=== PATIENT | male | born 1965 | race Caucasian/White ===

== ENCOUNTER 2025-04-20 19:00 | Inpatient (IN) | payer MEDICARE, MEDICAID, SELFPAY ==
[2025-04-20] VITALS (18 sets, daily range): BP systolic 108–126; BP diastolic 49–92; PULSE 70–88; RESP 12–26; TEMP 36.4–36.8; O2SAT 90–100; BMI 33.3
--- NOTE | ~2025-04-20 | CT_ITS ---
CT HEAD NON-CONTRAST Clinical History: change in status Comparison: CT brain 04/20/2025 MR brain 04/21/2025 Technique: Unenhanced axial images skull base to vertex Coronal, sagittal reformats CT images acquired with automatic exposure control for dose reduction DLP: 681 mGy-cm Findings: Large encephalomalacia right MCA distribution. No intracerebral hemorrhage. Sulci, ventricles: Unremarkable. No evidence acute territorial infarct. No mass effect, midline shift. Bony calvarium intact. Visualized paranasal sinuses: Clear. Mastoid air cells: Clear. IMPRESSION: 1. No change or acute intracranial findings. Reviewed, dictated and finalized at location R. ICE BAR CASHIER
--- NOTE | ~2025-04-20 | XR_ITS ---
EXAMINATION: XR shoulder LT min 2V DATE: 04/21/2025 11:39 INDICATION: Injury TECHNIQUE: Left shoulder x-rays were obtained. COMPARISON: None. FINDINGS: No displaced fracture dislocation or aggressive bone lesion seen. The greater tuberosity is not well profiled on frontal projection. No focal acute soft tissue abnormality seen. IMPRESSION: 1. No displaced fracture lucency. Exam somewhat limited as above. Reviewed, dictated and finalized at location A. ANET DEVELOPER
--- NOTE | ~2025-04-20 | CT_ITS ---
CT brain wo con HISTORY:ams, left facial droop COMPARISON: None. TECHNIQUE: Axial images were obtained of the head without intravenous contrast. FINDINGS: No acute intracranial hemorrhage, mass effect or midline shift. No extra-axial fluid collections. Large subacute infarct involving the right MCA territory.Visualized paranasal sinuses and mastoid air cells are clear. IMPRESSION: Large subacute infarct involving the right MCA territory. All CT scans at this facility are performed using low dose modulation techniques as appropriate to perform exam including the following: automated exposure control; use of iterative reconstruction technique; adjustment of the mA and/or kV according to patient size (this includes techniques or standardized protocols for targeted exams where dose is matched to indication/reason for exam). Reviewed, dictated and finalized at location S. RALIAN RULES FOOTBALLER IMPRESSION: Large subacute infarct involving the right MCA territory. All CT scans at this facility are performed using low dose modulation techniqu es as appropriate to perform exam including the following: automated exposure c ontrol; use of iterative reconstruction technique; adjustment of the mA and/or kV according to patient size (this includes techniques or standardized protocol s for targeted exams where dose is matched to indication/reason for exam).
--- NOTE | ~2025-04-20 | XR_ITS ---
EXAMINATION: XR hip LT 2V w AP pelvis DATE: 04/21/2025 11:39 INDICATION: Fall TECHNIQUE: Left hip and pelvic x-rays were obtained. COMPARISON: None. IMPRESSION: 1. No fracture subluxation or dislocation identified. 2. Pelvic bones are largely obscured by overlying stool, bowel gas and contrast within the urinary bladder. Reviewed, dictated and finalized at location A. ITY ASSURANCE ASSISTANT
--- NOTE | ~2025-04-20 | CT_ITS ---
CTA CHEST CLINICAL HISTORY: chest pain . COMPARISON: None TECHNIQUE: Helical CTA performed from thoracic inlet to upper abdomen 100 mL Omnipaque 350 Coronal, sagittal reformats. Multiplanar MIPS CT images acquired with automatic exposure control for dose reduction DLP: 1046 mGy-cm FINDINGS: Pulmonary arteries: No PE. Thoracic Aorta: No dissection or aneurysm. Heart/pericardium: Unremarkable. RV/LV ratio: Normal. Lungs/Pleura: Emphysema. Dependent left lower lobe airspace disease. Bibasilar dependent atelectasis. Tracheobronchial tree: Patent. Nodes: No enlarged nodes. Bones: No acute bony abnormality. Soft tissues: Unremarkable. Visualized upper abdomen: Unremarkable. IMPRESSION: 1. Left lower lobe aspiration and/or pneumonia. 2. No PE. Reviewed, dictated and finalized at location R. N DESIGNER
--- NOTE | ~2025-04-20 | CT_ITS ---
REFERENCE: [None available.] TECHNIQUE: Axial mm images of the head and neck were obtained without and with infusion of contrast dose of intravenous contrast. Postcontrast 1.25 mm axial images were then obtained. On an independent workstation, 0.625 mm axial images were utilized to render MIP and MPR images of the intracranial circulation. CTA NECK: The aortic arch demonstrates normal caliber and patency. Normal branching pattern is noted of the supraaortic vessels. The origins of the supraaortic vessels are widely patent.. The common carotid and cervical segments of the ICA and ECA demonstrate normal caliber and patency. The vertebral arteries are symmetric in size, demonstrating normal patency. CTA HEAD: The the right M1 is patent. The right M2 and M3 segments a stenotic but patent. Intracranial ICA, OSEAS, and left MCA demonstrate normal caliber and patency. No aneurysm is identified. The distal vertebral, basilar, and bilateral posterior cerebral arteries demonstrate normal caliber and patency. The superior cerebellar arteries are also widely patent. NONVASCULAR FINDINGS: The soft tissue of the neck is unremarkable. No mass or pathologic enhancement is noted. There is no pathologically enlarged lymphadenopathy. The airway is patent. No acute intracranial hemorrhage, mass, or extraaxial fluid collections are noted. Ventricular size is normal. The skull is intact. The visualized mastoid air cells and sinuses are clear. There is no pathologic enhancement. IMPRESSION: Moderate stenosis but patent right M2 and M3 segments as well as the distal branches. Reviewed, dictated and finalized at location S. SCIENCE PROFESSOR IMPRESSION: Moderate stenosis but patent right M2 and M3 segments as well as the distal bra nches.
--- NOTE | ~2025-04-20 | US_ITS ---
BILATERAL LOWER EXTREMITY VENOUS DUPLEX Clinical History: left leg swollen, and fall . Comparison: None. Technique: Grayscale, color, duplex/spectral Doppler sonography bilateral lower extremities. Findings/impression: Left leg: POSITIVE for DVT common femoral vein through calf veins. Right leg: Negative for DVT Reviewed, dictated and finalized at location R. OR ARCHITECT/DESIGN MANAGER
--- NOTE | ~2025-04-20 | MR_ITS ---
EXAM/PROCEDURE: MR brain/brain stem wo/w con HISTORY: possible CVA COMPARISON: CT exam from earlier same date TECHNIQUE: Pre and postcontrast multiplanar MRI of the brain performed FINDINGS: On DWI sequences, no compelling areas of restricted diffusion. Large right MCA distribution infarction is almost entirely hyperintense on ADC and hypointense on DWI images with mild heterogeneity. Small areas of isointense ADC image signal correspond to areas of slightly increased DWI signal suggests on image 22 series 3, the posterior margin of the upper lateral ventricle. No mass effect or hemorrhage. Mild diffuse volume loss and scattered periventricular T2 weighted hyperintense white matter foci are present. On postcontrast series no abnormal enhancing lesions or masses. Prominent vascular channels in the area of infarction likely represent luxury reperfusion. Paranasal periorbital calvarial structures appear within normal limits. IMPRESSION: 1. Large right MCA distribution infarction probably representing early chronic stage. No hemorrhage or acute ischemic event identified. 2. Other chronic findings as above. Reviewed, dictated and finalized at location A. LLED NURSE
[2025-04-20 19:13] LABS: Estimated Glomerular Filt Rate > 60
[2025-04-20 19:16] LABS: Hematocrit 39.8 % (42.0-52.0); Hemoglobin 13.6 g/dL (14.0-18.0); Immature Granulocyte Percent A 0.2 % (0-0.5); Lymphocytes Absolute Auto 0.92 K/mm3 (0.9-3.2); Mean Corpuscular HGB Conc 34.2 g/dl (32-36); Mean Corpuscular Hemoglobin 31.3 pg (26-34); Mean Corpuscular Volume 91.7 fl (80-100); Nucleated Red Blood Cells Absolute Auto 0.000 K/mm3 (0.0-0.012); Nucleated Red Blood Cells Perc 0.0 % (0.0-0.2); Platelet Count Result 150 k/mm3 (150-375); Red Blood Count 4.34 M/mm3 (4.6-6.20); White Blood Count 6.6 K/mm3 (4.5-10.0)
--- NOTE | 2025-04-20 19:24 | ED_ITS ---
HPI - Neuro Symptoms/Deficit General Chief Complaint: Suspected CVA Stated Complaint: POSSIBLE CVA; NEW DROOP AND SLURRED SPEECH. Source: patient and EMS Mode of arrival: EMS Limitations: no limitations History of Present Illness HPI Narrative: this is a 60-year-old male with history of CVAs who presents to the ED for stroke symptoms. Per EMS, patient was experiencing severe weakness when he was released from prison at about 4:00 p.m. and was having stroke-like symptoms so a bystander called EMS. On their arrival, he did have left-sided droop and a glucose of 38. He was given amp of D50 but continued to have the drip. Patient states that he felt mucus since he was released from prison. He states that about 6 months ago he had 5 strokes in a row. He states that he was stopped on his blood thinner previously. Denies fevers, chills, chest pain, shortness of breath Related Data Home Medications ?Medication ?Instructions ?Recorded ?Confirmed ?Last Taken ?Type apixaban 5 mg tablet (Eliquis) mg 04/20/25 Unknown Hi story atorvastatin 40 mg tablet mg 04/20/25 Unknown History baclofen 10 mg tablet mg 04/20/25 Unknown History fluoxetine 20 mg capsule mg 04/20/25 Unknown History gabapentin 300 mg capsule mg 04/20/25 Unknown History ibuprofen 200 mg tablet 400 mg PO Q4H PRN pain 04/2004/20/25 Unknown History sertraline 25 mg tablet mg 04/20/25 Unknown History Allergies Allergy/AdvReac Type Severity Reaction Status Date / Time Penicillins Allergy Mild HIVES Verified 04/20/25 22:45 Review of Systems 2 Review of Systems: Gen.: Denies fevers or chills Eyes: Denies eye pain or visual change ENT: Denies congestion Respiratory: Denies shortness of breath or cough CV: Denies chest pain or palpitations GI: Denies abdominal pain nausea, emesis or diarrhea denies burning, urgency, frequency or hematuria Musculoskeletal: Denies back pain or muscle pain Neuro: As per HPI Skin: Denies rash Except as documented, all other systems reviewed and negative COUNTS INCLUDE 234 BEDS AT THE [facility] Family History Family History (Updated 04/20/25 @ 22:47 by Dotty Ivey RN) Father Bone cancer Social History Social History Smoking status: Current every day smoker Tobacco type: cigarettes and e-cigarettes/vaping Alcohol intake: current Substance use: never Substance use type: does not use Lack of Transportation: YES Lack of Food: Never True Current Housing: I Do Not Have Housing Concerned About Future Housing: YES Difficulty Paying Gas/Electric Bills: No Difficulty Paying for Meds: YES Currently Unemployed: No Education: High School Diploma/GED Difficulty w/ Childcare or Family Care: No Spiritual care concerns: No Exam 2 Narrative: APPEARANCE: No acute distress, nontoxic, resting in bed EYES: EOMI HEENT: Normocephalic, atraumatic, OMM RESPIRATORY: No respiratory distress Clear to auscultation bilaterally with no rhonchi wheezing or rales. CARDIOVASCULAR: Regular rate and rhythm without murmurs rubs or gallops. ABDOMINAL: Soft, nontender, nondistended, no rebound or guarding MUSCULOSKELETAl: Moves all extremities. No clubbing, cyanosis or edema. NEURO: Awake and alert. Following commands, speech normal. NIHSS 5 SKIN:: Warm, dry. No rashes lesions or abrasions PSYCHIATRIC: Normal affect/mood, Course Vital Signs Vital signs: Vital Signs Pulse Rate 88 04/20/25 19:20 Respiratory Rate 22 H 04/20/25 19:20 Pulse Oximetry 95 04/20/25 19:20 Temperature 97.5 F L 04/20/25 22:47 Pulse Rate 83 04/21/25 00:00 Respiratory Rate 20 04/20/25 22:47 Blood Pressure 118/67 04/20/25 22:47 Pulse Oximetry 90 04/20/25 22:47 Oxygen Delivery Room Air 04/20/25 22:50 MDM - Neuro Symptoms/Deficit MDM Narrative Medical decision making narrative: 52-year-old male Presenting for stroke symptoms. Patient seen a stroke., had left facial droop and left upper extremity weakness. Differentials include but are not limited to: CVA, TIA, ICH, meningitis, UTI, cancer, drug intoxication, hypoglycemia, electrolyte abnormality Notable exam findings: NIHSS 5, heart and lungs clear Notable lab findings: CBC without significant abnormalities. CMP without significant abnormalities. TSH slightly elevated at 4.76. UA clear. UDS negative. Notable imaging findings: CT head consistent with a subacute right MCA stroke. CTA head showed moderate stenosis but patent right M2 and M3 segments While patient is in the window of last known well, subacute stroke suggest that this happened several days ago. Suspect that the hypoglycemia is what caused his presentation today. Patient was given aspirin and Brilinta. I discussed case with on-call neurology, Dr. Herrera, will see the patient as consult. Case was discussed with hospitalist, Dr. Santiago will admit the patient. Medical Records Attestation: I reviewed the patient's medical records. Lab Data Attestation: I reviewed the patient's lab results. 04/20/25 19:09 04/20/25 20:10 Labs: Lab Results 04/20/25 04/20/25 04/20/25 Range/Units 19:09 19:50 20:10 WBC 6.6 (4.5-10.0) K/mm3 RBC 4.34 L (4.6-6.20) M/mm3 Hgb 13.6 L (14.0-18.0) g/dL Hct 39.8 L (42.0-52.0) % MCV 91.7 (80-100) fl MCH 31.3 (26-34) pg MCHC 34.2 (32-36) g/dl RDW 12.5 (11.5-14.5) % Plt Count 150 (150-375) k/mm3 MPV 9.6 (7.4-10.4) fl Immature Gran % (Auto) 0.2 (0-0.5) % Neut % (Auto) 76.3 H (45.5-73.1) % Lymph % (Auto) 14.0 L (18.3-44.2) % [place] % (Auto) 7.7 (2.6-8.5) % Eos % (Auto) 1.2 (0-4.4) % Baso % (Auto) 0.6 (0.2-1.2) % Lymph # (Auto) 0.92 (0.9-3.2) K/mm3 [place] # (Auto) 0.5 (0.1-0.6) K/mm3 Eos # (Auto) 0.1 (0-0.3) K/mm3 Baso # (Auto) 0.0 (0.0-0.1) K/mm3 Abs Immat Gran (auto) 0.01 (0.00-0.031) K/mm3 Absolute Neuts (auto) 5.0 (1.3-6.7) K/mm3 Absolute Nucleated RBC 0.000 (0.0-0.012) K/mm3 Nucleated RBC % 0.0 (0.0-0.2) % Sodium 135 L (137-145) mmol/L Potassium 3.7 (3.4-5.0) mmol/L Chloride 103 (98-107) mmol/L Carbon Dioxide 27 (22-30) mmol/L Anion Gap 5 (4-12) mmol/L BUN 10 (9-20) mg/dL Creatinine 0.70 0.80 (0.7-1.3) mg/dL Estim Creat Clear Calc Not Reportable Not Reportable Estimated GFR > 60 > 60 (59 - ) Glucose 131 H (65-110) mg/dL POC Capillary Glucose (65-105) mg/dl Calcium 8.9 (8.4-10.2) mg/dL Total Bilirubin 0.6 (0.2-1.3) mg/dL AST 21 (17-59) U/L ALT 13 (6-50) U/L Alkaline Phosphatase 88 (38-126) U/L Troponin I < 0.012 (0.000-0.034) ng/mL Total Protein 6.8 (6.3-8.2) g/dL Albumin 4.0 (3.5-5.1) g/dL TSH 4.760 H (0.465-4.680) uIU/mL Free T4 1.29 (0.78-2.19) ng/dL Urine Color Yellow (Yellow) Urine Appearance Clear (Clear) Urine pH 5.5 (5.0-9.0) Ur Specific [place] > 1.045 H (1.001-1.035) Urine Protein Negative (Negative) mg/dL Urine Glucose (UA) Negative (Negative) mg/dL Urine Ketones Trace H (Negative) mg/dL Ur Blood (Man) Negative (Negative) Urine Nitrate Negative (Negative) Urine Bilirubin Negative (Negative) Urine Urobilinogen 1.0 (<2.0) mg/dL Leukocyte Esterase Rfl Negative (Negative) DENA/UL Salicylates < 1.0 L (2-20) mg/dL Urine Opiates Screen Negative (Negative) Urine Methadone Screen Negative (Negative) Acetaminophen < 10 L (10-30) ug/mL Ur Barbiturates Screen Negative (Negative) Ur Phencyclidine Scrn Negative (Negative) Ur Amphetamine Screen Negative (Negative) U Benzodiazepines Scrn Negative (Negative) Urine Cocaine Screen Negative (Negative) U Cannabinoids Screen Negative (Negative) Ethyl Alcohol < 10 (<10) mg/dL 04/20/25 Range/Units 21:23 WBC (4.5-10.0) K/mm3 RBC (4.6-6.20) M/mm3 Hgb (14.0-18.0) g/dL Hct (42.0-52.0) % MCV (80-100) fl MCH (26-34) pg MCHC (32-36) g/dl RDW (11.5-14.5) % Plt Count (150-375) k/mm3 MPV (7.4-10.4) fl Immature Gran % (Auto) (0-0.5) % Neut % (Auto) (45.5-73.1) % Lymph % (Auto) (18.3-44.2) % [place] % (Auto) (2.6-8.5) % Eos % (Auto) (0-4.4) % Baso % (Auto) (0.2-1.2) % Lymph # (Auto) (0.9-3.2) K/mm3 [place] # (Auto) (0.1-0.6) K/mm3 Eos # (Auto) (0-0.3) K/mm3 Baso # (Auto) (0.0-0.1) K/mm3 Abs Immat Gran (auto) (0.00-0.031) K/mm3 Absolute Neuts (auto) (1.3-6.7) K/mm3 Absolute Nucleated RBC (0.0-0.012) K/mm3 Nucleated RBC % (0.0-0.2) % Sodium (137-145) mmol/L Potassium (3.4-5.0) mmol/L Chloride (98-107) mmol/L Carbon Dioxide (22-30) mmol/L Anion Gap (4-12) mmol/L BUN (9-20) mg/dL Creatinine (0.7-1.3) mg/dL Estim Creat Clear Calc Estimated GFR (59 - ) Glucose (65-110) mg/dL POC Capillary Glucose 110 H (65-105) mg/dl Calcium (8.4-10.2) mg/dL Total Bilirubin (0.2-1.3) mg/dL AST (17-59) U/L ALT (6-50) U/L Alkaline Phosphatase (38-126) U/L Troponin I (0.000-0.034) ng/mL Total Protein (6.3-8.2) g/dL Albumin (3.5-5.1) g/dL TSH (0.465-4.680) uIU/mL Free T4 (0.78-2.19) ng/dL Urine Color (Yellow) Urine Appearance (Clear) Urine pH (5.0-9.0) Ur Specific [place] (1.001-1.035) Urine Protein (Negative) mg/dL Urine Glucose (UA) (Negative) mg/dL Urine Ketones (Negative) mg/dL Ur Blood (Man) (Negative) Urine Nitrate (Negative) Urine Bilirubin (Negative) Urine Urobilinogen (<2.0) mg/dL Leukocyte Esterase Rfl (Negative) DENA/UL Salicylates (2-20) mg/dL Urine Opiates Screen (Negative) Urine Methadone Screen (Negative) Acetaminophen (10-30) ug/mL Ur Barbiturates Screen (Negative) Ur Phencyclidine Scrn (Negative) Ur Amphetamine Screen (Negative) U Benzodiazepines Scrn (Negative) Urine Cocaine Screen (Negative) U Cannabinoids Screen (Negative) Ethyl Alcohol (<10) mg/dL Imaging Data Attestation: I personally reviewed and interpreted this imaging study as follows: Radiologist's impression: Impressions Head CT 04/20/25 19:09 IMPRESSION: Large subacute infarct involving the right MCA territory. All CT scans at this facility are performed using low dose modulation techniques as appropriate to perform exam including the following: automated exposure control; use of iterative reconstruction technique; adjustment of the mA and/or kV according to patient size (this includes techniques or standardized protocols for targeted exams where dose is matched to indication/reason for exam). Head/Neck CTA 04/20/25 19:22 IMPRESSION: Moderate stenosis but patent right M2 and M3 segments as well as the distal branches. ECG Data EKG #1: Attestation: I personally reviewed and interpreted this ECG as follows: ECG completion date: 04/20/25 ECG completion time: 19:27 Interpretation: Normal sinus rhythm rate 78, normal axis normal intervals, no acute ST or T-wave changes Discharge Plan Discharge Clinical Impression: Ischemic stroke, Hypoglycemia Patient Disposition: Still a Patient Condition: Stable
--- NOTE | 2025-04-20 19:24 | ECG_ITS ---
Test Date: 2025-04-20 19:27:33 Measurements Intervals [place] Rate: 78 P: 36 ND: 144 QRS: 24 QRSD: 92 T: 70 QT: 390 QTc: 446 Interpretive Statements SINUS RHYTHM LOW QRS VOLTAGE IN PRECORDIAL LEADS [QRS DEFLECTION < 1.0 mV IN CHEST LEADS] Electronically Signed On 04-21-2025 17:31:29 SPA MANAGER by Lio Avalos M.D.
[2025-04-20 19:26] LABS: Acetaminophen < 10 ug/mL (10-30); Salicylate < 1.0 mg/dL (2-20)
[2025-04-20 19:27] LABS: Alanine Aminotransferase 13 U/L (6-50); Albumin Level 4.0 g/dL (3.5-5.1); Alkaline Phosphatase 88 U/L (38-126); Anion Gap 5 mmol/L (4-12); Aspartate Amino Transferase 21 U/L (17-59); Bilirubin,Total 0.6 mg/dL (0.2-1.3); Blood Urea Nitrogen 10 mg/dL (9-20); Calcium 8.9 mg/dL (8.4-10.2); Carbon Dioxide 27 mmol/L (22-30); Chloride 103 mmol/L (98-107); Estimated Glomerular Filt Rate > 60; Glucose 131 mg/dL (65-110); Potassium 3.7 mmol/L (3.4-5.0); Sodium 135 mmol/L (137-145); Total Protein 6.8 g/dL (6.3-8.2)
[2025-04-20 19:39] LABS: Troponin I < 0.012 ng/mL (0.000-0.034)
[2025-04-20] MEDS: ASPIRIN 81 MG CHEWABLE TABLET 162 MG PO (19:45)
[2025-04-20] MEDS: CLOPIDOGREL BISULFATE 300 MG TABLET PO (19:46)
[2025-04-20] MEDS: SODIUM CHLORIDE 0.9% IV 1,000 ML 999 ML IV CONT (19:46)
[2025-04-20 19:57] LABS: Thyroid Stimulating Hormone 4.760 uIU/mL (0.465-4.680)
--- OUTSIDE RECORDS SUMMARY | 2025-04-20 20:08 | XMS_ITS | Clinical Summary ---
Author Organization [facility] Address [address] [place] [address] Care Team Providers Care Is Technician Name Role Phone Renee Barbosa MD Primary Care Provider [phone] Allergies Active Allergy Reactions Criticality Noted Date Comments Penicillins Rash,Hives High 05/16/2018 Medications ondansetron (ZOFRAN) 4 mg/2 mL injectionIndica tions:Nausea and Vomiting Infuse 2 mL (4 mg total) IV every 6 (six) hours as needed for nausea or vomiting for 2 minutes 10/21/[address] (PROTONIX) 20 mg EC tabletIndicatio ns:Treatment of Non-Bleeding Gastric Disorder Take 1 tablet (20 mg total) by mouth daily 10/22/2024 10/23/19 26 Active ramelteon (ROZEREM) 8 mg tabletIndicatio ns:Sleep-Onset Insomnia Take 1 tablet (8 mg total) by mouth nightly 10/21/2024 Active ergocalciferol (VITAMIN D) 50,000 unit capsule Take 1 capsule (50,000 Units total) by mouth once a week Active baclofen (LIORESAL) 10 mg tablet Take 0.5 tablets (5 mg total) by mouth 2 (two) times a day 30 tablet 03/20/2025 Active atorvastatin (LIPITOR) 40 mg tablet Take 1 tablet (40 mg total) by mouth daily 30 tablet 03/20/2025 Active Eliquis 5 mg tablet Take 1 tablet (5 mg total) by mouth 2 (two) times a day 60 tablet 03/20/2025 Active furosemide (LASIX) 20 mg tablet Take 2 tablets (40 mg total) by mouth daily 30 tablet 03/20/2025 Active gabapentin (NEURONTIN) 300 mg capsuleIndicati ons:Neuropathic Pain Take 1 capsule (300 mg total) by mouth 3 (three) times a day 90 capsule 03/20/2025 Active sertraline (ZOLOFT) 25 mg tabletIndicatio ns:Anxiety with Depression Take 1 tablet (25 mg total) by mouth daily 30 tablet 03/20/2025 Active Active Problems Problem Noted Date Diagnosed Date History of multiple cerebrovascular accidents (C VAs) 03/09/2025 Assessment & Plan (03/09/2025 7:13 AM CDT): Residual left-sided deficit. CT scan on 01/26/25 shows right cerebral hemisphere and basal ganglia infarction with large area of encephalomalacia. Full records not available. - obtain full records from retirement - patient instructed to bring medications to appointment for full med rec - referral to neurology - referral to PT and OT for previous CVA with residual left sided deficit, braces for leg and hand - new wheelchair - follow-up in 2-4 weeks for further management Palpitations 03/09/2025 Assessment & Plan (03/09/2025 7:10 AM CDT): Differential includes A-Fib, frequent PVCs. No current symptoms or abnormal exam findings. - EKG - 30 day event monitor - referral to cardiology PFO (patent foramen ovale) 03/09/2025 Assessment & Plan (03/09/2025 7:09 AM CDT): WILBERT on 10/15/24 showed early positive bubble study suggestive of PFO. Otherwise WNL with no sign of CHF. 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 [facility] [address] [place] [address] Lainey Naylor 03/20/2025 Telephone [facility] [address] [facility] [address] [place] [address] Jacy Acharya MD 03/03/2025 10:00 AM CDT Office Visit [facility] [place] [address] [facility] [address] [place] [address] Renee Barbosa MD History of multiple cerebrovascular accidents (CVAs) (Primary Dx); Palpitations; PFO (patent foramen ovale) 03/03/2025 Orders Only [facility] at [address] [place] [address] Renee Barbosa MD Cerebrovascular accident (CVA), unspecified mechanism (HCC) (Primary Dx); Paralysis of left lower extremity (HCC); Paralysis of upper extremity (HCC) 03/03/2025 Orders Only [facility] at [address] [place] [address] Renee Barbosa MD Palpitations; Cerebrovascular accident (CVA), unspecified mechanism (HCC) 01/29/2025 [facility] Outreach [facility] Accountable Care Organization [address] [place] [address] Kosta Stewart MA 01/26/2025 9:32 AM CDT - 01/26/2025 12:00 PM CDT Emergency [facility] Emergency Department [address] [place] [address] Jose Luis Ayala MD Minor head injury, initial encounter (Primary Dx); Contusion of left shoulder, initial encounter; Contusion of left hip, initial encounter; Medication refill Discharge Disposition: Discharge to home or self care from Last 3 Months Immunizations Immunization Administration Dates Next Due Influenza, Quadrivalent, Spl it, Intramuscular 04/23/2023,06/13/2018 Pneumococcal Conjugate Pcv20 09/23/2024 Tdap 10/06/2024(Deferred: Contraindic ation) Surgical History Surgery Date Site/Laterality Comments BRONCHOSCOPY SPINAL FIXATION SURGERY Medical History Medical History Date Comments PFO (patent foramen ovale) CVA (cerebral vascular accident) (HCC) Vitamin D deficiency HLD (hyperlipidemia) HTN (hypertension) Lung cancer (HCC) Social History Tobacco Use Types Packs/Day Years Used Date Smoking Tobacco: Former Cigarettes Smokeless Tobacco: Never Tobacco Cessation:Counseling Given: Not Answered Alcohol Use Standard Drinks/Week Comments Never 0 (1 standard drink = 0.6 oz pur e alcohol) PHQ-2 Answer Date Recorded PHQ-2 Total Score (If total score is 3 or more points, staff should administer the PHQ-9) 0 03/03/2025 AUDIT-C Answer Date Recorded Q1: How often do you have a drink containing alcohol? Never 03/03/2025 Q2: How many drinks containi ng alcohol do you have on a typical day when you are drinking? Patient does not drink Q3: How often do you have si x or more drinks on one occasion? Never 03/03/2025 Personal Safety Answer Date Recorded Have you ever been in or are you currently in a harmful physical or emotional relationship or is someone making you feel afraid or unsafe? 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[employer] Gender Identity Not on file Sexual Orientation Not on file Last Filed Vital Signs Vital Sign Reading Time Taken Comments Blood Pressure 124/70 03/03/2025 10:15 AM CDT Pulse 64 03/03/2025 10:15 AM CDT Temperature 36.7 C (98.1 F) 01/26/2025 8:42 AM CDT Respiratory Rate 20 03/03/2025 10:15 AM CDT Oxygen Saturation 97% 03/03/2025 10:15 AM CDT Inhaled Oxygen Concentration - - Weight 105.7 kg (233 lb) 01/26/2025 8:42 AM CDT Height 177.8 cm (5' 10) 03/03/2025 10:15 AM CDT Body Mass Index 33.43 01/26/2025 8:42 AM CDT Plan of Treatment Upcoming Encounters Date Type Department Care Team (Late st Contact Info) Description 12/22/2025 9:30 AM CDT Hospital Encounter [facility] 1 [place] [address] Francisco Javier Owusu, [address] [place] [address] 12/22/2025 9:30 AM CDT - 12/22/2025 10:00 AM CDT Surgery [facility] 1 [place] [address] Francisco Javier Owusu, [address] [place] [address] COLONOSCOPY Scheduled Procedures Name Priority Associated Diagnoses Date/Ti me COLONOSCOPY Encounter for screening colonoscopy 12/22/2025 9:30 AM CDT Health Maintenance Due Date Last Done Comments Colon Cancer Screening-Colonoscopy 1967 Prostate Cancer Screening-PSA 1967 DTaP/Tdap/Td Vaccine (1 - Tdap) 1978 Hepatitis B Screening 1985 Regular Well Visit/Exam 18-64 1985 Zoster Vaccine (1 of 2) 2017 Covid-19 Vaccine ( season) 2025 06/01/2022, 10/10/2021, 12/07/2020, Additional history exists Influenza Vaccine (#1) 2025 04/23/2023, 2018 Depression Screening 03/03/2026 03/03/2025, 10/07/19 25 Pneumococcal vaccine <65 Aged Out 09/23/2024 No longer eligible based on patient's age to complete this topic Hepatitis C Screening Completed 10/08/2024 Procedures Procedure Name Priority Date/Time Associated Diagnosis Comments XR HIP LEFT W PELVIS 2 OR 3 VIEWS ED 01/26/2025 10:49 AM CDT XR SHOULDER LEFT 2 OR MORE VIEWS ED 01/26/2025 10:[address] HEAD WO CONTRAST ED 01/26/2025 1 0:31 AM CDT EGFR STAT 01/26/2025 10:13 AM CDT DIFFERENTIAL AUTO STAT 01/26/2025 10: 13 AM CDT PROTIME-INR STAT 01/26/2025 10:13 AM CDT COMPREHENSIVE METABOLIC PANEL STAT 01/26/2025 10:13 AM CDT CBC WITH AUTO DIFFERENTIAL STAT 01/26/2025 10:13 AM CDT HEPATITIS PANEL, ACUTE STAT 10:20 AM CDT from Last 3 Months or Most Recently Relevant to Health Maintenance Results * XR Hip Left 2 or 3 Views W Pelvis (01/26/2025 10:49 AM CDT) Anatomical Region Laterality Modality Lower Extremities, Hip, Pelvis Left C omputed Radiography 01/26/2025 10:5 7 AM CDT Narrative 01/26/2025 10:58 AM CDT EXAM DESCRIPTION: XR HIP LEFT 2 OR 3 VIEWS W PELVIS REASON FOR STUDY: fall Pt in w/c to ED with cc of L neck/L shoulder and L hip pain. Per pt he fell approx 3 months ago and dislocated his shoulder. TECHNIQUE: Frontal pelvis and AP and frog-leg view left hip. COMPARISON: CT abdomen and pelvis 10/06/2024. FINDINGS: Both femoral heads project normally over the acetabula. No acute fracture. The obturator rings are intact. Mild arthritic change right hip with the femoral head neck contour unchanged. Sacroiliac joints intact. No erosion or aggressive osseous lesion. IMPRESSION: No acute osseous abnormality of the pelvis or left hip. THIS IS AN ELECTRONICALLY VERIFIED FINAL REPORT 01/26/2025 10:58 AM - Electronically signed by Gustavo Gallagher M.D. CH: LOVELY Report ID: [id number] Reading Location: [id number] Procedure Note Gustavo Gallagher MD - 01/26/2025 EXAM DESCRIPTION: XR HIP LEFT 2 OR 3 VIEWS W PELVIS REASON FOR STUDY: fall Pt in w/c to ED with cc of L neck/L shoulder and L hip pain. Per pt hefell approx 3 months ago and dislocated his shoulder. TECHNIQUE: Frontal pelvis and AP and frog-leg view left hip. COMPARISON: CT abdomen and pelvis 10/06/2024. FINDINGS: Both femoral heads project normally over the acetabula. No acutefracture. The obturator rings are intact. Mild arthritic change right hip with the femoral head neck contour unchanged. Sacroiliac joints intact. Noerosion or aggressive osseous lesion. IMPRESSION: No acute osseous abnormality of the pelvis or left hip. THIS IS AN ELECTRONICALLY VERIFIED FINAL REPORT 01/26/2025 10:58 AM - Electronically signed by Gustavo Gallagher M.D. CH: Report ID: [id number] Reading Location: [id number] Jose Luis Ayala MD IMG XR PROCEDURES Final Result * XR Shoulder Left 2 or More Views (01/26/2025 10:49 AM CDT) Anatomical Region Laterality Modality Upper Extremities, Shoulder Left Comp uted Radiography 01/26/2025 10:5 8 AM CDT Narrative 01/26/2025 10:59 AM CDT EXAM DESCRIPTION: XR SHOULDER LEFT 2 OR MORE VIEWS REASON FOR STUDY: fall Best obtainable images done in wheelchair. Pt unable to stand Pt in w/c to ED with cc of L neck/L shoulder and L hip pain. Per pt he fell approx 3 months ago and dislocated his shoulder. TECHNIQUE: Three views left shoulder. COMPARISON: None. FINDINGS: Mild arthritic change left acromioclavicular joint. The humeral head projects normally over the glenoid. Included left upper ribs intact. No erosion or aggressive osseous lesion. IMPRESSION: 1. No acute osseous abnormality of the left shoulder. 2. Mild arthritic change. THIS IS AN ELECTRONICALLY VERIFIED FINAL REPORT 01/26/2025 10:59 AM - Electronically signed by Gustavo Gallagher M.D. CH: LOVELY Report ID: [id number] Reading Location: [id number] Procedure Note Gustavo Gallagher MD - 01/26/2025 EXAM DESCRIPTION: XR SHOULDER LEFT 2 OR MORE VIEWS REASON FOR STUDY: fall Best obtainable images done in wheelchair. Pt unable to stand Pt in w/residence hall director ED with cc of L neck/L shoulder and L hip pain. Per pt he fell approx 3months ago and dislocated his shoulder. TECHNIQUE: Three views left shoulder. COMPARISON: None. FINDINGS: Mild arthritic change left acromioclavicular joint. The humeral headprojects normally over the glenoid. Included left upper ribs intact. No erosionor aggressive osseous lesion. IMPRESSION: 1. No acute osseous abnormality of the left shoulder. 2. Mild arthritic change. THIS IS AN ELECTRONICALLY VERIFIED FINAL REPORT 01/26/2025 10:59 AM - Electronically signed by Gustavo Gallagher M.D. CH: LOVELY Report ID: [id number] Reading Location: [id number] Jose Luis Ayala MD IMG XR PROCEDURES Final Result * CT Head WO Contrast (01/26/2025 10:31 AM CDT) Anatomical Region Laterality Modality Head and Neck N/A Computed Tomogra phy 01/26/2025 10:5 3 AM CDT Narrative 01/26/2025 10:57 AM CDT EXAM DESCRIPTION: CT HEAD WO CONTRAST REASON FOR STUDY: head trauma Fall yesterday. Hx of stroke 2-3 months ago. TECHNIQUE: Axial images acquired through the brain without intravenous contrast. Images stored on PACS. Automated exposure control was used as a dose optimization technique for this examination. COMPARISON: 10/09/2024. FINDINGS: BRAIN: There has been interval evolution of the right cerebral hemisphere and basal ganglia infarction, now with large area of encephalomalacia. The previous cerebral edema and mass effect have resolved. There is no acute intraparenchymal hemorrhage. No new cerebral edema, mass, or mass effect. No evidence of hydrocephalus. EXTRA-AXIAL SPACES: No extra-axial fluid collection, extra-mass or mass effect. CALVARIUM: Bone windows demonstrate no acute skull base or calvarial abnormality. SINUSES/MASTOIDS: Predominantly clear. Old healed right maxillary sinus fracture. ORBITS: Orbits are unremarkable. OTHER: No other significant abnormality. IMPRESSION: 1. No evidence of an acute intracranial abnormality. 2. Interval evolution of the right cerebral hemisphere and basal ganglia infarction, now with large area of encephalomalacia. THIS IS AN ELECTRONICALLY VERIFIED FINAL REPORT 01/26/2025 10:57 AM - Electronically signed by Gustavo Gallagher M.D. CH: LOVELY Report ID: [id number] Reading Location: [id number] Procedure Note Gustavo Gallagher MD - 01/26/2025 EXAM DESCRIPTION: CT HEAD WO CONTRAST REASON FOR STUDY: head trauma Fall yesterday. Hx of stroke 2-3 months ago. TECHNIQUE: Axial images acquired through the brain without intravenous contrast. Images stored on PACS. Automated exposure control was used asa dose optimization technique for this examination. COMPARISON: 10/09/2024. FINDINGS: BRAIN: There has been interval evolution of the right cerebralhemisphere and basal ganglia infarction, now with large area of encephalomalacia.The previous cerebral edema and mass effect have resolved. There is no acute intraparenchymal hemorrhage. No new cerebral edema, mass, or mass effect.No evidence of hydrocephalus. EXTRA-AXIAL SPACES: No extra-axial fluid collection, extra-mass or mass effect. CALVARIUM: Bone windows demonstrate no acute skull base or calvarial abnormality. SINUSES/MASTOIDS: Predominantly clear. Old healed right maxillary sinus fracture. ORBITS: Orbits are unremarkable. OTHER: No other significant abnormality. IMPRESSION: 1. No evidence of an acute intracranial abnormality. 2. Interval evolution of the right cerebral hemisphere and basal ganglia infarction, now with large area of encephalomalacia. THIS IS AN ELECTRONICALLY VERIFIED FINAL REPORT 01/26/2025 10:57 AM - Electronically signed by Gustavo Gallagher M.D. CH: LOVELY Report ID: [id number] Reading Location: [place] [address] Jose Luis Ayala MD IMG CT PROCEDURES Final Result * eGFR (01/26/2025 10:13 AM CDT) eGFR >90 >=60 mL/min/1. 73 m2 Comment: Interpretive Data Reference Interval Normal >/= 90 mL/min/1.73m2 Mildly decreased* 60 - 89 mL/min/1.73m2 Mildly to moderately decreased 45 - 59 mL/min/1.73m2 Moderately to severely decreased 30 - 44 mL/min/1.73m2 Severely decreased 15 - 29 mL/min/1.73m2 Kidney Failure < 15 mL/min/1.73m2 *Relative to young adult level Estimated glomerular filtration rate is determined by the 2020 CKD-EPI equation recommended by the National Kidney Foundation (A Unifying Approach to GFR Estimation: Recommendations of the NKF-ASK Task Force on Reassessing the Inclusion of Race in Diagnosing Kidney Disease, JASN 202). The CKD-EPI equation should not be used for patients with unstable renal function and has not been validated in children and those over 70. Current interpretive data was last reviewed 2021. Blood 01/26/2025 10:1 3 AM CDT 01/26/2025 10:16 AM CDT Jose Luis Ayala MD LAB BLOOD ORDERABLES Final Res ult [facility] [place]) [address] [facility] Department [place] [address] * Differential, auto (01/26/2025 10:13 AM CDT) Neutrophil abs 5.54 1.50 - 6.50 K/cumm Imm gran abs 0.01 0.00 - 0.10 K/cumm [facility] ([place] Lymphocyte abs 0.94 0.80 - 3.30 K/cumm [facility] ([place] Monocyte abs 0.67 0.20 - 0.80 K/cumm [facility] ([place]) Eosinophil abs 0.11 0.00 - 0.50 K/cumm [facility] ([place]) Basophil abs 0.06 0.00 - 0.10 K/cumm [facility] ([place]) Neutrophil pct 75.7 % [facility] Comment: Interpretive Data Percent cell count reference ranges are not reported, since discordance with absolute values may lead to misinterpretation of CBC data. Current Interpretive Data was last revised on 2017. Imm gran pct 0.1 % [facility] ([place] Comment: Interpretive Data Percent cell count reference ranges are not reported, since discordance with absolute values may lead to misinterpretation of CBC data. Current Interpretive Data was last revised on 2017. Lymphocyte pct 12.8 % [facility] Comment: Interpretive Data Percent cell count reference ranges are not reported, since discordance with absolute values may lead to misinterpretation of CBC data. Current Interpretive Data was last revised on 2017. Monocyte pct 9.1 % [facility] ([place]) Comment: Interpretive Data Percent cell count reference ranges are not reported, since discordance with absolute values may lead to misinterpretation of CBC data. Current Interpretive Data was last revised on 2017. Eosinophil pct 1.5 % [facility] Comment: Interpretive Data Percent cell count reference ranges are not reported, since discordance with absolute values may lead to misinterpretation of CBC data. Current Interpretive Data was last revised on 2017. Basophil pct 0.8 % [facility] ([place] Comment: Interpretive Data Percent cell count reference ranges are not reported, since discordance with absolute values may lead to misinterpretation of CBC data. Current Interpretive Data was last revised on 2017. Blood 01/26/2025 10:1 3 AM CDT 01/26/2025 10:16 AM CDT us Jose Luis Kanumuri MD LAB BLOOD ORDERABLES Final Res ult [facility] ([place] [address] [facility] [employer] [place] [address] * (ABNORMAL) CBC with auto differential (01/26/2025 10:13 AM CDT) WBC 7.33 3.80 - 9.90 K/cumm Hgb 13.3 13.0 - 17.5 g/dL [facility] Hct 39.2 38.9 - 50.3 % [facility] Plt 157 150 - 400 K/cumm [facility] MPV 9.4 9.1 - 12.3 fL [facility] RBC 4.22(L) 4.30 - 5.80 M/cumm [facility] ([place]) MCV 92.9 81.3 - 96.4 fL [facility] MCH 31.5 27.1 - 33.3 pg [facility] MCHC 33.9 32.3 - 35.7 g/dL [facility] RDW CV 12.0 11.1 - 14.9 % [facility] RDW SD 41.1 35.7 - 48.1 fL [facility] NRBC abs 0.00 0.00 - 0.01 K/cumm [facility]) Blood 01/26/2025 10:1 3 AM CDT 01/26/2025 10:16 AM CDT us Jose Luis Ayala MD LAB BLOOD ORDERABLES Final Res ult [facility] ([place]) [address] [facility] [employer] [place] [address] * (ABNORMAL) Protime-INR (01/26/2025 10:13 AM CDT) PT 15.8(H) 10.2 - 13.5 sec [facility] INR 1.41(H) 0.90 - 1.20 [facility] Comment: Interpretive data Oral anticoagulant therapeutic ranges: Venous thromboembolism prophylaxis or treatment: 2.0-3.0 CARDIOLOGY Standard range: 2.0-3.0 High-intensity range: 2.5-3.5 Refer to indication-specific guidelines for appropriate target ranges for prosthetic heart valve replacement. Current interpretive data was last revised on 2019. Blood 01/26/2025 10:1 3 AM CDT 01/26/2025 10:16 AM CDT us Jose Luis Ayala MD LAB BLOOD ORDERABLES Final Res ult [facility] ([place] [address] [facility] Department [place] [address] * (ABNORMAL) Comprehensive metabolic panel (01/26/2025 10:13 AM CDT) Sodium 144 135 - 145 mmol/L [facility] Potassium, pl 4.1 3.3 - 4.9 mmol/L [facility] Chloride 104 97 - 110 mmol/L [facility] CO2 28 22 - 32 mmol/L [facility]) Anion gap 12 2 - 15 mmol/L [facility] BUN 9 6 - 25 mg/dL [facility] Creatinine 0.76(L) 0.80 - 1.30 mg/dL [facility] Glucose 108 70 - 199 mg/dL [facility] Comment: Interpretive Data Fasting glucose >/= 126 mg/dl is diagnostic for diabetes. Fasting is defined as no caloric intake for at least 8 hours. Fasting glucose between 100 mg/dl to 125 mg/dl is diagnostic of prediabetes. In a patient with classic symptoms of hyperglycemia or hyperglycemic crisis, a random glucose >/= 200 mg/dl is diagnostic for diabetes. In the absence of unequivocal hyperglycemia, results should be confirmed by repeat testing. The classification and Diagnosis of Diabetes Diabetes Care 2021; 46: S19-S40. Current interpretive data was last revised 2022. Calcium 9.5 8.5 - 10.3 mg/dL [facility] Bilirubin, total 0.5 0.1 - 1.2 mg/dL [facility] ([place]) Protein, pl 6.4(L) 6.5 - 8.5 g/dL [facility]) Albumin 3.8 3.5 - 5.0 g/dL [facility] Alk phos 105 40 - 130 Units/L [facility] ALT 14 7 - 55 Units/L [facility] AST 16 10 - 50 Units/L [facility]) Blood 01/26/2025 10:1 3 AM CDT 01/26/2025 10:16 AM CDT us Jose Luis Ayala MD LAB BLOOD ORDERABLES Final Res ult [facility] ([place] [address] [facility] Department [place] [address] * Hepatitis panel, acute Blood (10/08/2024 10:20 AM CDT) Hep A IgM Nonreactive Nonreactive Hep B core IgM Nonreactive Nonreactive [facility] Hep C Ab Nonreactive Nonreactive [facility] Comment:Antibodies to HCV no t detected. Does NOT exclude the possibility of recent exposure to HCV. Current interpretive data was last revised on 22 HepBsAg Nonreactive Nonreactive [facility] Blood 10/08/2024 10:2 0 AM CDT 10/08/2024 10:31 AM CDT us Reba Biswas NP LAB MICROBIOLOGY - GENERAL O RDERABLES Final Result [facility] Department [place] [address] from Last 3 Months or Most Recently Relevant to Health Maintenance Insurance [facility] MEDICARE ADVANTAGE [facility] MEDICARE Address: [address] [place], [place] [id number] [facility] Address: [address] [address] [facility] MED[facility] Address: [place] [phone] [employer] Advance Directives For more information, please contact: [phone] * Full Code (Latest Code Status on File) Date Activated Date Inactivated Comments 10/06/2024 10:58 PM 10/21/2024 8:34 PM Care Teams Is Technician Relationship Specialty Start Date End Date Renee Barbosa MD [address] [place] [address] PCP - General Family Medicine 03/03/25
--- OUTSIDE RECORDS SUMMARY | 2025-04-20 20:08 | XMS_ITS | Clinical Summary ---
Author Organization [facility] Address [address], [address] [address] Phone Care Team Providers Care Cookie Mixer Helper Name Role Phone Jana Nino APRN, OBSTETRICS SCRUB NURSE Primary Care Provider Rodney Cruz MD Unavailable Allergies Active Allergy Reactions Criticality Noted Date Comments Penicillins Hives 07/31/2018 Medications ibuprofen (MOTRIN) 600 MG Tablet Take 1 Tab by mouth every 8 hours. 60 Tab 07/31/2018 Active famotidine (PEPCID) 20 MG Tablet Take 20 mg by mouth 2 times daily. 12/20/2022 Active Active Problems Problem Noted Date Diagnosed Date Nodule of apex of right lung 02/08/2023 Hemoptysis 02/08/2023 History of lung cancer 02/08/2023 Tobacco use disorder 02/08/2023 Myocardial infarct, old 02/07/2023 Family History Medical History Relation Name Comments Cancer Father lungs, brain, g eneralized Hypertension Father Relation Name Status Comments Father Mother Other Social History Tobacco Use Types Packs/Day Years Used Date Smoking Tobacco: Every Day Cigarettes 0.5 50 Tobacco Cessation:Ready to Q uit: Not Asked; Counseling Given: Not Answered Alcohol Use Standard Drinks/Week Comments No 0 (1 standard drink = 0.6 oz pur e alcohol) Sex and Gender Information Value Date Recorded Sex Assigned at Not on file Legal Sex Male 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 Gender Identity Not on file Sexual Orientation Not on file Last Filed Vital Signs Vital Sign Reading Time Taken Comments Blood Pressure 110/60 05/10/2023 2:53 PM COMPUTER SCIENCE TEACHER Pulse 71 05/10/2023 2:53 PM COMPUTER SCIENCE TEACHER Temperature 36.6 C (97.9 F) 05/10/2023 2:53 PM COMPUTER SCIENCE TEACHER Respiratory Rate 16 05/10/2023 2:53 PM COMPUTER SCIENCE TEACHER Oxygen Saturation 100% 05/10/2023 2:53 PM COMPUTER SCIENCE TEACHER Inhaled Oxygen Concentration - - Weight 94.1 kg (207 lb 6.4 oz) 05/10/2023 2:53 P M COMPUTER SCIENCE TEACHER Height 177.8 cm (5' 10) 05/10/2023 2:53 PM COMPUTER SCIENCE TEACHER Body Mass Index 29.76 05/10/2023 2:53 PM COMPUTER SCIENCE TEACHER Plan of Treatment Health Maintenance Due Date Last Done Comments Hepatitis C Virus (HCV) Screening 1967 TdaP Immunization 1967 Hepatitis B Immunization (1 of 3 - 19+ 3-dose series) 1986 Pneumococcal Immunization (50+ years) (1 of 2 - PCV) 1986 Medicare Initial AWV [id number] 04/11/2004 Cologuard 2012 Colonoscopy 2012 Colorectal Cancer Screening 2012 Immunochemical Fecal Occult Blood 2012 Zoster Immunization (1 of 2) 2017 PSA Discussion 2022 Influenza Immunization (#1) 2025 04/23/2023, 0 06/13/2018 SARS-COV-2 Immunization ( season) 2025 06/01/2022, 10/10/2021, 12/07/2020, Additional history exists Respiratory Syncytial Virus (RSV) Immunization (Adult) (1 - 1-dose 75+ series) 2042 Lung Cancer Screening Discontinued 01/18/2023 Human Papillomavirus (HPV) Immunization Aged Out No longer eligible based on patient's age to complete this topic Meningococcal Immunization (ACWY) Aged Out No longer eligible based on patient's age to complete this topic Rotavirus Immunization Aged Out No lo nger eligible based on patient's age to complete this topic Insurance MEDICARE C [facility] MEDICAID [place] Care Teams Cookie Mixer Helper Relationship Specialty Start Date End Date Jana Nino APRN, OBSTETRICS SCRUB NURSE [address] [place] [address] PCP - General Advanced Practice Nurse 01/03/23 Rodney Cruz MD [address] [place] [address] Consulting Physician Pulmonary Disease 02/08/23
--- OUTSIDE RECORDS SUMMARY | 2025-04-20 20:08 | XMS_ITS | Data Portability ---
Author Organization [facility] Address [address] [place] [address] Care Team Providers Care Hand Coremaker Name Role Phone JOYCE, JANA Primary Care Provider Assessment Encounter Date Assessment Date Assessment LastModified by Organization Details LastModified Time 04/23/2023 04/23/2023 Mr. Ott presented in office today for f/u appointment. Not available 04/23/2023 14:41:31 10/23/2023 10/23/2023 Mr. Murphy presented in office today for follow up appointment. The patient complained of bilateral anterior elbow and bilateral knee pain. Not available 10/23/2023 14:55:44 04/17/2024 04/17/2024 Mr. Plaza presents in office today for follow up appointment. Not available 04/21/2024 08:31:31 08/25/2024 08/25/2024 Mr. Ott presents for follow up appointment. Not available 08/26/2024 10:02:01 09/23/2024 09/23/2024 Mr. Ott is here for a follow-up, reporting no new symptoms or concerns. No changes in health since the last visit. Not available 09/29/2024 13:49:52 Plan of Treatment Reminders Order Date Submit Date Provider Last Modified By Organization Details Last Modified Time Details Appointments None recorde d. Lab None recorde d. Referral gastroe nterolo gist referra l - colonos copy 2024 025 KRISTAN [facility], [address] [place] [address] Madhav Choib, [place], [address], 5 04:23:22 Procedures None recorde d. Surgeries None recorde d. Imaging None recorde d. Medication Orders omepraz ole 20 mg capsule ,delaye d release 2024 025 [facility]15140, [address], [place], [id number], 5 17:22:18 meloxic am 15 mg tablet 2024 025 [facility] #31119, [address], [place], [id number], 5 17:23:32 montelu kast 10 mg tablet 2024 025 [facility] #03222, [address], [place], [id number], 5 17:22:17 omepraz ole 20 mg capsule ,delaye d release 2023 024 [facility] #62310, [address], [place], [id number], 4 15:38:51 meloxic am 15 mg tablet 2023 024 [facility] #20249, [address], [place], [id number], 4 15:41:21 famotid ine 20 mg tablet 2023 024 [facility] #81251, [address], [place], [id number], 4 15:38:37 meloxic am 7.5 mg tablet 2023 024 [facility] #37890, [address], [place], [id number], 08:33:15 famotid ine 20 mg tablet 2022 023 [email or web address]27671, [address], [place], [id number], 15:38:28 Patient TargetsNo targets recorded. Patient Instructions Encounter Date Encounter Id Patient Instructions Last Modified By Organization Details Last Modified Time 04/23/2023 [id number] A healthy lifest yle: care instructions Not available 04/23/2023 14:53:55 gastroesophageal reflux disease (GERD): care instructions Not available 04/23/2023 14:54:05 - Always present to ER or Urgent Care with any progression of/alarming symptoms, significant changes in symptoms or any concerning or urgent matters Not available 04/23/2023 14:45:48 10/23/2023 [id number] knee pain or inj ury: care instructions Not available 10/23/2023 14:24:26 golfer's elbow: exercises Not available 10/23/2023 14:35:33 - Always present to ER or Urgent Care with any progression of/alarming symptoms, significant changes in symptoms or any concerning or urgent matters Not available 10/23/2023 14:17:01 04/17/2024 [id number] Quitting Tobacco : Care Instructions Not available 04/21/2024 08:35:02 A healthy lifest yle: care instructions Not available 04/21/2024 08:34:22 gastroesophageal reflux disease (GERD): care instructions Not available 04/17/2024 15:39:36 - Always present to ER or Urgent Care with any progression of/alarming symptoms, significant changes in symptoms or any concerning or urgent matters Not available 04/21/2024 08:34:22 08/25/2024 [id number] Quitting Tobacco : Care Instructions Not available 08/26/2024 10:03:23 - Always present to ER or Urgent Care with any progression of/alarming symptoms, significant changes in symptoms or any concerning or urgent matters Not available 08/25/2024 17:22:20 09/23/2024 [id number] Quitting Tobacco : Care Instructions Not available 09/29/2024 13:49:07 A healthy lifest yle: care instructions Not available 09/29/2024 13:48:44 - Always present to ER or Urgent Care with any progression of/alarming symptoms, significant changes in symptoms or any concerning or urgent matters Not available 09/29/2024 13:49:32 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[employer] Referral for Screening for malignant neoplasm of colon colonoscopy Referring Physician: Jana Cook, Family Medicine, Encounter Date: 08/25/2024 Problems Name Problem SNOMED Code Status Onset Date Resolution Date Notes Provider Name and Address Organization Details Recorded Time Gastroesoph ageal reflux disease 870119428 Active 2022 JANA COOK NP Attn: Kevin marrero,[address] [place], [address], [place] [facility] 3 14:39:08 Obesity 312812363 Active 2022 JANA COOK NP Attn: Kevin marrero,[address] [place], [address], [place] 4 14:14:57 Pain of bilateral knee regions 4923001749507 02 Active 2023 JANA COOK NP Attn: Kevin marrero,[address] [place], [address], [place] [facility] 4 14:26:11 Tobacco dependence syndrome 85897056 Active 2023 JANA COOK NP Attn: Kevin marrero,[address] [place], [address], [place] [facility] 4 15:36:09 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 Medical Equipment None Reported. Allergies Allergen ID Allergen Name Allergen Category Reaction Reaction Severity Criticality Documentation Date Start Date Code Code System Note Provider Name and Address Organization Details Recorded Time 468756 Product containin g penicilli n (product) medicatio n hives severe Not available 06/13/2018 30043 8001 SNOMED Theodora Carrillo MA [facility], [facility] 9 12:00:06 Medications Name Sig Start Date Stop Date Status Note LastModified by Organization Details LastModified Time meloxicam 15 mg tablet TAKE 1 TABLET BY MOUTH EVERY DAY FOR 30 DAYS active Not Available Not Available No t Available meclizine 12.5 mg tablet Take 1 tablet 3 times a day by oral route for 30 days. 12/20 completed Not Available Not Available Not Available meloxicam 7.5 mg tablet TAKE 1 TABLET BY MOUTH EVERY DAY 05/29 completed Not Available Not Available Not Available famotidine 20 mg tablet TAKE 1 TABLET BY MOUTH TWICE DAILY 04/17 completed Not Available Not Available Not Available omeprazole 20 mg capsule,saroj yed release TAKE 1 CAPSULE BY MOUTH EVERY DAY active Not Available Not Available No t Available montelukast 10 mg tablet TAKE 1 TABLET BY MOUTH EVERY DAY IN THE EVENING active Not Available Not Available No t Available ibuprofen 600 mg tablet 12/20 completed Not Available Not Available Not Available Vitals Date Recorded Body height Body mass index (BMI) Body weight Body temperature Respiratory rate Heart rate Oxygen saturation Oxygen saturation in Arterial blood by Pulse oximetry Systolic And Diastolic Provider Name and Address Organization Details Last Updated DateTime 5 177.8 cm 35 kg/m2 725020. 9 g 97.3 [degF] 16 /min 72 /min 95 % 95 % 135/81 mm[Hg] Cindy Mcgee MA [facility] 5 17:11:45 Date Recorded Body height Respiratory rate Body mass index (BMI) Body weight Body temperature Heart rate Oxygen saturation Oxygen saturation in Arterial blood by Pulse oximetry Systolic And Diastolic Provider Name and Address Organization Details Last Updated DateTime 5 177.8 cm 16 /min 35.3 kg/m2 274955. 77 g 97.1 [degF] 75 /min 97 % 97 % 130/86 mm[Hg] Cierra Freeman MA [facility] 5 16:00:52 Date Recorded Body height Respiratory rate Body mass index (BMI) Body weight Body temperature Heart rate Oxygen saturation Oxygen saturation in Arterial blood by Pulse oximetry Systolic And Diastolic Provider Name and Address Organization Details Last Updated DateTime 4 177.8 cm 16 /min 30.1 kg/m2 02550.2 6 g 96.9 [degF] 70 /min 94 % 94 % 106/71 mm[Hg] Cierra Freeman MA [facility] 4 14:12:51 Date Recorded Body height Body mass index (BMI) Body weight Oxygen saturation Oxygen saturation in Arterial blood by Pulse oximetry Heart rate Respiratory rate Body temperature Systolic And Diastolic Provider Name and Address Organization Details Last Updated DateTime 4 177.8 cm 32.2 kg/m2 673284. 84 g 97 % 97 % 73 /min 16 /min 97 [degF] 106/67 mm[Hg] Sabi Michaels LPN [facility] 4 15:12:07 Date Recorded Body height Respiratory rate Body mass index (BMI) Body weight Body temperature Heart rate Oxygen saturation Oxygen saturation in Arterial blood by Pulse oximetry Systolic And Diastolic Provider Name and Address Organization Details Last Updated DateTime 3 177.8 cm 16 /min 29.6 kg/m2 17732.0 3 g 97.1 [degF] 61 /min 97 % 97 % 116/71 mm[Hg] Cierra Freeman MA [facility] 3 14:37:56 Social History Question Answer Notes LastModified by Organizat ion Details LastModified Time Tobacco Smoking Status Current Every Day Smoker Theodora Carrillo MA [facility], [facility] 06/13/2018 12:03:57 Do You Have An Advance Directive? Yes Information not available 06/13/2018 Are You Blind Or Do You Have Difficulty Seeing? Yes Glasses Information not available 08/25/2024 What Is Your Level Of Caffeine Consumption? Heavy 3 To 4 Pots Of Coffee A Day Information not available 06/13/2018 How Much Tobacco Do You Chew? None Information not available 06/13/2018 In The 14 Days Before Symptom Onset, Have You Had Close Contact With A Laboratory-confir med COVID-19 While That Case Was Ill? No Information not available 12/20/2022 In The 14 Days Before Symptom Onset, Have You Had Close Contact With A Person Who Is Under Investigation For COVID-19 While That Person Was Ill? No Information not available 12/20/2022 Have You Been To An Area Known To Be High Risk For COVID-19? No Information not available 12/20/2022 Are You Deaf Or Do You Have Serious Difficulty Hearing? No Information not available 08/25/2024 What Type Of Diet Are You Following? REGULAR Information not available 06/13/2018 Which Illicit Or Recreational Drugs Have You Used? NO Information not available 06/13/2018 Education 12 Information no t available 06/13/2018 Are There Any Guns Present In Your Home? No Information not available 06/13/2018 Hard Of Hearing Or Deaf In One Or Both Ears? No Information not available 06/13/2018 Legally Blind In One Or Both Eyes? No Information no t available 06/13/2018 Marital Status Informatio n not available 06/13/2018 What Was The Date Of Your Most Recent Tobacco Screening? 09/23/2024 Information not available 09/23/2024 How Many Children Do You Have? 2 Information not available 08/25/2024 What Is Your Current Pack Years? 30ormorepatoni dunne Information not available 04/17/2024 Performs Monthly Self-breast Exam? No Information no t available 06/13/2018 What Is Your Relationship Status? Single Information not available 12/20/2022 Do You Use Your Seat Belt Or Car Seat Routinely? Yes Information not available 12/20/2022 Smoke Alarm In Home Yes Information not available 06/13/2018 Do You Have Smoke And Carbon Monoxide Detectors In Your Home? Yes Information not available 12/20/2022 At What Age Did You Start Smoking Tobacco? 10 Information not available 06/13/2018 Are You Passively Exposed To Smoke? Yes Information no t available 12/20/2022 How Much Tobacco Do You Smoke? 1 PPD Information not available 04/17/2024 General Stress Level Medium Information not available 06/13/2018 Do You Use Sunscreen Routinely? No Sometimes Information not available 12/20/2022 Has Tobacco Cessation Counseling Been Provided? Yes Information not available 12/20/2022 On What Date Was Tobacco Cessation Counseling Provided? 09/23/2024 Information not available 09/23/2024 How Many Years Have You Smoked Tobacco? 49 Information not available 04/17/2024 Sex: Male Functional Status Question Answer Note LastModified by Organizat ion Details LastModified Time Do you use any illicit or recreational drugs? No Information not available 08/25/2024 What is your level of alcohol consumption? Occasional Information not available 08/25/2024 Are you currently employed? No Information not available 12/20/2022 Are you able to care for yourself independently? Yes Information not available 08/25/2024 What is your occupation? retired/ disability Information not available 06/13/2018 What is your exercise level? Occasional Information not available 06/13/2018 Mental Status Question Answer Note LastModified by Organization D etails LastModified Time Do you feel stressed (tense, restless, nervous, or anxious, or unable to sleep at night)? [id number] Information not available 08/25/2024 Family History Relationship Description Onset Age of this Age Resolved Age Notes LastModified by Organization Details LastModified Time Maternal Grandfather Myocardial infarction erobbinsma Not available 08/2018 12:02:45 Father Family history of malignant neoplasm erobbinsma Not available 06/13 12:03:26 Mother Family history of malignant neoplasm erobbinsma Not available 06/13 12:03:26 Medical History Condition Response Coronary Artery Disease N Other N High Blood Pressure N Atrial Fibrillation N Thyroid Problems N Kidney or Bladder Problems N Blood Clots N COPD N Depression N GI Problems N Skin Problems N Anemia N Heart Attack ([place]) N Anxiety Disorder N Diabetes N Muscle, Joint, or Bone Problems N Seizures/Epilepsy N Acid Reflux (GERD) Y Cancer Y Stroke N Asthma N Allergies Y High Cholesterol N Hepatitis N Liver Disease N Headaches N Heart Failure N Osteoporosis N Immunizations Vaccine Type Date Status Note Provider Nam e and Address Organization Details Recorded Time COVID-19, mRNA, LNP-S, PF, 30 mcg/0.3 mL dose 1 completed JANA COOK NP Attn: [address] [place], [place], [address] [place] [address], [place] [facility] 12/20/2022 14:46:48 COVID-19, mRNA, LNP-S, PF, 30 mcg/0.3 mL dose 1 completed JANA COOK NP Attn: [address] [place], [place], [address] [place] [address], [place] [facility] 12/20/2022 14:46:48 COVID-19, mRNA, LNP-S, PF, 30 mcg/0.3 mL dose, arleen-sucrose 2 completed JANA COOK NP Attn: [address] [place], [place], [address] [place] [address], [place] [facility] 12/20/2022 14:46:48 COVID-19, mRNA, LNP-S, bivalent, PF, 30 mcg/0.3 mL dose 2 completed JANA COOK NP Attn: [address] [place], [place], [address] [place] [address], [place] [facility] 12/20/2022 14:46:48 Influenza, split virus, quadrivalent, preservative 9 completed Not Available [facility] 06/28/2019 02:37:00 Influenza, split virus, quadrivalent, preservative 3 completed Sabi Michaels LPN null, [place] - [facility] 04/23/2023 14:58:30 Pneumococcal conjugate PCV20, polysaccharide ZAH370 conjugate, adjuvant, PF 5 completed JANA COOK NP Attn: [address] [facility], [place], [address], [facility] [place] 09/29/2024 13:47:28 Past Encounters Encounter ID Performer Location Encounter Start Date Encounter Closed Date Diagnosis/Indication Diagnosis SNOMED-CT Code Diagnosis ICD10 Code Diagnosis IMO Codes Diagnosis Note [id number] MD Sonam Cloudn [address] [facility] [place] [address] 06/13/2018 11:50:36 06/17/2018 09:10:11 Vertigo 177753591 R42 Needs infl uenza immunization 633204525 Z23 [id number] MD Luisana Cloud [address] [facility] [place] [address] 06/28/2018 15:27:14 07/02/2018 12:34:10 Fracture of multiple bones of face 906463125 S02.92XD [id number] MD Sonam Cloudn [address] [facility] [place] [address] 07/26/2018 15:04:34 07/29/2018 10:43:37 Smoker 44509587 F17.200 Fracture o f multiple bones of face 317653824 S02.92XD Pt was referred to Dr. Ryan saavedra, but he has not yet seen this specialist . [id number] Reno Bajwa MD [facility] [address] [place] [address] 12/20/2022 14:03:11 12/21/2022 10:35:20 Adult health examination 592740154 Z00.00 - Discussed with patient findings, diagnoses, and prognosis. - Discussed plan of care including treatment options, risks, and benefits with patients. Patient expressed understand ing.- The following interventi ons were recommende d: heart healthy low-fat, low-sodium diet, ideal body weight, regular exercise, medication s compliance , and medical follow-up as noted. Obesity 169672428 E66.9 advised low fat, low cholestero l, low carb diet, regular exercise and weight reduction. Hyperlipid emia screening 666933605 Z13.220 Patient ne w to provider [id number] 20933 Z76.89 - Patient here to establish care Diabetes rick man screening 786206624 Z13.1 Gastroesop hageal reflux disease 574691653 K21.9 - discussed the follow non pharmacolo gical ways the patient can help manage her reflux: -Avoid lying flat 3 to 4 hours after eating or drinking. - Avoid tight clothing around the waist. - Decrease dietary fat intake. - Avoid acidic foods (citrus and tomato-bas ed products), alcohol, caffeinate d beverages, chocolate, onions, garlic, salt, and peppermint oil. - Avoid large meals. - Avoid drinking coffee, or carbonated beverages. - Weight loss can help with symptoms, try to diet and exercise.- Stop smoking. History of primary malignant neoplasm of lung 473955019 Z85.118 Screening for malignant neoplasm of prostate 942175512 Z12.5 Screening for malignant neoplasm of colon 456738077 Z12.11 [id number] Reno Bajwa MD [facility] [address] [place] [address] 04/23/2023 14:30:44 04/24/2023 12:44:46 Obesity 572535619 E66.9 advised low fat, low cholestero l, low carb diet, regular exercise and weight reduction. Gastroesop hageal reflux disease 423489824 K21.9 - discussed the follow non pharmacolo gical ways the patient can help manage her reflux: -Avoid lying flat 3 to 4 hours after eating or drinking. - Avoid tight clothing around the waist. - Decrease dietary fat intake. - Avoid acidic foods (citrus and tomato-bas ed products), alcohol, caffeinate d beverages, chocolate, onions, garlic, salt, and peppermint oil. - Avoid large meals. - Avoid drinking coffee, or carbonated beverages. - Weight loss can help with symptoms, try to diet and exercise.- Stop smoking. Administra tion of influenza vaccine 06354211 Z23 - recommende d annual influenza vaccinatio n [id number] JANA COKO NP [facility] [address] [place] [address] 10/23/2023 14:00:50 10/24/2023 15:19:58 Gastroesophageal reflux disease 249038176 K21.9 - discussed the follow non pharmacolo gical ways the patient can help manage her reflux: -Avoid lying flat 3 to 4 hours after eating or drinking. - Avoid tight clothing around the waist. - Decrease dietary fat intake. - Avoid acidic foods (citrus and tomato-bas ed products), alcohol, caffeinate d beverages, chocolate, onions, garlic, salt, and peppermint oil. - Avoid large meals. - Avoid drinking coffee, or carbonated beverages. - Weight loss can help with symptoms, try to diet and exercise.- Stop smoking. Obesity 303730420 E66.9 advised low fat, low cholestero l, low carb diet, regular exercise and weight reduction. Pain of bi lateral knee regions 6699730607 95186 M25.561 M25.562 - Educated on RICE method and OTC treatments . - Patient to RTC if condition worsens or does not improve. Tobacco de pendence syndrome 67677195 F17.200 - Patient is a current cigarette smoker, states he smokes 1/2pk per day and currently has no desire to quit.- Patient advised in the derogatory effects of smoking- Counseling for smoking cessation completed Bilateral medial epicondylitis of elbows 6460335266 0840863 M77.01 M77.02 - Dwp elbow pain likely due to playing video games all day. Patient advised rest and put video games on hold until the pain subsides. Ice the affected area for 15 to 20 minutes at a time, three times per day during the next few days. [id number] Reno Bajwa MD [facility] [address] [place] [address] 04/17/2024 14:48:53 04/24/2024 10:15:08 Gastroesophageal reflux disease 458937848 K21.9 - discussed the follow non pharmacolo gical ways the patient can help manage her reflux: -Avoid lying flat 3 to 4 hours after eating or drinking. - Avoid tight clothing around the waist. - Decrease dietary fat intake. - Avoid acidic foods (citrus and tomato-bas ed products), alcohol, caffeinate d beverages, chocolate, onions, garlic, salt, and peppermint oil. - Avoid large meals. - Avoid drinking coffee, or carbonated beverages. - Weight loss can help with symptoms, try to diet and exercise.- Stop smoking. Tobacco de pendence syndrome 79925823 F17.200 - Patient is a current cigarette smoker, states he smokes 3/4 pk per day and currently has no desire to quit.- Patient advised in the derogatory effects of smoking- Counseling for smoking cessation completed Bilateral medial epicondylitis of elbows 1065985019 7698059 M77.01 M77.02 - Dwp elbow pain likely due to playing video games all day. Patient advised rest and put video games on hold until the pain subsides. Ice the affected area for 15 to 20 minutes at a time, three times per day during the next few days. Obesity 659277995 E66.9 advised low fat, low cholestero l, low carb diet, regular exercise and weight reduction. [id number] Reno Bajwa MD [facility] [address] [place] [address] 08/25/2024 16:22:14 08/27/2024 16:59:48 Gastroesophageal reflux disease 361673724 K21.9 - discussed the follow non pharmacolo gical ways the patient can help manage her reflux: -Avoid lying flat 3 to 4 hours after eating or drinking. - Avoid tight clothing around the waist. - Decrease dietary fat intake. - Avoid acidic foods (citrus and tomato-bas ed products), alcohol, caffeinate d beverages, chocolate, onions, garlic, salt, and peppermint oil. - Avoid large meals. - Avoid drinking coffee, or carbonated beverages. - Weight loss can help with symptoms, try to diet and exercise.- Stop smoking. Tobacco de pendence syndrome 04661623 F17.200 - Patient is a current cigarette smoker, states he smokes 3/4 pk per day and currently has no desire to quit.- Patient advised in the derogatory effects of smoking- Counseling for smoking cessation completed Seasonal a llergic rhinitis 193049562 J30.2 Avoidance/ eliminatio n of offending allergens (e.g., frequent vacuuming, dusting, remove feather pillows from bedroom, change air conditione r filter frequently , removal of house plants, pet control, remove carpet, stuffed animals) Antihistam chacorta as needed (e.g., Claritain, Zyrtec, Mireille and Benadryl) Screening for malignant neoplasm of colon 291227675 Z12.11 Renewal of prescription 846081597 Z76.0 [id number] Reno Bajwa MD [facility] [address] [place] [address] 09/23/2024 15:46:42 10/02/2024 15:20:33 Administration of pneumococcal vaccine 99682966 Z23 - recommende d annual pneumococc al vaccinatio n Obesity 491615933 E66.9 advised low fat, low cholestero l, low carb diet, regular exercise and weight reduction. Tobacco de pendence syndrome 41843212 F17.200 - Patient is a current cigarette smoker, states he smokes 3/4 pk per day and currently has no desire to quit.- Patient advised in the derogatory effects of smoking- Counseling for smoking cessation completed Seasonal a llergic rhinitis 506661207 J30.2 Avoidance/ eliminatio n of offending allergens (e.g., frequent vacuuming, dusting, remove feather pillows from bedroom, change air conditione r filter frequently , removal of house plants, pet control, remove carpet, stuffed animals) Antihistam chacorta as needed (e.g., Claritain, Zyrtec, Mireille and Benadryl) Health Concerns Section Related Observation LastModified by Organization Detai ls LastModified Time None Recorded Concern Status LastModified by Organization Details LastModified Time None Recorded Advance Directives Directive Y: Payers Insurance Date Sequence Insurance Name Policy Number Policy Bell Covered Member ID Bell Member ID Guarantor Name 08/20/2024 2 [facility] (MEDICARE REPLACEMENT/A DVANTAGE - PPO) [id number] Alfredo Ott [id number] Alfredo Ott 08/20/2024 2 [place] Alfredo Ott [id number] Alfredo Ott 11/14/2024 2 [place] Alfredo Ott [id number] Alfredo Ott 08/25/2024 [place] - [facility] - [facility]HC Alfredo Ott [id number] Alfredo Ott 08/20/2024 [place] [facility] Alfreod Ott [id number] Alfredo Ott 11/14/2024 1 [facility] (MEDICARE REPLACEMENT/A DVANTAGE - HMO) [id number] Alfredo Ott [id number] Alfredo Ott Notes Date Note Type Note Provider Name and Address Organization Details Recorded Time 04/23/2023 text/html Reflux/GERDRepor chantale by PatientHPIFor symptoms, patient reportsasymptomatic. For alleviating factors, patient reportsotc medication.ROS as noted in the HPI Mr. Ott presented in office today for f/u appointment. JANA COOK NP Attn: Accounting,[address] [place], [address], [facility] [place] 04/23/2023 14:54:41 10/23/2023 text/html KneeReported by PatientHPIFor location, patient reportsbilateral. For quality, patient reportsaching. For severity, patient reportsmild. For duration, patient reports3-4 months. For associated symptoms, patient reportsno weakness,no numbness,no tingling,no swelling,no redness, andno warmth. Elbow/ForearmReported by PatientHPIFor location, patient reportsbilateralandante rior. For quality, patient reportsstabbingandsharp . For severity, patient reportsmoderate. For duration, patient reports3-4 months. For context, patient reportsoveruse (playing video games all day). For aggravating factors, patient reportsrom. For associated symptoms, patient reportsno weakness,no numbness,no tingling,no swelling, andno redness.ROS as noted in the HPI Mr. Wick presented in office today for follow up appointment. The patient complained of bilateral anterior elbow and bilateral knee pain. JANA COOK NP Attn: Accounting,[address] [place], [address], [facility] [place] 10/23/2023 14:56:21 04/17/2024 text/html Reflux/GERDRepor chantale by PatientHPIFor quality, patient reportsburning. For severity, patient reportsmoderatebut reportswaking up at night. For context, patient reportsrelated to any mealandrelated to spicy foods. For aggravating factors, patient reportslying down,worsened by food, andcaffeine intake. For associated symptoms, patient reportsheartburn. For symptoms, patient reportsheartburn. For duration, patient reportspresent 1-4 years. For onset/timing, patient reportsstill present.ROS as noted in the HPI Mr. Plaza presents in office today for follow up appointment. JANA COOK NP Attn: Accounting,[address] [facility], [place], [address], [facility] 04/21/2024 08:35:19 08/25/2024 text/html Reflux/GERDRepor chantale by PatientHPIFor quality, patient reportsburning. For severity, patient reportsmoderatebut reportswaking up at night. For context, patient reportsrelated to any meal. For symptoms, patient reportsheartburn. For alleviating factors, patient reportsprotein pump inhibitors.ROS as noted in the HPI Mr. Ott presents for follow up appointment. JANA COOK NP Attn: Accounting,[address] [facility], [place], [address], [place] 08/26/2024 10:05:18 09/23/2024 text/html ROS as noted in the HPI Mr. Ott is here for a follow-up, reporting no new symptoms or concerns. No changes in health since the last visit. JANA COOK NP Attn: Accounting,[address] [facility], [place], [address], [place] [facility] 09/29/2024 13:50:55
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
[2025-04-20 20:25] LABS: Add Urine Microscopic? NO; Appearance Urine Clear (Clear); Glucose Urine UA Negative (Negative); Leukocyte Esterase Ur Negative LEU/UL (Negative); Nitrate Urine Negative (Negative); Specific Grav Ur > 1.045 (1.001-1.035)
[2025-04-20 20:57] LABS: Cannabinoid Screen Urine Negative (Negative)
--- NOTE | 2025-04-20 21:54 | WPCEDHO ---
ED Hand Off Checklist All vitals saved:YES IV Site documented:YES All med administrations documented:YES Triage Note Triage Note Patient coming from bus station. 04/20/25 19:00 Patient was released from [facility] around 16:00 and left at bus station bench. Patient unable to ambulate or get onto bus. EMS was called by a bystander. Patient was found laying on the bench, blood sugar 38. EMS gave oral glucagon, BG 95. EMS placed a 20 R AC. Patient has previous stroke 6 months ago with previous left sided deficit, flaccid left arm and leg. Allergies Penicillins Allergy (Mild, Verified 05/24/18 17:10) HIVES Administered/Completed Medications Discontinued Medications Aspirin (Aspirin 81 Mg Chewable Tablet) 162 mg PO ONCE STA Stop: 04/20/25 19:20 Last Admin: 04/20/25 19:45 Dose: 162 mg Documented By: AMANDA Clopidogrel Bisulfate (Clopidogrel Bisulfate 300 Mg Tablet) 300 mg PO ONCE ONE Stop: 04/20/25 19:20 Last Admin: 04/20/25 19:46 Dose: 300 mg Documented By: AMANDA Sodium Chloride (Normal Saline Iv) 1,000 mls @ 999 mls/hr IV CONT .Q1H1M STA Stop: 04/20/25 20:02 Last Infusion: 04/20/25 20:48 Dose: Infused Documented By: Admin: 04/20/25 19:46 Dose: 999 mls/hr Documented By: AMANDA Interventions/Assessments IV / Saline Lock, Insert Start: 04/20/25 18:58 Freq: Status: Active Protocol: Document 04/20/25 19:46 AMANDA (Rec: 04/20/25 19:46 [facility] [id number]) IV Assessment Peripheral Access Right Antecubital IV Catheter Access Initiated Before Arrival Catheter Gauge 20 IV Site Assessment WNL IV Care and WNL Maintenance Last Vital Signs Temperature 98.2 F 04/20/25 21:21 Pulse Rate 74 04/20/25 21:47 Respiratory Rate 24 H 04/20/25 21:47 Pulse Oximetry 100 04/20/25 20:51 Blood Pressure 122/66 04/20/25 21:47 Blood Pressure Mean 83 04/20/25 21:47 Last Result - Abnormals Only RBC 4.34 M/mm3 (4.6-6.20) L 04/20/25 19:09 Hgb 13.6 g/dL (14.0-18.0) L 04/20/25 19:09 Hct 39.8 % (42.0-52.0) L 04/20/25 19:09 Neut % (Auto) 76.3 % (45.5-73.1) H 04/20/25 19:09 Lymph % (Auto) 14.0 % (18.3-44.2) L 04/20/25 19:09 Sodium 135 mmol/L (137-145) L 04/20/25 19:09 Glucose 131 mg/dL (65-110) H 04/20/25 19:09 POC Capillary Glucose 110 mg/dl (65-105) H 04/20/25 21:23 TSH 4.760 uIU/mL (0.465-4.680) H 04/20/25 19:09 Ur Specific [place] > 1.045 (1.001-1.035) H 04/20/25 19:50 Urine Ketones Trace mg/dL (Negative) H 04/20/25 19:50 Salicylates < 1.0 mg/dL (2-20) L 04/20/25 19:09 Acetaminophen < 10 ug/mL (10-30) L 04/20/25 19:09 Most Recent Suicide Severity Rating Suicide Severity Rating NO RISK INDICATED 04/20/25 19:00
--- NOTE | 2025-04-20 22:32 | ADMGEN ---
This patient, Alfredo Ott, was admitted to Medical Room 243-. Patient/family oriented to hospital policies and general routines including ID bracelet, bed and alarms, visiting hours, pain management, procedures, bathroom and other care routines, personal items, smoking policy, room service/diet, and visiting hours. Information on how to activate the Rapid Response Team has been discussed. Patient/Family are encouraged to report perceived risks to care and to ask questions if they do not understand what they are told or what they should do.
--- NOTE | 2025-04-20 23:06 | PC.NURSE ---
Patient states he is able to stand/pivot to a wheelchair, but does not currently have a wheelchair available to him and does not have the financial resources available to acquire one. Patient states he can walk with help, but his left leg drags. Patient states that he has two loose teeth. Patient states that he would like to see a heart doctor to see if there are any holes in his heart as identified at [facility]. Patient states that he takes Advil for pain normally, but states his pain in his left leg/foot is currently at 10/10. Provider notified.
[2025-04-20] MEDS: KETOROLAC 15 MG/ML VIAL (*BKC) IV PUSH (23:41)
[2025-04-20 23:53] LABS: Free T4 Free Thyroxine 1.29 ng/dL (0.78-2.19)
[2025-04-21] VITALS (8 sets, daily range): BP systolic 96–106; BP diastolic 48–52; PULSE 63–87; RESP 19–20; TEMP 36.2–36.6; O2SAT 96–99
[2025-04-21 05:28] LABS: Cholesterol 129 mg/dL (0-200); HDL Direct 34 mg/dL; Triglycerides 81 mg/dL (<150)
[2025-04-21 08:23] LABS: Hemoglobin A1C 5.1 % (<5.7)
[2025-04-21] MEDS: KETOROLAC 15 MG/ML VIAL (*BKC) IV PUSH (08:54)
[2025-04-21] MEDS: CLOPIDOGREL BISULFATE 75 MG TABLET PO (08:55)
--- NOTE | 2025-04-21 12:21 | PC.NURSE ---
RN received phone call from ultrasound that stated patient made very inappropriate remarks and gestures to women staff while he was downstairs getting tests done. RN witnessed inappropriate behavior when patient returned to floor. Patient asked two of the trasnporters to bend over for him. Primary RN will make lithopone charger aware of situation.
--- NOTE | 2025-04-21 14:14 | P.HP_ITS ---
H&P: HPI History of Present Illness Date/Time: 04/21/25 14:14 Chief Complaint: POSSIBLE CVA; NEW DROOP AND SLURRED SPEECH. Narrative: ER-HPI Narrative: this is a 60-year-old male with history of CVAs who presents to the ED for stroke symptoms. Per EMS, patient was experiencing severe weakness when he was released from long term at about 4:00 p.m. and was having stroke-like symptoms so a bystander called EMS. On their arrival, he did have left-sided droop and a glucose of 38. He was given amp of D50 but continued to have the drip. Patient states that he felt mucus since he was released from long term. He states that about 6 months ago he had 5 strokes in a row. He states that he was stopped on his blood thinner previously. Denies fevers, chills, chest pain, shortness of breath. patient with c/o hypoglycemia, left sided facial droops, patient blood sugars were corrected in the ER, most likely due to poor PO intake, as patient is not taking any antidiabetes medications, patient does complaints of swelling left lower extremity, left hip and shoulder, patient had fall prior to coming to the ER. patient recently had 5 strokes to further evaluate, CT large right MCA distribution infarction probably representing early chronic stage. No hemorrhage or acute ischemic event identified. will do MRI of brain, will consult neurologist for further recommendation, patient is homeless and has not been taking his home medication including Eliquis. patient left lower extremity is quite swollen will do Venous Doppler, will do x-ray of the left hip, pelvics and shoulder. [facility] Family History Family History Father Bone cancer Social History Social History Smoking status: Current every day smoker Tobacco type: cigarettes and e-cigarettes/vaping Alcohol intake: current Substance use: never Substance use type: does not use Lack of Transportation: YES Lack of Food: Never True Current Housing: I Do Not Have Housing Concerned About Future Housing: YES Difficulty Paying Gas/Electric Bills: No Difficulty Paying for Meds: YES Currently Unemployed: No Education: High School Diploma/GED Difficulty w/ Childcare or Family Care: No Spiritual care concerns: No Meds Home Medications and Allergies Home Medications ?Medication ?Instructions ?Recorded ?Confirmed ?Type apixaban 5 mg tablet (Eliquis) mg 04/20/25 History atorvastatin 40 mg tablet mg 04/20/25 History baclofen 10 mg tablet mg 04/20/25 History fluoxetine 20 mg capsule mg 04/20/25 History gabapentin 300 mg capsule mg 04/20/25 History ibuprofen 200 mg tablet 400 mg PO Q4H PRN pain 04/2004/20/25 History sertraline 25 mg tablet mg 04/20/25 History Allergies Allergy/AdvReac Type Severity Reaction Status Date / Time Penicillins Allergy Mild HIVES Verified 04/20/25 22:45 Vital Signs Vital Signs - 24 hr 04/20/25 19:20 04/20/25 19:24 04/20/25 19:30 Temperature Pulse Rate 88 82 81 Respiratory Rate 22 H 20 19 Blood Pressure 126/83 Pulse Oximetry 95 100 Oxygen Delivery 04/20/25 19:45 04/20/25 19:56 04/20/25 20:02 Temperature Pulse Rate 78 75 Respiratory Rate 19 22 H Blood Pressure Pulse Oximetry 100 99 99 Oxygen Delivery 04/20/25 20:03 04/20/25 20:30 04/20/25 20:51 Temperature Pulse Rate 75 71 82 Respiratory Rate 20 26 H 22 H Blood Pressure 122/59 L 108/49 L Pulse Oximetry 100 100 Oxygen Delivery 04/20/25 21:00 04/20/25 21:02 04/20/25 21:15 Temperature Pulse Rate 73 70 70 Respiratory Rate 19 12 16 Blood Pressure 124/77 Pulse Oximetry Oxygen Delivery 04/20/25 21:18 04/20/25 21:21 04/20/25 21:30 Temperature 36.8 C Pulse Rate 77 73 Respiratory Rate 24 H 22 H Blood Pressure 122/92 H Pulse Oximetry Oxygen Delivery 04/20/25 21:45 04/20/25 21:47 04/20/25 22:47 Temperature 36.4 C L Pulse Rate 73 74 85 Respiratory Rate 23 H 24 H 20 Blood Pressure 122/66 118/67 Pulse Oximetry 90 Oxygen Delivery 04/20/25 22:50 04/21/25 00:00 04/21/25 04:00 Temperature Pulse Rate 83 87 Respiratory Rate Blood Pressure Pulse Oximetry Oxygen Delivery Room Air 04/21/25 05:35 04/21/25 08:00 04/21/25 08:16 Temperature 36.2 C L Pulse Rate 65 73 Respiratory Rate 20 Blood Pressure 96/48 L Pulse Oximetry 97 Oxygen Delivery Room Air Exam Narrative: Patient is comfortable, NAD HEENT: eyes are clear and none icteric LUNGS:CTA HEART: RR S1S2 ABD: BS+, Soft and nontender Lower extremities: left lower extremity edema. good skin color, and warm. tender. SKIN: nonjaundiced Neuro: grossly intact. H&P: Results Labs Labs: Short CBC 04/20/25 Range/Units 19:09 WBC 6.6 (4.5-10.0) K/mm3 Hgb 13.6 L (14.0-18.0) g/dL Hct 39.8 L (42.0-52.0) % Plt Count 150 (150-375) k/mm3 BMP 04/20/25 04/20/25 19:09 20:10 Sodium 135 L Potassium 3.7 Chloride 103 Carbon Dioxide 27 BUN 10 Creatinine 0.70 0.80 Glucose 131 H Calcium 8.9 Cardiac Enzymes 04/20/25 Range/Units 19:09 Troponin I < 0.012 (0.000-0.034) ng/mL Liver Function 04/20/25 Range/Units 19:09 Total Bilirubin 0.6 (0.2-1.3) mg/dL AST 21 (17-59) U/L ALT 13 (6-50) U/L Alkaline Phosphatase 88 (38-126) U/L Albumin 4.0 (3.5-5.1) g/dL Urine 04/20/25 Range/Units 19:50 Urine Color Yellow (Yellow) Urine Appearance Clear (Clear) Urine pH 5.5 (5.0-9.0) Ur Specific [place] > 1.045 H (1.001-1.035) Urine Protein Negative (Negative) mg/dL Urine Glucose (UA) Negative (Negative) mg/dL Assessment and Plan Assessment and plan (1) Ischemic stroke: Code(s): I63.9 - Cerebral infarction, unspecified Status: Acute (2) Hypoglycemia: Code(s): E16.2 - Hypoglycemia, unspecified Status: Acute (3) Left leg pain: Code(s): M79.605 - Pain in left leg Status: Acute (4) Left shoulder pain: Code(s): M25.512 - Pain in left shoulder Status: Acute Plan patient with c/o hypoglycemia, left sided facial droops, patient blood sugars were corrected in the ER, most likely due to poor PO intake, as patient is not taking any antidiabetes medications, patient does complaints of swelling left lower extremity, left hip and shoulder, patient had fall prior to coming to the ER. patient recently had 5 strokes to further evaluate, CT large right MCA distribution infarction probably representing early chronic stage. No hemorrhage or acute ischemic event identified. will do MRI of brain, will consult neurologist for further recommendation, patient is homeless and has not been taking his home medication including Eliquis. patient left lower extremity is quite swollen will do Venous Doppler, will do x-ray of the left hip, pelvics and shoulder. Patient is seen by Dr. Perez and agrees with plan.
[2025-04-21 14:23] LABS: Hematocrit 36.7 % (42.0-52.0); Hemoglobin 12.3 g/dL (14.0-18.0); Mean Corpuscular HGB Conc 33.5 g/dl (32-36); Mean Corpuscular Hemoglobin 31.0 pg (26-34); Mean Corpuscular Volume 92.4 fl (80-100); Platelet Count Result 156 k/mm3 (150-375); Red Blood Count 3.97 M/mm3 (4.6-6.20); White Blood Count 4.9 K/mm3 (4.5-10.0)
[2025-04-21 14:25] LABS: Alanine Aminotransferase 14 U/L (6-50); Albumin Level 3.5 g/dL (3.5-5.1); Alkaline Phosphatase 76 U/L (38-126); Anion Gap 6 mmol/L (4-12); Aspartate Amino Transferase 26 U/L (17-59); Bilirubin,Total 0.5 mg/dL (0.2-1.3); Blood Urea Nitrogen 10 mg/dL (9-20); Calcium 8.7 mg/dL (8.4-10.2); Carbon Dioxide 29 mmol/L (22-30); Chloride 103 mmol/L (98-107); Estimated CRCL calculation 80 ml/min; Estimated Glomerular Filt Rate > 60; Glucose 113 mg/dL (65-110); Magnesium 1.9 mg/dL (1.6-2.3); Potassium 3.7 mmol/L (3.4-5.0); Sodium 138 mmol/L (137-145); Total Protein 6.2 g/dL (6.3-8.2)
[2025-04-21] MEDS: ASPIRIN 81 MG ENTERIC TABLET PO (14:43)
[2025-04-21] MEDS: ACETAMINOPHEN 325 MG TABLET 650 MG PO ×2 (14:43→19:44)
[2025-04-21] MEDS: BACLOFEN 10 MG TABLET PO ×2 (14:44→21:03)
[2025-04-21] MEDS: ENOXAPARIN 120 MG/0.8 ML SYRINGE 105 MG SUB-Q (14:44)
[2025-04-21] MEDS: GABAPENTIN 300 MG CAPSULE PO ×4 (14:45→21:03)
--- NOTE | 2025-04-21 14:58 | PC.NURSE ---
Patient refusing medications to help with large amount of stool.
--- NOTE | 2025-04-21 14:58 | PCOTNOTE ---
Attempted to see for OT eval. Patient getting cleaned up and then getting an echo. Will continue to attempt.
--- NOTE | 2025-04-21 15:01 | WPDNEURCNPN ---
Consult date: 04/21/25 HPI: Alfredo Ott is a 60 year old male Admitted to the hospital through the emergency room with history of cerebrovascular accident in the past and with the information that he was experiencing severe weakness when he was released from [facility] about 4:00 p.m.. A bystander called the EMS who when arrived found him having left-sided droop and a blood glucose of only 38. He was given 1 amp of D50 and continue to have the drip as well. Patient reported that he has had his stroke x5 about 6 months ago and he was taken off the blood thinning medications. His medications included 1. apixaban 5mg daily, 2. Atorvastatin 40mg daily 3. Baclofen 10mg daily 4. Fluoxetine 20mg daily 5. Gabapentin 300mg daily 6. Sertraline 25mg daily and 7. Ibuprofen on p.r.n. basis. Patient has ongoing history of currently everyday smoking, currently alcohol consumption, and on initial exam in the emergency room he was noted to have neurological deficit though he was able to follow the verbal commands appropriately. His vital signs were abnormal with respiratory rate of 22, CBC was normal, and mast scan was normal as well his urine specific gravity was more than 1.045 with trace ketones and the drug screen was negative. The CT scan of the head documented large subacute infarct involving the right middle cerebral artery. Head and neck CTA documented moderate stenosis of M2 and M3 segment without aneurysm and patent intracranial internal carotid artery anterior cerebral artery and left middle cerebral artery. Brain MRI documented large right middle cerebral artery distribution infarction with early chronic stage without any hemorrhage or without any new acute infarct. Incidental hip pelvic x-rays were ordered but there was no fracture or subluxation or dislocation. Shoulder x-rays were also negative though the study was limited. Bilateral lower extremity venous duplex study obtained which documented positive for DVT common femoral vein through all calf veins. Patient's home medication as mentioned before included apixaban, atorvastatin, baclofen, duloxetine, gabapentin, sertraline, patient did complain of swelling on the left lower extremity in the emergency room and mentioned that he was not taking any medications. And as mentioned before the CT scan was negative for the intracranial bleed and has not been taking his home medications particularly Eliquis, most likely will be started on the anticoagulation therapy. Review of Systems Review of Systems: All systems reviewed & are unremarkable except as noted in HPI and below PMFSH Family History Family History Father Bone cancer Social History Social History Smoking status: Current every day smoker Tobacco type: cigarettes and e-cigarettes/vaping Alcohol intake: current Substance use: never Substance use type: does not use Lack of Transportation: YES Lack of Food: Never True Current Housing: I Do Not Have Housing Concerned About Future Housing: YES Difficulty Paying Gas/Electric Bills: No Difficulty Paying for Meds: YES Currently Unemployed: No Education: High School Diploma/GED Difficulty w/ Childcare or Family Care: No Spiritual care concerns: No Meds Home Medications and Allergies Home Medications ?Medication ?Instructions ?Recorded ?Confirmed ?Type apixaban 5 mg tablet (Eliquis) mg 04/20/25 History atorvastatin 40 mg tablet mg 04/20/25 History baclofen 10 mg tablet mg 04/20/25 History fluoxetine 20 mg capsule mg 04/20/25 History gabapentin 300 mg capsule mg 04/20/25 History ibuprofen 200 mg tablet 400 mg PO Q4H PRN pain 04/20/25 04/20/25 History sertraline 25 mg tablet mg 04/20/25 History Allergies Allergy/AdvReac Type Severity Reaction Status Date / Time Penicillins Allergy Mild HIVES Verified 04/20/25 22:45 Vital Signs Vital Signs - 24 hr 04/20/25 19:20 04/20/25 19:24 04/20/25 19:30 Temperature Pulse Rate 88 82 81 Respiratory Rate 22 H 20 19 Blood Pressure 126/83 Pulse Oximetry 95 100 Oxygen Delivery 04/20/25 19:45 04/20/25 19:56 04/20/25 20:02 Temperature Pulse Rate 78 75 Respiratory Rate 19 22 H Blood Pressure Pulse Oximetry 100 99 99 Oxygen Delivery 04/20/25 20:03 04/20/25 20:30 04/20/25 20:51 Temperature Pulse Rate 75 71 82 Respiratory Rate 20 26 H 22 H Blood Pressure 122/59 L 108/49 L Pulse Oximetry 100 100 Oxygen Delivery 04/20/25 21:00 04/20/25 21:02 04/20/25 21:15 Temperature Pulse Rate 73 70 70 Respiratory Rate 19 12 16 Blood Pressure 124/77 Pulse Oximetry Oxygen Delivery 04/20/25 21:18 04/20/25 21:21 04/20/25 21:30 Temperature 36.8 C Pulse Rate 77 73 Respiratory Rate 24 H 22 H Blood Pressure 122/92 H Pulse Oximetry Oxygen Delivery 04/20/25 21:45 04/20/25 21:47 04/20/25 22:47 Temperature 36.4 C L Pulse Rate 73 74 85 Respiratory Rate 23 H 24 H 20 Blood Pressure 122/66 118/67 Pulse Oximetry 90 Oxygen Delivery 04/20/25 22:50 04/21/25 00:00 04/21/25 04:00 Temperature Pulse Rate 83 87 Respiratory Rate Blood Pressure Pulse Oximetry Oxygen Delivery Room Air 04/21/25 05:35 04/21/25 08:00 04/21/25 08:16 Temperature 36.2 C L Pulse Rate 65 73 Respiratory Rate 20 Blood Pressure 96/48 L Pulse Oximetry 97 Oxygen Delivery Room Air Results Labs 04/21/25 14:04 04/21/25 14:04 Labs: Short CBC 04/20/25 04/21/25 Range/Units 19:09 14:04 WBC 6.6 4.9 (4.5-10.0) K/mm3 Hgb 13.6 L 12.3 L (14.0-18.0) g/dL Hct 39.8 L 36.7 L (42.0-52.0) % Plt Count 150 156 (150-375) k/mm3 BMP 04/20/25 04/20/25 04/21/25 19:09 20:10 14:04 Sodium 135 L 138 Potassium 3.7 3.7 Chloride 103 103 Carbon Dioxide 27 29 BUN 10 10 Creatinine 0.70 0.80 1.09 Glucose 131 H 113 H Calcium 8.9 8.7 Cardiac Enzymes 04/20/25 Range/Units 19:09 Troponin I < 0.012 (0.000-0.034) ng/mL Liver Function 04/20/25 04/21/25 Range/Units 19:09 14:04 Total Bilirubin 0.6 0.5 (0.2-1.3) mg/dL AST 21 26 (17-59) U/L ALT 13 14 (6-50) U/L Alkaline Phosphatase 88 76 (38-126) U/L Albumin 4.0 3.5 (3.5-5.1) g/dL Urine 04/20/25 Range/Units 19:50 Urine Color Yellow (Yellow) Urine Appearance Clear (Clear) Urine pH 5.5 (5.0-9.0) Ur Specific Binger > 1.045 H (1.001-1.035) Urine Protein Negative (Negative) mg/dL Urine Glucose (UA) Negative (Negative) mg/dL
--- NOTE | 2025-04-21 15:35 | PCCARD ---
Patient IV access not available for Bubbles study and contrast. Verbal permission given to charge nurse , Per: , to do echocardiogram 04/22/25 once new IV has been placed.
[2025-04-22] VITALS (12 sets, daily range): BP systolic 102–127; BP diastolic 56–71; PULSE 58–106; RESP 17–20; TEMP 36.2–36.7; O2SAT 95–99
--- NOTE | 2025-04-22 | ECHO_ITS ---
Patient Info Name: Alfredo Ott Age: 60 years : 1965 Gender: Male Ht: 70 in Wt: 232 lbs BSA: 2.31 m2 HR: 66 bpm BP: 103 / 56 mmHg Technical Quality: Fair Exam Date: 04/22/2025 9:20 AM Patient Status: I Admit Date: 04/20/2025 Exam Type: CA echo dop bubble study w con Complete two-dimentional, color flow and Doppler transthoracic echocardiogram is performed with agitated saline and with contrast to opacify the left ventricle and to improve the delineation of the left ventricle endocardial borders. Staff Referring Physician: Josselyn Santiago DO Dive Superintendent: Skip Easton III Attending Provider: Josselyn Santiago DO Contrast/Agitated Saline Contrast/Ag. Saline: Definity Amount: 2.00 ml Administered By: Skip Easton III Existing IV Access: Yes IV Access Condition: patent with no signs of infiltration Contrast/Ag. Saline: Agitated Saline Amount: 16.00 ml Existing IV Access: Yes IV Access Condition: patent with no signs of infiltration Summary 1. Poor Definity images. 2. Suboptimal study for accurate valve assessment. 3. There is normal biventricular size and systolic function. 4. No significant valve abnormalities in the available images. 5. Agitated saline study did not reveal any definitive right to left shunts. Left Ventricle The left ventricle is normal in size and systolic function. There is left ventricular concentric remodeling. The left ventricular ejection fraction is visually estimated to be 60-65%. Right Ventricle The right ventricle is normal in size and systolic function. Left Atria The left atrium is normal size. Right Atria The right atrium is normal size. Atrial Septum Agitated saline study did not reveal any definitive right to left shunts. Aortic Valve The aortic valve is not well visualized. There is no aortic stenosis. There is no aortic regurgitation. Pulmonic Valve The pulmonic valve is not well visualized. Mitral Valve The mitral valve is normal. There is trace mitral regurgitation. Tricuspid Valve The tricuspid valve is not well visualized. Pericardium/Pleural Pericardium is normal in appearance with no evidence for significant pericardial effusion. Inferior Vena Cava Inferior vena cava is not well visualized. Aorta The aortic root at the level of the sinus of Valsalva measures 3.2 cm in diameter. Left Ventricular Outflow Tract Name Value Normal LVOT 2D LVOT Diameter 2.3 cm LVOT Doppler LVOT Peak Velocity 105 cm/s LVOT Peak Gradient 4 mmHg LVOT Mean Gradient 2 mmHg LVOT VTI 22 cm LVOT VTI/AV VTI Ratio 0.9 LVOT Stroke Volume 95 ml LVOT CO 5.6 l/min LVOT CI 2.4 l/min/m2 Pulmonic Valve Name Value Normal PV Doppler PV Peak Velocity 91 cm/s PV Peak Gradient 3 mmHg PV Mean Gradient 2 mmHg Mitral Valve Name Value Normal MV Doppler MV Peak Gradient 3 mmHg MV Mean Gradient 1 mmHg MV Area (Cont Eq VTI) 3.9 cm2 MV Diastolic Function MV E Peak Velocity 68 cm/s MV A Peak Velocity 58 cm/s MV E/A 1.2 MV Decel Time (PW) 236 ms MV Annular TDI MV E/e' (Septal) 11.4 MV E/e' (Lateral) 7.7 MV E/e' (Average) 9.5 Tricuspid Valve Name Value Normal TV Annular TDI TV Lateral Amanda s' Velocity 14.0 cm/s >=9.5 Aortic Valve Name Value Normal AV Doppler AV Peak Velocity 109 cm/s AV Peak Gradient 5 mmHg AV Mean Gradient 3 mmHg AV VTI 26 cm AV Area (Cont Eq VTI) 3.7 cm2 >=3.0 AV Area (Cont Eq Efe) 4.2 cm2 AV DI (Efe) 0.97 AV Regurgitation 2D LVOT Area 4.3 cm2 Ventricles Name Value Normal LV Dimensions 2D/MM IVS Diastolic Thickness (2D) 1.2 cm 0.6-1.0 LVID Diastole (2D) 5.1 cm 4.2-5.8 LVIW Diastolic Thickness (2D) 1.2 cm 0.6-1.0 LVID Systole (2D) 3.6 cm 2.5-4.0 LVOT Diameter 2.3 cm LV Mass (2D Cubed) 229.93 g 88.00-224.00 LV Mass Index (2D Cubed) 99 g/m2 49-115 Relative Wall Thickness (2D) 0.45 <=0.42 LV Fractional Shortening/Ejection Fraction 2D/MM LV Fractional Shortening (2D) 29 % 25-43 LV EF (2D Teichholz) 56 % LV Diastolic Volume (4C MOD) 74 ml LV EF (4C MOD) 56 % LV Diastolic Volume (2C MOD) 115 ml LV EF (2C MOD) 78 % LV Diastolic Volume (BP MOD) 93 ml 62-150 LV Diastolic Volume Index (BP MOD) 40 ml/m2 34-74 LV Systolic Volume (BP MOD) 31 ml 21-61 LV Systolic Volume Index (BP MOD) 13 ml/m2 11-31 LV EF (BP MOD) 67 % 52-72 LV Diastolic Length (4C) 7.9 cm LV Systolic Length (4C) 5.9 cm LV Stroke Volume (4C MOD) 42 ml Atria Name Value Normal LA Dimensions LA Volume (4C A-L) 48 ml LA Volume (BP A-L) 52 ml RA Dimensions RA Systolic Major [place] Length (4C) 5.4 cm 2.1-2.7 RA Area (4C) 18.1 cm2 <=18.0 Report Signatures
[2025-04-22] MEDS: ENOXAPARIN 120 MG/0.8 ML SYRINGE 105 MG SUB-Q ×2 (01:00→13:41)
--- NOTE | 2025-04-22 04:19 | ECG_ITS ---
Test Date: 2025-04-22 04:31:51 Measurements Intervals [place] Rate: 62 P: 31 IN: 131 QRS: 31 QRSD: 98 T: 114 QT: 356 QTc: 363 Interpretive Statements SINUS RHYTHM NONSPECIFIC ST-T CHANGES Compared to ECG 04/20/2025 19:27:33 T-wave abnormality now present Possible ischemia now present Electronically Signed On 04-22-2025 13:16:43 [employer] by Acosta Pfeiffer M.D.
[2025-04-22 04:27] LABS: Hematocrit 36.1 % (42.0-52.0); Hemoglobin 12.1 g/dL (14.0-18.0); Mean Corpuscular HGB Conc 33.5 g/dl (32-36); Mean Corpuscular Hemoglobin 31.1 pg (26-34); Mean Corpuscular Volume 92.8 fl (80-100); Platelet Count Result 145 k/mm3 (150-375); Red Blood Count 3.89 M/mm3 (4.6-6.20); White Blood Count 4.5 K/mm3 (4.5-10.0)
[2025-04-22 04:38] LABS: Magnesium 2.1 mg/dL (1.6-2.3)
[2025-04-22] MEDS: NITROGLYCERIN SL 0.4 MG TABLET SUBLINGUAL ×3 (04:41→05:06)
--- NOTE | 2025-04-22 05:05 | PC.NURSE ---
Pt continues to have chest pain after receiving 3 doses of nitro. Rates pain 11 out of 1-10 Pt alert and oriented. and describes the pain in mid chest and stabbing. Rapid Response called
[2025-04-22 05:09] LABS: Troponin I < 0.012 ng/mL (0.000-0.034)
[2025-04-22] MEDS: BELLADONNA ALK/PHENOB ELIX 10 ML, MAG HYDROX/ALUMINUM HYD/SIMETH 30 ML, LIDOCAINE 2% VI... PO (05:58)
[2025-04-22] MEDS: BACLOFEN 10 MG TABLET PO ×3 (06:01→21:57)
[2025-04-22] MEDS: GABAPENTIN 300 MG CAPSULE PO ×4 (06:01→21:57)
[2025-04-22] MEDS: AZITHROMYCIN IV 500 MG in SODIUM CHLORIDE 0.9% IV 250 ML IVPB (06:51)
[2025-04-22 07:44] LABS: Troponin I < 0.012 ng/mL (0.000-0.034)
[2025-04-22] MEDS: cefTRIAXone 1 GM in SODIUM CHLORIDE 0.9% IV 50 ML 100 ML IVPB (08:18)
--- NOTE | 2025-04-22 08:38 | P.RRN_ITS ---
Critical Care Event Note Summary Code activated: No Narrative: Nursing staff were called into the room by the patient. He stated that he was having severe chest pain across his left chest and up into his neck and described it as burning and squeezing. He also reported is clear headache. Nursing staff felt that the patient's speech was more slurred than it had been earlier in the evening. Patient has had a recent CVA and is on therapeutic Lovenox for a lower extremity DVT. Is differential for patient's symptoms included cardiac ischemia, pulmonary embolism, or evaluation of ischemic CVA or intercranial bleed. The patient had a stat EKG performed which was reviewed head demonstrated nonspecific findings. Patient received 3 doses of sublingual nitroglycerin without change in his symptoms. Went down to evaluate patient but he had already left for CT of brain and CTA of the chest. Shortly after returning to the for the patient was still complaining of 11/10 chest and neck pain. However patient was sitting up in bed and in no apparent distress. He was not diaphoretic in was not short of breath. His vital signs were stable. The patient stated that he just knows that if we would give him a couple coffee his chest pain would go away. The patient stated that it did not really matter if he . But at the same time he would want everything done to keep living. He denies any suicidal ideation. He has not been having any cough or congestion. It was suspected the patient may be having some dyspepsia or GERD. GI cocktail was ordered. Stat labs including troponin, CBC and electrolyte panel were obtained. Troponin was negative. Will complete a set of 3 tr oponins. Will continue to monitor on telemetry. CT was personally reviewed interpreted with radiology interpretation pending demonstrated a left lower lobe pneumonia. No obvious large PE. The patient is already on therapeutic anticoagulation with Lovenox q.12 hours. Will start the patient on Rocephin and azithromycin for pneumonia and obtain blood cultures. Will check urine Legionella and pneumococcal antigen. Will order incentive spirometry. 30 minute spent in critical care activities. This case had a high probability of a clinically significant, sudden, or life threatening deterioration of this patient's condition which required my full and direct attention, intervention and personal management. Critical care time: 30 - 74 mins
[2025-04-22 08:52] LABS: Alanine Aminotransferase 13 U/L (6-50); Albumin Level 3.5 g/dL (3.5-5.1); Alkaline Phosphatase 86 U/L (38-126); Anion Gap 8 mmol/L (4-12); Aspartate Amino Transferase 26 U/L (17-59); Bilirubin,Total 0.4 mg/dL (0.2-1.3); Blood Urea Nitrogen 9 mg/dL (9-20); Calcium 9.0 mg/dL (8.4-10.2); Carbon Dioxide 24 mmol/L (22-30); Chloride 107 mmol/L (98-107); Estimated CRCL calculation 88 ml/min; Estimated Glomerular Filt Rate > 60; Glucose 103 mg/dL (65-110); Potassium 3.6 mmol/L (3.4-5.0); Sodium 139 mmol/L (137-145); Total Protein 6.1 g/dL (6.3-8.2)
--- NOTE | 2025-04-22 09:00 | PCPTNOTE ---
Attempted PT evaluation, pt can't stay awake to answer PLOF questions. Will follow.
[2025-04-22] MEDS: SERTRALINE HCL 25 MG TABLET PO (10:16)
[2025-04-22] MEDS: ATORVASTATIN 40 MG TABLET PO (10:17)
[2025-04-22] MEDS: metroNIDAZOLE 500 MG/ISO 100ML 500 MG/100 ML BAG 100 MG IVPB ×3 (10:17→21:57)
[2025-04-22] MEDS: ASPIRIN 81 MG ENTERIC TABLET PO (10:17)
[2025-04-22 10:19] LABS: Troponin I < 0.012 ng/mL (0.000-0.034)
[2025-04-22] MEDS: PERFLUTREN LIPID MICROSPHERES 1.5 ML VIAL DILUTED TO 10 ML TOTAL VOLUME IV PUSH (10:42)
--- NOTE | 2025-04-22 10:42 | IVDEFINITY ---
Prior to administration of IV Definity the patient was educated on the risks and benefits of the imaging enhancing agent including potential adverse side effects. The patient verbalized understanding. Allergies were verified. No exclusion criteria were identified and at least one of the following inclusion criteria were met: 1) physician request, 2) patient technically difficult to image (per the [place] [employer]ocardi[employer] guidelines of two or more segments not discernable within the apical view), or 3) questionable left ventricular function. ?
--- NOTE | 2025-04-22 12:41 | P.PNIM_ITS ---
Progress Note: A&P Assessment and Plan (1) Ischemic stroke: Code(s): I63.9 - Cerebral infarction, unspecified Status: Acute (2) Hypoglycemia: Code(s): E16.2 - Hypoglycemia, unspecified Status: Acute (3) Left leg pain: Code(s): M79.605 - Pain in left leg Status: Acute (4) Left shoulder pain: Code(s): M25.512 - Pain in left shoulder Status: Acute Plan patient with c/o hypoglycemia, left sided facial droops, patient blood sugars were corrected in the ER, most likely due to poor PO intake, as patient is not taking any antidiabetes medications, patient does complaints of swelling left lower extremity, left hip and shoulder, patient had fall prior to coming to the ER. patient recently had 5 strokes to further evaluate, CT large right MCA distribution infarction probably representing early chronic stage. No hemorrhage or acute ischemic event identified. will do MRI of brain, patient was seen by the neurologist, patient is homeless and has not been taking his home medication including Eliquis. 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 will have PT/OT work with the patient. Subjective Date/time seen: 04/22/25 12:41 Interval history: patient with c/o hypoglycemia, left sided facial droops, patient blood sugars were corrected in the ER, most likely due to poor PO intake, as patient is not taking any antidiabetes medications, patient does complaints of swelling left lower extremity, left hip and shoulder, patient had fall prior to coming to the ER. patient recently had 5 strokes to further evaluate, CT large right MCA distribution infarction probably representing early chronic stage. No hemorrhage or acute ischemic event identified. will do MRI of brain, patient was seen by the neurologist, patient is homeless and has not been taking his home medication including Eliquis. 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 will have PT/OT work with the patient. Exam Narrative: Patient is comfortable, NAD HEENT: eyes are clear and none icteric LUNGS:CTA HEART: RR S1S2 ABD: BS+, Soft and nontender Lower extremities: left lower extremity edema. good skin color, and warm. tender. SKIN: nonjaundiced Neuro: grossly intact. Objective Data Vital Signs Vital Signs: Vital Signs - 24 hr 04/21/25 14:00 04/21/25 16:00 04/21/25 19:54 Temperature 36.6 C 36.6 C Pulse Rate 72 65 63 Respiratory Rate 19 20 Blood Pressure 104/52 L 106/52 L Pulse Oximetry 96 99 Oxygen Delivery 04/21/25 20:00 04/21/25 20:00 04/22/25 00:00 Temperature Pulse Rate 66 58 L Respiratory Rate Blood Pressure Pulse Oximetry Oxygen Delivery Room Air 04/22/25 04:00 04/22/25 04:03 04/22/25 05:08 Temperature 36.7 C Pulse Rate 63 78 71 Respiratory Rate 20 17 Blood Pressure 102/57 L 103/56 L Pulse Oximetry 95 95 Oxygen Delivery Room Air 04/22/25 05:09 04/22/25 07:58 04/22/25 08:00 Temperature Pulse Rate 66 65 Respiratory Rate 17 Blood Pressure 103/56 L Pulse Oximetry 96 96 Oxygen Delivery Room Air 04/22/25 10:15 Temperature Pulse Rate Respiratory Rate Blood Pressure Pulse Oximetry Oxygen Delivery Room Air Intake/Output Intake/Output: Intake & Output 04/19/25 04/20/25 04/21/25 04/22/25 23:59 23:59 23:59 23:59 Intake Total 1000 1630 480 Output Total 350 1265 200 Balance 650 365 280 Meds/Results Medications: Active Medications Generic Name Dose Route Start Last Admin Trade Name Freq PRN Reason Stop Dose Admin Acetaminophen 650 mg 04/20/25 23:22 04/21/25 19:44 Acetaminophen 325 Mg Tablet PO 650 mg Q4H PRN Administration Mild Pain (1-3) or Fever Aspirin 81 mg 04/21/25 13:45 04/22/25 10:17 Aspirin 81 Mg Enteric Tablet PO 81 mg QAM VALENCIA Administration Atorvastatin Calcium 40 mg 04/22/25 09:00 04/22/25 10:17 Atorvastatin 40 Mg Tablet PO 40 mg DAILY VALENCIA Administration Baclofen 10 mg 04/21/25 14:00 04/22/25 06:01 Baclofen 10 Mg Tablet PO 10 mg Q8HR VALENCIA Administration Clopidogrel Bisulfate 75 mg 04/21/25 09:00 04/21/25 08:55 Clopidogrel Bisulfate 75 Mg Tablet PO 75 mg On Hold: 04/21/25 13:39 QAM VALENCIA Administration Dextrose 12.5 gm 04/20/25 23:27 Dextrose 50% 25 Gm/50 Ml Syringe IV PUSH PRN PRN Hypoglycemia Protocol Docusate Sodium 100 mg 04/21/25 13:50 Docusate Sodium 100 Mg Capsule PO Q12H PRN Constipation Enoxaparin Sodium 105 mg 04/21/25 14:00 04/22/25 01:00 Enoxaparin 120 Mg/0.8 Ml Syringe SUB-Q 105 mg Q12H VALENCIA Administration Fluoxetine HCl 20 mg 04/22/25 09:00 04/22/25 10:16 Fluoxetine Hcl 20 Mg Capsule PO 20 mg DAILY VALENCIA Administration Gabapentin 300 mg 04/20/25 23:45 04/21/25 20:43 Gabapentin 300 Mg Capsule PO 300 mg HS VALENCIA Administration Gabapentin 300 mg 04/21/25 14:00 04/22/25 06:01 Gabapentin 300 Mg Capsule PO 300 mg Q8HR VALENCIA Administration Glucagon 1 mg 04/20/25 23:27 Glucagon For Inj 1 Mg Vial IM PRN PRN Hypoglycemia Protocol Glucose 15 gm 04/20/25 23:27 Glucose Oral Gel 15 Gm Of Glucse In 37.5 Gm Tube PO PRN PRN Hypoglycemia Protocol Dextrose 1,000 mls @ 100 mls/hr 04/20/25 23:27 Dextrose 5% 1,000 Ml IVPB PRN PRN Hypoglycemia Protocol Ceftriaxone Sodium 1 gm/ 50 mls @ 100 mls/hr 04/22/25 06:00 04/22/25 08:18 Sodium Chloride IVPB 100 mls/hr Q24H VALENCIA Administration Azithromycin 500 mg/ Sodium 250 mls @ 250 mls/hr 04/22/25 06:00 04/22/25 06:51 Chloride IVPB 04/26/25 06:59 250 mls/hr Q24H VALENCIA Administration Metronidazole 500 mg in 100 mls @ 100 mls/hr 04/22/25 08:00 04/22/25 10:17 Flagyl 500 Mg/Iso Soln 100 Ml IVPB 100 mls/hr Q8HR VALENCIA Administration Nitroglycerin 0.4 mg 04/22/25 04:35 04/22/25 05:06 Nitroglycerin Sl 0.4 Mg Tablet SUBLINGUAL 0.4 mg Q5MIN PRN Administration Chest Pain Polyethylene Glycol 17 gm 04/22/25 09:00 04/22/25 10:16 Polyethylene Glycol 3350 17 Gm Powd.Pack PO 17 gm QAM VALENCIA Administration Polyethylene Glycol 17 gm 04/21/25 13:49 Polyethylene Glycol 3350 17 Gm Powd.Pack PO QAM PRN Constipation Sertraline HCl 25 mg 04/22/25 09:00 04/22/25 10:16 Sertraline Hcl 25 Mg Tablet PO 25 mg QAM VALENCIA Administration Radiology Results: ITS Impressions Head/Neck CTA 04/20/25 19:22 IMPRESSION: Moderate stenosis but patent right M2 and M3 segments as well as the distal branches. Brain MRI 04/21/25 11:29 IMPRESSION: 1. Large right MCA distribution infarction probably representing early chronic stage. No hemorrhage or acute ischemic event identified. 2. Other chronic findings as above. Hip/Pelvis X-Ray 04/21/25 11:57 IMPRESSION: 1. No fracture subluxation or dislocation identified. 2. Pelvic bones are largely obscured by overlying stool, bowel gas and contrast within the urinary bladder. Shoulder X-Ray 04/21/25 11:59 IMPRESSION: 1. No displaced fracture lucency. Exam somewhat limited as above. Head CT 04/22/25 06:16 IMPRESSION: 1. No change or acute intracranial findings. Chest CTA 04/22/25 06:53 IMPRESSION: 1. Left lower lobe aspiration and/or pneumonia. 2. No PE. Labs Labs: Laboratory Results - last 24 hr 04/21/25 04/21/25 04/21/25 14:04 16:41 19:57 WBC 4.9 RBC 3.97 L Hgb 12.3 L Hct 36.7 L MCV 92.4 MCH 31.0 MCHC 33.5 RDW 12.8 Plt Count 156 MPV 9.7 Sodium 138 Potassium 3.7 Chloride 103 Carbon Dioxide 29 Anion Gap 6 BUN 10 Creatinine 1.09 Estim Creat Clear Calc 80 Estimated GFR > 60 Glucose 113 H POC Capillary Glucose 111 H 115 H Calcium 8.7 Magnesium 1.9 Total Bilirubin 0.5 AST 26 ALT 14 Alkaline Phosphatase 76 Troponin I Total Protein 6.2 L Albumin 3.5 04/22/25 04/22/25 04/22/25 03:51 04:17 06:30 WBC 4.5 RBC 3.89 L Hgb 12.1 L Hct 36.1 L MCV 92.8 MCH 31.1 MCHC 33.5 RDW 12.8 Plt Count 145 L MPV 9.8 Sodium 139 Potassium 3.6 Chloride 107 Carbon Dioxide 24 Anion Gap 8 BUN 9 Creatinine 0.98 Estim Creat Clear Calc 88 Estimated GFR > 60 Glucose 103 POC Capillary Glucose 102 Calcium 9.0 Magnesium 2.1 Total Bilirubin 0.4 AST 26 ALT 13 Alkaline Phosphatase 86 Troponin I < 0.012 Total Protein 6.1 L Albumin 3.5 04/22/25 04/22/25 04/22/25 06:38 08:05 09:49 WBC RBC Hgb Hct MCV MCH MCHC RDW Plt Count MPV Sodium Potassium Chloride Carbon Dioxide Anion Gap BUN Creatinine Estim Creat Clear Calc Estimated GFR Glucose POC Capillary Glucose 112 H Calcium Magnesium Total Bilirubin AST ALT Alkaline Phosphatase Troponin I < 0.012 < 0.012 Total Protein Albumin
[2025-04-22] MEDS: ACETAMINOPHEN 325 MG TABLET 650 MG PO (16:48)
[2025-04-23] VITALS (9 sets, daily range): BP systolic 103–129; BP diastolic 57–62; PULSE 47–79; RESP 14–18; TEMP 36.1–36.4; O2SAT 98–99
--- NOTE | 2025-04-23 00:48 | PC.NURSE ---
Addendum entered by Kristian Arteaga RN 04/23/25 01:13: Behavior addressed again and reinforced willfully inappropriate behaviors will not be tolerated. Pt verbalized understanding and states ok I will be appropriate Original Note: Pt exhibits frequent impulsive sexual tendencies, pt observed multiple times this evening masturbating in clear view of hallway and anyone attempting to enter room. Pt fully comprehends this is not acceptable behavior, however it is persistent.
[2025-04-23] MEDS: ENOXAPARIN 120 MG/0.8 ML SYRINGE 105 MG SUB-Q ×2 (01:03→13:04)
[2025-04-23 04:23] LABS: Hematocrit 37.8 % (42.0-52.0); Hemoglobin 12.6 g/dL (14.0-18.0); Mean Corpuscular HGB Conc 33.3 g/dl (32-36); Mean Corpuscular Hemoglobin 31.0 pg (26-34); Mean Corpuscular Volume 93.1 fl (80-100); Platelet Count Result 146 k/mm3 (150-375); Red Blood Count 4.06 M/mm3 (4.6-6.20); White Blood Count 5.2 K/mm3 (4.5-10.0)
[2025-04-23 04:34] LABS: Alanine Aminotransferase 11 U/L (6-50); Albumin Level 3.7 g/dL (3.5-5.1); Alkaline Phosphatase 82 U/L (38-126); Anion Gap 4 mmol/L (4-12); Aspartate Amino Transferase 24 U/L (17-59); Bilirubin,Total 0.5 mg/dL (0.2-1.3); Blood Urea Nitrogen 7 mg/dL (9-20); Calcium 9.0 mg/dL (8.4-10.2); Carbon Dioxide 31 mmol/L (22-30); Chloride 104 mmol/L (98-107); Estimated CRCL calculation 95 ml/min; Estimated Glomerular Filt Rate > 60; Glucose 96 mg/dL (65-110); Magnesium 2.2 mg/dL (1.6-2.3); Potassium 3.7 mmol/L (3.4-5.0); Sodium 139 mmol/L (137-145); Total Protein 6.4 g/dL (6.3-8.2)
[2025-04-23] MEDS: AZITHROMYCIN IV 500 MG in SODIUM CHLORIDE 0.9% IV 250 ML IVPB (05:02)
[2025-04-23] MEDS: GABAPENTIN 300 MG CAPSULE PO ×3 (05:06→21:20)
[2025-04-23] MEDS: BACLOFEN 10 MG TABLET PO ×3 (05:06→21:20)
[2025-04-23] MEDS: metroNIDAZOLE 500 MG/ISO 100ML 500 MG/100 ML BAG 100 MG IVPB ×3 (05:06→21:20)
[2025-04-23] MEDS: cefTRIAXone 1 GM in SODIUM CHLORIDE 0.9% IV 50 ML 100 ML IVPB (05:12)
[2025-04-23] MEDS: ASPIRIN 81 MG ENTERIC TABLET PO (08:49)
[2025-04-23] MEDS: SERTRALINE HCL 25 MG TABLET PO (08:49)
[2025-04-23] MEDS: ATORVASTATIN 40 MG TABLET PO (08:49)
[2025-04-23] MEDS: ACETAMINOPHEN 325 MG TABLET 650 MG PO (08:53)
--- NOTE | 2025-04-23 12:09 | PM.IMPN ---
Progress Note: A&P Assessment and Plan (1) Ischemic stroke: Code(s): I63.9 - Cerebral infarction, unspecified Status: Acute (2) Hypoglycemia: Code(s): E16.2 - Hypoglycemia, unspecified Status: Acute (3) Left leg pain: Code(s): M79.605 - Pain in left leg Status: Acute (4) Left shoulder pain: Code(s): M25.512 - Pain in left shoulder Status: Acute Plan patient with c/o hypoglycemia, left sided facial droops, patient blood sugars were corrected in the ER, most likely due to poor PO intake, as patient is not taking any antidiabetes medications, patient does complaints of swelling left lower extremity, left hip and shoulder, patient had fall prior to coming to the ER. patient recently had 5 strokes to further evaluate, CT large right MCA distribution infarction probably representing early chronic stage. No hemorrhage or acute ischemic event identified. will do MRI of brain, patient was seen by the neurologist, patient is homeless and has not been taking his home medication including Eliquis. 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 Patient will be seen neurologist and further recommendation to follow. will have PT/OT work with the patient. Subjective Date/time seen: 04/23/25 12:09 Interval history: patient with c/o hypoglycemia, left sided facial droops, patient blood sugars were corrected in the ER, most likely due to poor PO intake, as patient is not taking any antidiabetes medications, patient does complaints of swelling left lower extremity, left hip and shoulder, patient had fall prior to coming to the ER. patient recently had 5 strokes to further evaluate, CT large right MCA distribution infarction probably representing early chronic stage. No hemorrhage or acute ischemic event identified. will do MRI of brain, patient was seen by the neurologist, patient is homeless and has not been taking his home medication including Eliquis. 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 Patient will be seen neurologist and further recommendation to follow. will have PT/OT work with the patient. Exam Narrative: Patient is comfortable, NAD HEENT: eyes are clear and none icteric LUNGS:CTA HEART: RR S1S2 ABD: BS+, Soft and nontender Lower extremities: left lower extremity edema. good skin color, and warm. tender. SKIN: nonjaundiced Neuro: grossly intact. Objective Data Vital Signs Vital Signs: Vital Signs - 24 hr 04/22/25 13:18 04/22/25 14:00 04/22/25 16:00 Temperature 36.6 C Pulse Rate 106 H 64 Respiratory Rate 18 Blood Pressure 112/67 Pulse Oximetry 99 Oxygen Delivery Room Air 04/22/25 16:19 04/22/25 20:00 04/22/25 20:00 Temperature Pulse Rate 65 Respiratory Rate Blood Pressure Pulse Oximetry Oxygen Delivery Room Air Room Air 04/22/25 21:31 04/23/25 00:00 04/23/25 04:00 Temperature 36.2 C L Pulse Rate 60 79 47 L Respiratory Rate 20 Blood Pressure 127/71 Pulse Oximetry 98 Oxygen Delivery 04/23/25 05:52 04/23/25 08:00 04/23/25 08:00 Temperature 36.1 C L Pulse Rate 57 L 54 L Respiratory Rate 18 18 Blood Pressure 129/60 Pulse Oximetry 99 99 Oxygen Delivery Room Air Intake/Output Intake/Output: Intake & Output 04/20/25 04/21/25 04/22/25 04/23/25 23:59 23:59 23:59 23:59 Intake Total 1000 1630 1800 1280 Output Total 350 1265 1550 700 Balance 650 365 250 580 Meds/Results Medications: Active Medications Generic Name Dose Route Start Last Admin Trade Name Freq PRN Reason Stop Dose Admin Acetaminophen 650 mg 04/20/25 23:22 04/23/25 08:53 Acetaminophen 325 Mg Tablet PO 650 mg Q4H PRN Administration Mild Pain (1-3) or Fever Aspirin 81 mg 04/21/25 13:45 04/23/25 08:49 Aspirin 81 Mg Enteric Tablet PO 81 mg QAM VALENCIA Administration Atorvastatin Calcium 40 mg 04/22/25 09:00 04/23/25 08:49 Atorvastatin 40 Mg Tablet PO 40 mg DAILY VALENCIA Administration Baclofen 10 mg 04/21/25 14:00 04/23/25 05:06 Baclofen 10 Mg Tablet PO 10 mg Q8HR VALENCIA Administration Clopidogrel Bisulfate 75 mg 04/21/25 09:00 04/21/25 08:55 Clopidogrel Bisulfate 75 Mg Tablet PO 75 mg On Hold: 04/21/25 13:39 QAM VALENCIA Administration Dextrose 12.5 gm 04/20/25 23:27 Dextrose 50% 25 Gm/50 Ml Syringe IV PUSH PRN PRN Hypoglycemia Protocol Docusate Sodium 100 mg 04/21/25 13:50 Docusate Sodium 100 Mg Capsule PO Q12H PRN Constipation Enoxaparin Sodium 105 mg 04/21/25 14:00 04/23/25 01:03 Enoxaparin 120 Mg/0.8 Ml Syringe SUB-Q 105 mg Q12H VALENCIA Administration Fluoxetine HCl 20 mg 04/22/25 09:00 04/23/25 08:49 Fluoxetine Hcl 20 Mg Capsule PO 20 mg DAILY VALENCIA Administration Gabapentin 300 mg 04/20/25 23:45 04/22/25 21:57 Gabapentin 300 Mg Capsule PO 300 mg HS VALENCIA Administration Gabapentin 300 mg 04/21/25 14:00 04/23/25 05:06 Gabapentin 300 Mg Capsule PO 300 mg Q8HR VALENCIA Administration Glucagon 1 mg 04/20/25 23:27 Glucagon For Inj 1 Mg Vial IM PRN PRN Hypoglycemia Protocol Glucose 15 gm 04/20/25 23:27 Glucose Oral Gel 15 Gm Of Glucse In 37.5 Gm Tube PO PRN PRN Hypoglycemia Protocol Dextrose 1,000 mls @ 100 mls/hr 04/20/25 23:27 Dextrose 5% 1,000 Ml IVPB PRN PRN Hypoglycemia Protocol Ceftriaxone Sodium 1 gm/ 50 mls @ 100 mls/hr 04/22/25 06:00 04/23/25 06:37 Sodium Chloride IVPB Infused Q24H VALENCIA Infusion Azithromycin 500 mg/ Sodium 250 mls @ 250 mls/hr 04/22/25 06:00 04/23/25 06:05 Chloride IVPB 04/26/25 06:59 Infused Q24H VALENCIA Infusion Metronidazole 500 mg in 100 mls @ 100 mls/hr 04/22/25 08:00 04/23/25 07:37 Flagyl 500 Mg/Iso Soln 100 Ml IVPB Infused Q8HR VALENCIA Infusion Nitroglycerin 0.4 mg 04/22/25 04:35 04/22/25 05:06 Nitroglycerin Sl 0.4 Mg Tablet SUBLINGUAL 0.4 mg Q5MIN PRN Administration Chest Pain Polyethylene Glycol 17 gm 04/22/25 09:00 04/23/25 08:49 Polyethylene Glycol 3350 17 Gm Powd.Pack PO Not Given QAM VALENCIA Polyethylene Glycol 17 gm 04/21/25 13:49 Polyethylene Glycol 3350 17 Gm Powd.Pack PO QAM PRN Constipation Sertraline HCl 25 mg 04/22/25 09:00 04/23/25 08:49 Sertraline Hcl 25 Mg Tablet PO 25 mg QAM VALENCIA Administration Radiology Results: ITS Impressions Head/Neck CTA 04/20/25 19:22 IMPRESSION: Moderate stenosis but patent right M2 and M3 segments as well as the distal branches. Brain MRI 04/21/25 11:29 IMPRESSION: 1. Large right MCA distribution infarction probably representing early chronic stage. No hemorrhage or acute ischemic event identified. 2. Other chronic findings as above. Hip/Pelvis X-Ray 04/21/25 11:57 IMPRESSION: 1. No fracture subluxation or dislocation identified. 2. Pelvic bones are largely obscured by overlying stool, bowel gas and contrast within the urinary bladder. Shoulder X-Ray 04/21/25 11:59 IMPRESSION: 1. No displaced fracture lucency. Exam somewhat limited as above. Head CT 04/22/25 06:16 IMPRESSION: 1. No change or acute intracranial findings. Chest CTA 04/22/25 06:53 IMPRESSION: 1. Left lower lobe aspiration and/or pneumonia. 2. No PE. Labs Labs: Laboratory Results - last 24 hr 04/22/25 04/22/25 04/22/25 13:06 16:56 20:54 WBC RBC Hgb Hct MCV MCH MCHC RDW Plt Count MPV Sodium Potassium Chloride Carbon Dioxide Anion Gap BUN Creatinine Estim Creat Clear Calc Estimated GFR Glucose POC Capillary Glucose 165 H 110 H 97 Calcium Magnesium Total Bilirubin AST ALT Alkaline Phosphatase Total Protein Albumin 04/23/25 04/23/25 04/23/25 04:13 07:42 11:24 WBC 5.2 RBC 4.06 L Hgb 12.6 L Hct 37.8 L MCV 93.1 MCH 31.0 MCHC 33.3 RDW 12.5 Plt Count 146 L MPV 9.4 Sodium 139 Potassium 3.7 Chloride 104 Carbon Dioxide 31 H Anion Gap 4 BUN 7 L Creatinine 0.91 Estim Creat Clear Calc 95 Estimated GFR > 60 Glucose 96 POC Capillary Glucose 91 87 Calcium 9.0 Magnesium 2.2 Total Bilirubin 0.5 AST 24 ALT 11 Alkaline Phosphatase 82 Total Protein 6.4 Albumin 3.7
[2025-04-24] VITALS (9 sets, daily range): BP systolic 100–127; BP diastolic 56–67; PULSE 57–75; RESP 16–20; TEMP 36.5–36.8; O2SAT 97–100
[2025-04-24] MEDS: ENOXAPARIN 120 MG/0.8 ML SYRINGE 105 MG SUB-Q ×2 (02:14→13:23)
[2025-04-24] MEDS: cefTRIAXone 1 GM in SODIUM CHLORIDE 0.9% IV 50 ML 100 ML IVPB (04:53)
[2025-04-24 05:00] LABS: Hematocrit 37.4 % (42.0-52.0); Hemoglobin 12.3 g/dL (14.0-18.0); Mean Corpuscular HGB Conc 32.9 g/dl (32-36); Mean Corpuscular Hemoglobin 30.9 pg (26-34); Mean Corpuscular Volume 94.0 fl (80-100); Platelet Count Result 163 k/mm3 (150-375); Red Blood Count 3.98 M/mm3 (4.6-6.20); White Blood Count 4.5 K/mm3 (4.5-10.0)
[2025-04-24 05:16] LABS: Alanine Aminotransferase 10 U/L (6-50); Albumin Level 3.6 g/dL (3.5-5.1); Alkaline Phosphatase 82 U/L (38-126); Anion Gap 3 mmol/L (4-12); Aspartate Amino Transferase 22 U/L (17-59); Bilirubin,Total 0.5 mg/dL (0.2-1.3); Blood Urea Nitrogen 8 mg/dL (9-20); Calcium 8.7 mg/dL (8.4-10.2); Carbon Dioxide 28 mmol/L (22-30); Chloride 105 mmol/L (98-107); Estimated CRCL calculation 91 ml/min; Estimated Glomerular Filt Rate > 60; Glucose 95 mg/dL (65-110); Magnesium 2.2 mg/dL (1.6-2.3); Potassium 3.9 mmol/L (3.4-5.0); Sodium 136 mmol/L (137-145); Total Protein 6.0 g/dL (6.3-8.2)
[2025-04-24] MEDS: metroNIDAZOLE 500 MG/ISO 100ML 500 MG/100 ML BAG 100 MG IVPB ×3 (05:22→21:48)
[2025-04-24] MEDS: AZITHROMYCIN IV 500 MG in SODIUM CHLORIDE 0.9% IV 250 ML IVPB (06:28)
[2025-04-24] MEDS: BACLOFEN 10 MG TABLET PO ×3 (06:29→21:48)
[2025-04-24] MEDS: GABAPENTIN 300 MG CAPSULE PO ×3 (06:29→21:48)
[2025-04-24] MEDS: ASPIRIN 81 MG ENTERIC TABLET PO (09:15)
[2025-04-24] MEDS: ACETAMINOPHEN 325 MG TABLET 650 MG PO ×2 (09:15→17:47)
[2025-04-24] MEDS: ATORVASTATIN 40 MG TABLET PO (09:16)
[2025-04-24] MEDS: SERTRALINE HCL 25 MG TABLET PO (09:16)
--- NOTE | 2025-04-24 13:29 | PM.IMPN ---
Progress Note: A&P Assessment and Plan (1) Ischemic stroke: Code(s): I63.9 - Cerebral infarction, unspecified Status: Acute (2) Hypoglycemia: Code(s): E16.2 - Hypoglycemia, unspecified Status: Acute (3) Left leg pain: Code(s): M79.605 - Pain in left leg Status: Acute (4) Left shoulder pain: Code(s): M25.512 - Pain in left shoulder Status: Acute Plan This is a 60-year-old male with history of CVA presented to the ED for stroke-like symptoms. He was experiencing severe weakness on the left side with left facial droop. He stated [facility] about 4:00 p.m. and was left [place] bus stop. He was having stroke-like symptoms so a bystander called EMS. On their arrival he was noted to have left-sided droop and a glucose of 38. Was given an amp of D50 but continued to have the droop. He was then brought to the ER for evaluation. Patient's blood sugar were corrected in the ER. Patient has not been taking any antidiabetic medications. He also complained of swelling of left lower extremity left hip and shoulder and reported patient had a fall prior to coming to the ER. History of stroke [address] head showed large right MCA distribution infarction representing early chronic stays with no acute ischemic changes or hemorrhage. Neurology has been consulted. Patient is homeless and has not been taking his home medication which includes Eliquis. Stroke-like symptoms CT head ruled out acute stroke. Could be related to hypoglycemia which was positive on presentation. MRI brain was negative for acute stroke. Large right MCA distribution infarction was noted. Head CTA showed a moderate stenosis of M2 and M3 segment without aneurysm. Patient currently remains on aspirin and therapeutic anticoagulation. Lower extremity edema left side venous duplex was performed which showed DVT and was patient was started on Lovenox and will be switched to Eliquis at discharge. X-ray was negative for any bony injury. Chest pain on 04/22/2025 during hospital stay CTA PE protocol was performed which did not show PE however was concern for aspiration pneumonia. Patient was started on IV antibiotics which will be continued. Echo with EF 60-65% with no significant valvular abnormalities. No evidence of shunt left leg dvt POSITIVE for DVT common femoral vein through calf veins. on lovenox Hypoglycemia PT OT to see DVT prophylaxis currently on anticoagulation Code status full code Subjective Date/time seen: 04/24/25 13:29 Interval history: No new complaints. States awaiting placement. Has left-sided weakness from stroke 6 months ago. Review of Systems Review of Systems: All systems reviewed & are unremarkable except as noted in HPI and below Exam Narrative: Patient is comfortable, NAD HEENT: eyes are clear and none icteric LUNGS:CTA HEART: RR S1S2 ABD: BS+, Soft and nontender Lower extremities: left lower extremity edema. good skin color, and warm. tender. SKIN: nonjaundiced Neuro: grossly intact. Left-sided weakness Objective Data Vital Signs Vital Signs: Vital Signs - 24 hr 04/23/25 14:00 04/23/25 16:03 04/23/25 20:00 Temperature 97.6 F Pulse Rate 68 60 60 Respiratory Rate 14 Blood Pressure 117/62 Pulse Oximetry 98 Oxygen Delivery 04/23/25 20:44 04/24/25 00:00 04/24/25 04:00 Temperature 97.4 F L Pulse Rate 54 L 63 63 Respiratory Rate 16 Blood Pressure 103/57 L Pulse Oximetry 98 Oxygen Delivery 04/24/25 05:09 04/24/25 08:00 04/24/25 09:25 Temperature 98.2 F Pulse Rate 61 66 Respiratory Rate 16 Blood Pressure 103/56 L Pulse Oximetry 97 Oxygen Delivery Room Air Intake/Output Intake/Output: Intake & Output 04/21/25 04/22/25 04/23/25 04/24/25 23:59 23:59 23:59 23:59 Intake Total 1630 1800 2660 930 Output Total 1265 1550 3250 900 Balance 365 250 -590 30 Meds/Results Medications: Active Medications Generic Name Dose Route Start Last Admin Trade Name Freq PRN Reason Stop Dose Admin Acetaminophen 650 mg 04/20/25 23:22 04/24/25 09:15 Acetaminophen 325 Mg Tablet PO 650 mg Q4H PRN Administration Mild Pain (1-3) or Fever Aspirin 81 mg 04/21/25 13:45 04/24/25 09:15 Aspirin 81 Mg Enteric Tablet PO 81 mg QAM VALENCIA Administration Atorvastatin Calcium 40 mg 04/22/25 09:00 04/24/25 09:16 Atorvastatin 40 Mg Tablet PO 40 mg DAILY VALENCIA Administration Baclofen 10 mg 04/21/25 14:00 04/24/25 13:21 Baclofen 10 Mg Tablet PO 10 mg Q8HR VALENCIA Administration Clopidogrel Bisulfate 75 mg 04/21/25 09:00 04/21/25 08:55 Clopidogrel Bisulfate 75 Mg Tablet PO 75 mg On Hold: 04/21/25 13:39 QAM VALENCIA Administration Dextrose 12.5 gm 04/20/25 23:27 Dextrose 50% 25 Gm/50 Ml Syringe IV PUSH PRN PRN Hypoglycemia Protocol Docusate Sodium 100 mg 04/21/25 13:50 Docusate Sodium 100 Mg Capsule PO Q12H PRN Constipation Enoxaparin Sodium 105 mg 04/21/25 14:00 04/24/25 13:23 Enoxaparin 120 Mg/0.8 Ml Syringe SUB-Q 105 mg Q12H VALENCIA Administration Fluoxetine HCl 20 mg 04/22/25 09:00 04/24/25 09:16 Fluoxetine Hcl 20 Mg Capsule PO 20 mg DAILY VALENCIA Administration Gabapentin 300 mg 04/21/25 14:00 04/24/25 13:21 Gabapentin 300 Mg Capsule PO 300 mg Q8HR VALENCIA Administration Glucagon 1 mg 04/20/25 23:27 Glucagon For Inj 1 Mg Vial IM PRN PRN Hypoglycemia Protocol Glucose 15 gm 04/20/25 23:27 Glucose Oral Gel 15 Gm Of Glucse In 37.5 Gm Tube PO PRN PRN Hypoglycemia Protocol Dextrose 1,000 mls @ 100 mls/hr 04/20/25 23:27 Dextrose 5% 1,000 Ml IVPB PRN PRN Hypoglycemia Protocol Ceftriaxone Sodium 1 gm/ 50 mls @ 100 mls/hr 04/22/25 06:00 04/24/25 05:24 Sodium Chloride IVPB Infused Q24H VALENCIA Infusion Azithromycin 500 mg/ Sodium 250 mls @ 250 mls/hr 04/22/25 06:00 04/24/25 06:28 Chloride IVPB 04/26/25 06:59 250 mls/hr Q24H VALENCIA Administration Metronidazole 500 mg in 100 mls @ 100 mls/hr 04/22/25 08:00 04/24/25 13:22 Flagyl 500 Mg/Iso Soln 100 Ml IVPB 100 mls/hr Q8HR VALENCIA Administration Nitroglycerin 0.4 mg 04/22/25 04:35 04/22/25 05:06 Nitroglycerin Sl 0.4 Mg Tablet SUBLINGUAL 0.4 mg Q5MIN PRN Administration Chest Pain Polyethylene Glycol 17 gm 04/22/25 09:00 04/24/25 09:16 Polyethylene Glycol 3350 17 Gm Powd.Pack PO Not Given QAM VALENCIA Polyethylene Glycol 17 gm 04/21/25 13:49 Polyethylene Glycol 3350 17 Gm Powd.Pack PO QAM PRN Constipation Sertraline HCl 25 mg 04/22/25 09:00 04/24/25 09:16 Sertraline Hcl 25 Mg Tablet PO 25 mg QAM VALENCIA Administration Radiology Results: ITS Impressions Head/Neck CTA 04/20/25 19:22 IMPRESSION: Moderate stenosis but patent right M2 and M3 segments as well as the distal branches. Brain MRI 04/21/25 11:29 IMPRESSION: 1. Large right MCA distribution infarction probably representing early chronic stage. No hemorrhage or acute ischemic event identified. 2. Other chronic findings as above. Hip/Pelvis X-Ray 04/21/25 11:57 IMPRESSION: 1. No fracture subluxation or dislocation identified. 2. Pelvic bones are largely obscured by overlying stool, bowel gas and contrast within the urinary bladder. Shoulder X-Ray 04/21/25 11:59 IMPRESSION: 1. No displaced fracture lucency. Exam somewhat limited as above. Head CT 04/22/25 06:16 IMPRESSION: 1. No change or acute intracranial findings. Chest CTA 04/22/25 06:53 IMPRESSION: 1. Left lower lobe aspiration and/or pneumonia. 2. No PE. Labs Labs: Laboratory Results - last 24 hr 04/23/25 04/23/25 04/24/25 17:09 20:38 04:15 WBC 4.5 RBC 3.98 L Hgb 12.3 L Hct 37.4 L MCV 94.0 MCH 30.9 MCHC 32.9 RDW 12.7 Plt Count 163 MPV 10.0 Sodium 136 L Potassium 3.9 Chloride 105 Carbon Dioxide 28 Anion Gap 3 L BUN 8 L Creatinine 0.95 Estim Creat Clear Calc 91 Estimated GFR > 60 Glucose 95 POC Capillary Glucose 125 H 98 Calcium 8.7 Magnesium 2.2 Total Bilirubin 0.5 AST 22 ALT 10 Alkaline Phosphatase 82 Total Protein 6.0 L Albumin 3.6 04/24/25 11:43 WBC RBC Hgb Hct MCV MCH MCHC RDW Plt Count MPV Sodium Potassium Chloride Carbon Dioxide Anion Gap BUN Creatinine Estim Creat Clear Calc Estimated GFR Glucose POC Capillary Glucose 97 Calcium Magnesium Total Bilirubin AST ALT Alkaline Phosphatase Total Protein Albumin
[2025-04-25] VITALS: PULSE 51
[2025-04-25] MEDS: ENOXAPARIN 120 MG/0.8 ML SYRINGE 105 MG SUB-Q (03:21)
[2025-04-25 04:00] VITALS: PULSE 52
[2025-04-25 04:06] VITALS: BP 108/65; PULSE 54; RESP 20; TEMP 36.4; O2SAT 96
[2025-04-25] MEDS: cefTRIAXone 1 GM in SODIUM CHLORIDE 0.9% IV 50 ML 100 ML IVPB (04:55)
[2025-04-25 05:09] LABS: Hematocrit 37.3 % (42.0-52.0); Hemoglobin 12.2 g/dL (14.0-18.0); Mean Corpuscular HGB Conc 32.7 g/dl (32-36); Mean Corpuscular Hemoglobin 30.8 pg (26-34); Mean Corpuscular Volume 94.2 fl (80-100); Platelet Count Result 164 k/mm3 (150-375); Red Blood Count 3.96 M/mm3 (4.6-6.20); White Blood Count 4.4 K/mm3 (4.5-10.0)
[2025-04-25] MEDS: metroNIDAZOLE 500 MG/ISO 100ML 500 MG/100 ML BAG 100 MG IVPB (05:25)
[2025-04-25 05:37] LABS: Alanine Aminotransferase 13 U/L (6-50); Albumin Level 3.5 g/dL (3.5-5.1); Alkaline Phosphatase 82 U/L (38-126); Anion Gap 4 mmol/L (4-12); Aspartate Amino Transferase 23 U/L (17-59); Bilirubin,Total 0.4 mg/dL (0.2-1.3); Blood Urea Nitrogen 7 mg/dL (9-20); Calcium 8.7 mg/dL (8.4-10.2); Carbon Dioxide 27 mmol/L (22-30); Chloride 106 mmol/L (98-107); Estimated CRCL calculation 100 ml/min; Estimated Glomerular Filt Rate > 60; Glucose 100 mg/dL (65-110); Magnesium 2.3 mg/dL (1.6-2.3); Potassium 3.8 mmol/L (3.4-5.0); Sodium 137 mmol/L (137-145); Total Protein 6.0 g/dL (6.3-8.2)
[2025-04-25] MEDS: AZITHROMYCIN IV 500 MG in SODIUM CHLORIDE 0.9% IV 250 ML IVPB (06:58)
[2025-04-25] MEDS: GABAPENTIN 300 MG CAPSULE PO (06:59)
[2025-04-25] MEDS: BACLOFEN 10 MG TABLET PO (06:59)
[2025-04-25] MEDS: ATORVASTATIN 40 MG TABLET PO (09:12)
[2025-04-25] MEDS: ASPIRIN 81 MG ENTERIC TABLET PO (09:12)
[2025-04-25] MEDS: ACETAMINOPHEN 325 MG TABLET 650 MG PO (09:12)
[2025-04-25] MEDS: SERTRALINE HCL 25 MG TABLET PO (09:13)
[2025-04-25 09:30] VITALS: PULSE 55
--- NOTE | 2025-04-25 10:55 | P.DS_ITS ---
DS: Admitting Diagnosis Discharge Date 04/25/2025 Admitting Diagnosis stroke-like symptoms DS: Discharge Diagnosis Discharge Diagnosis (1) Ischemic stroke: Code(s): I63.9 - Cerebral infarction, unspecified Status: Acute (2) Hypoglycemia: Code(s): E16.2 - Hypoglycemia, unspecified Status: Acute (3) Left leg pain: Code(s): M79.605 - Pain in left leg Status: Acute (4) Left shoulder pain: Code(s): M25.512 - Pain in left shoulder Status: Acute DS: Summary Hospital Course Hospital Course: This is a 60-year-old male with history of CVA presented to the ED for stroke- like symptoms. He was experiencing severe weakness on the left side with left facial droop. He stated he [facility] from [facility] at about 4:00 p.m. and was left in bus stop. He was having stroke-like symptoms so a bystander called EMS. On their arrival he was noted to have left-sided droop and a glucose of 38. Was given an amp of D50 but continued to have the droop. He was then brought to the ER for evaluation. Patient's blood sugar were corrected in the ER. Patient has not been taking any antidiabetic medications. He also complained of swelling of left lower extremity left hip and shoulder and reported patient had a fall prior to coming to the ER. History of stroke [address] head showed large right MCA distribution infarction representing early chronic stays with no acute ischemic changes or hemorrhage. Neurology has been consulted. Patient is homeless and has not been taking his home medication which includes Eliquis. Stroke-like symptoms CT head ruled out acute stroke. Could be related to hypog lycemia which was positive on presentation. MRI brain was negative for acute stroke. Large right MCA distribution infarction was noted. Head CTA showed a moderate stenosis of M2 and M3 segment without aneurysm. Patient currently remains on aspirin and therapeutic anticoagulation. Lower extremity edema left side venous duplex was performed which showed DVT and was patient was started on Lovenox and will be switched to Eliquis at discharge. X-ray was negative for any bony injury. Chest pain on 04/22/2025 during hospital stay CTA PE protocol was performed which did not show PE however was concern for aspiration pneumonia. Patient was started on IV antibiotics which will be continued. Echo with EF 60-65% with no significant valvular abnormalities. No evidence of shunt left leg dvt POSITIVE for DVT common femoral vein through calf veins. on lovenox Hypoglycemia PT OT to see DVT prophylaxis currently on anticoagulation Code status full code Disposition: he is homeless. and arrangements for discharge to swing bed at [facility] Time Spent with Patient Time attestation: Total time spent providing and/or coordinating discharge services: 35 Exam Narrative: Patient is comfortable, NAD HEENT: eyes are clear and none icteric LUNGS:CTA HEART: RR S1S2 ABD: BS+, Soft and nontender Lower extremities: left lower extremity edema. good skin color, and warm. tender. SKIN: nonjaundiced Neuro: grossly intact. Left-sided weakness DS: Data Data Completed and Pending Completed studies during hospitalization: Exam Type: CA echo dop bubble study w con Complete two-dimentional, color flow and Doppler transthoracic echocardiogram is performed with agitated saline and with contrast to opacify the left ventricle and to improve the delineation of the left ventricle endocardial borders. Staff Referring Physician: Josselyn Santiago DO Barbering Instructor: Skip Easton III Attending Provider: Josselyn Santiago DO Contrast/Agitated Saline Contrast/Ag. Saline: Definity Amount: 2.00 ml Administered By: Skip Easton III Existing IV Access: Yes IV Access Condition: patent with no signs of infiltration Contrast/Ag. Saline: Agitated Saline Amount: 16.00 ml Existing IV Access: Yes IV Access Condition: patent with no signs of infiltration Summary 1. Poor Definity images. 2. Suboptimal study for accurate valve assessment. 3. There is normal biventricular size and systolic function. 4. No significant valve abnormalities in the available images. 5. Agitated saline study did not reveal any definitive right to left shunts. Left Ventricle The left ventricle is normal in size and systolic function. There is left ventricular concentric remodeling. The left ventricular ejection fraction is visually estimated to be 60-65%. Right Ventricle The right ventricle is normal in size and systolic function. Left Atria The left atrium is normal size. Right Atria The right atrium is normal size. Atrial Septum Agitated saline study did not reveal any definitive right to left shunts. Aortic Valve The aortic valve is not well visualized. There is no aortic stenosis. There is no aortic regurgitation. Pulmonic Valve The pulmonic valve is not well visualized. Mitral Valve The mitral valve is normal. There is trace mitral regurgitation. Tricuspid Valve The tricuspid valve is not well visualized. Pericardium/Pleural Pericardium is normal in appearance with no evidence for significant pericardial effusion. Inferior Vena Cava Inferior vena cava is not well visualized. Aorta The aortic root at the level of the sinus of Valsalva measures 3.2 cm in diameter. Labs on day of discharge: Labs from last 24 hours 04/25/25 04/25/25 04/24/25 07:46 04:03 20:10 WBC 4.4 L RBC 3.96 L Hgb 12.2 L Hct 37.3 L MCV 94.2 MCH 30.8 MCHC 32.7 RDW 12.7 Plt Count 164 MPV 9.9 Sodium 137 Potassium 3.8 Chloride 106 Carbon Dioxide 27 Anion Gap 4 BUN 7 L Creatinine 0.86 Estim Creat Clear Calc 100 Estimated GFR > 60 Glucose 100 POC Capillary Glucose 104 139 H Calcium 8.7 Magnesium 2.3 Total Bilirubin 0.4 AST 23 ALT 13 Alkaline Phosphatase 82 Total Protein 6.0 L Albumin 3.5 04/24/25 04/24/25 04/24/25 16:58 11:43 07:43 WBC RBC Hgb Hct MCV MCH MCHC RDW Plt Count MPV Sodium Potassium Chloride Carbon Dioxide Anion Gap BUN Creatinine Estim Creat Clear Calc Estimated GFR Glucose POC Capillary Glucose 112 H 97 107 H Calcium Magnesium Total Bilirubin AST ALT Alkaline Phosphatase Total Protein Albumin Preliminary micro results at discharge 04/22/25 06:38 Blood Culture - Preliminary Blood 04/22/25 06:42 Blood Culture - Preliminary Blood Imaging Radiologist's impression: ITS Impressions Head CT 04/20/25 19:09 IMPRESSION: Large subacute infarct involving the right MCA territory. All CT scans at this facility are performed using low dose modulation techniques as appropriate to perform exam including the following: automated exposure control; use of iterative reconstruction technique; adjustment of the mA and/or kV according to patient size (this includes techniques or standardized protocols for targeted exams where dose is matched to indication/reason for exam). Head/Neck CTA 04/20/25 19:22 IMPRESSION: Moderate stenosis but patent right M2 and M3 segments as well as the distal branches. Brain MRI 04/21/25 11:29 IMPRESSION: 1. Large right MCA distribution infarction probably representing early chronic stage. No hemorrhage or acute ischemic event identified. 2. Other chronic findings as above. Hip/Pelvis X-Ray 04/21/25 11:57 IMPRESSION: 1. No fracture subluxation or dislocation identified. 2. Pelvic bones are largely obscured by overlying stool, bowel gas and contrast within the urinary bladder. Shoulder X-Ray 04/21/25 11:59 IMPRESSION: 1. No displaced fracture lucency. Exam somewhat limited as above. Head CT 04/22/25 06:16 IMPRESSION: 1. No change or acute intracranial findings. Chest CTA 04/22/25 06:53 IMPRESSION: 1. Left lower lobe aspiration and/or pneumonia. 2. No PE. Discharge Plan Discharge Attending physician on discharge: Jung Willis Consulting providers: Alin Perez Discharging Clinician: Jung Willis Anticipated Discharge Date/Time: 04/25/25 10:58 Patient Disposition: Hospital Swing Bed Activity: as tolerated Diet: heart healthy Patient Instructions: Antibiotic Form, How to Stop Smoking (GEN) Patient Language: Korean Stand Alone Forms: General Discharge Information Follow-up/Referrals: Alin Perez MD [Physician, Neurology] - 4 Weeks UNKNOWN,DOCTOR [Primary Care Provider] - 1 Week Discharge Medications: New acetaminophen 325 mg Tablet 650 mg PO Q4H PRN (Reason: Mild Pain (1-3) Or Fever) Qty: 30 0RF aspirin 81 mg Tablet,Delayed Release (Dr/Ec) 81 mg PO QAM Qty: 30 0RF polyethylene glycol 3350 [Miralax] 17 gram Powder In Packet 17 g PO QAM PRN (Reason: Constipation) Qty: 30 0RF Eliquis 5 mg tablet See Rx Instructions .ROUTE .COMPLEX Qty: 60 0RF Rx Instructions: take 10 mg twice daily x 7 days then 5 mg twice daily Continued atorvastatin 40 mg tablet 40 mg PO DAILY baclofen 10 mg tablet 10 mg PO Q6H PRN (Reason: muscle spasm) fluoxetine 20 mg capsule 20 mg PO DAILY gabapentin 300 mg capsule 300 mg PO .TID sertraline 25 mg tablet 25 mg PO DAILY pantoprazole 20 mg tablet,delayed release (DR/EC) 20 mg PO DAILY montelukast 10 mg tablet 10 mg PO QPM Changed ramelteon 8 mg tablet 8 mg PO DAILY PRN (Reason: insomnia) Qty: 30 0RF Discontinued ibuprofen 200 mg tablet 400 mg PO Q4H PRN (Reason: pain) Eliquis 5 mg tablet 5 mg PO DAILY furosemide 20 mg tablet 20 mg PO DAILY Date of admission: 04/20/25 21:24 Primary Care Provider: UNKNOWN,DOCTOR Admitting Provider: Josselyn Santiago Attending physician on admission: Josselyn Santiago Condition: Stable
== END 2025-04-25 13:40 | disposition swing bed (61) | DRG 64 ==
LOC: ANHED 20:16 → ANH2MED 21:44
PROVIDERS: Family Medicine; Admitting Provider Internal Medicine; Emergency Provider Student in an Organized Health Care Education/Training Program; Visit Provider Internal Medicine
DX: I63.511 Cerebral infarction due to unspecified occlusion or stenosis of right middle cerebral artery (principal); J18.9 Pneumonia, unspecified organism; I82.412 Acute embolism and thrombosis of left femoral vein; Z59.00 Homelessness unspecified; E16.2 Hypoglycemia, unspecified; R29.810 Facial weakness; M25.512 Pain in left shoulder; F17.290 Nicotine dependence, other tobacco product, uncomplicated; W19.XXXA Unspecified fall, initial encounter
CPT/HCPCS: 36415; 70450; 70496; 70498; 70553; 71275; 73030; 73502; 80053; 80061; 80143; 80179; 80307; 81003; 82077; 82948; 83036; 83735; 84439; 84443; 84484; 85025; 85027; 87040; 87449; 87899; 93005; 93970; 96360; 96375; 97162; 97166; 97530; 97535; 97542; 99285; A9270; A9577; C8929; J0456; J0696; J1650; J1836; J1885; J7030; J7050; Q9957; Q9967

== ENCOUNTER 2025-04-25 14:37 | Inpatient (IN) | payer MEDICARE, MEDICAID, SELFPAY ==
[2025-04-25 14:43] VITALS: BMI 32.8
--- OUTSIDE RECORDS SUMMARY | 2025-04-25 14:45 | XMS_ITS | Clinical Summary ---
Author Organization [facility] Address [address] [place] [address] Phone Care Team Providers Care Pediatric Audiologist Name Role Phone Unavailable Primary Care Provider Unavailabl e Allergies Active Allergy Reactions Criticality Noted Date Comments Penicillins Hives High 05/30/2018 Medications No known medications Active Problems Patient Care Coordination No te Formatting of this note migh t be different from the original. PCP Name: Nighat Willingham - Phone #: [phone] Problem Noted Date Diagnosed Date Burn of [...] on file Legal Sex Male 10:07 AM [employer]QU[employer] STEWARD[employer] Gender Identity Not on file Sexual Orientation Not on file Last Filed Vital Signs Vital Sign Reading Time Taken Comments Blood Pressure 92/48 05/30/2018 2:13 PM BANQUET STEWARDESS Pulse - - Temperature - - Respiratory Rate - - Oxygen Saturation - - Inhaled Oxygen Concentration - - Weight 68 kg (150 lb) 05/30/2018 2:13 PM BANQUET STEWARDESS Height 177.8 cm (5' 10) 05/30/2018 2:13 PM BANQUET STEWARDESS Body Mass Index 21.52 05/30/2018 2:13 PM BANQUET STEWARDESS Plan of Treatment Health Maintenance Due Date Last Done Comments DTAP/TDAP/TD VACCINES (1 - Tdap) 1986 HEPATITIS B VACCINES (1 of 3 - 19+ 3-dose series) 03/11 COLORECTAL SCREENING 2012 Colorectal Cancer Screening 2012 FIT-DNA Q 3 years 2012 FIT/FOBT Q 1 year 2012 Flex Sig/CT Colonography Q 5 years 2012 ZOSTER VACCINE (1 of 2) 2017 INFLUENZA VACCINE (#1) 2025 Insurance [id number] DUAL COMPLETE O [facility] [id number]
--- OUTSIDE RECORDS SUMMARY | 2025-04-25 14:45 | XMS_ITS | Clinical Summary ---
Author Organization [facility] Address [address], [address] [address] Phone Care Team Providers Care Release Of Information Clerk Name Role Phone Trung Jana Buckner APRN, STUDY LEAD Primary Care Provider Rodney Cruz MD Unavailable [...] on file Legal Sex Male 8:[address] Gender Identity Not on file Sexual Orientation Not on file Last Filed Vital Signs Vital Sign Reading Time Taken Comments Blood Pressure 110/60 05/10/2023 2:[address] [employer] Pulse 71 05/10/2023 2:[address] [employer] Temperature 36.6 C (97.9 F) 05/10/2023 2:[address] [employer] Respiratory Rate 16 05/10/2023 2:[address] [employer] Oxygen Saturation 100% 05/10/2023 2:[address] [employer] Inhaled Oxygen Concentration - - Weight 94.1 kg (207 lb 6.4 oz) 05/10/2023 2:[address] [employer] Height 177.8 cm (5' 10) 05/10/2023 2:[address] [employer]ICE Body Mass Index 29.76 05/10/2023 2:[address] [employer] Plan of Treatment Health Maintenance Due Date [...] to complete this topic Insurance MEDICARE [facility] MEDICAID [place] Care Teams Release Of Information Clerk Relationship Specialty Start Date End Date Jana Nino APRN, STUDY LEAD [address] [place] [address] PCP - General Advanced Practice Nurse 01/03/23 Rodney Cruz MD [address] [place] [address] Consulting Physician Pulmonary Disease 02/08/23
--- OUTSIDE RECORDS SUMMARY | 2025-04-25 14:45 | XMS_ITS | Clinical Summary ---
Author Organization [facility] Address [address] [place] [address] Care Team Providers Care Pantograph Machine Operator Name Role Phone Renee Barbosa MD Primary Care Provider [phone] Allergies Active Allergy Reactions Criticality Noted Date [...] not available. - obtain full records from residential - patient instructed to bring medications to [...] Type Department Care Team Description 04/14/2025 Telephone [facility] Medical [facility] G[facility]ology at [place] [address] [facility] [address] [place] [address] Lainey Naylor 03/20/2025 Telephone [facility] [address] [facility] [address] [place] [address] Jacy Acharya MD 03/03/2025 10:00 AM CDT Office Visit [facility] Medical [facility] at [place] [address] [facility] [address] [place] [address] Renee Barbosa MD History of multiple cerebrovascular accidents (CVAs) (Primary Dx); Palpitations; PFO (patent foramen ovale) 03/03/2025 Orders Only [facility] Res[facility] at [address] [place] [address] Renee Barbosa MD Cerebrovascular accident (CVA), unspecified mechanism (HCC) (Primary Dx); Paralysis of left lower extremity (HCC); Paralysis of upper extremity (HCC) 03/03/2025 Orders Only [facility] Res[facility] at [address] [place] [address] Renee Barbosa MD Palpitations; Cerebrovascular accident (CVA), unspecified mechanism (HCC) 01/29/2025 [facility] Out[facility] Accountable Care Organization [address] [place] [address] Kosta Stewart MA 01/26/2025 9:32 AM CDT - 01/26/2025 12:00 PM CDT Emergency [facility] Emergency Department [address] [place] [address] Jose Luis Ayala MD Minor head injury, [...] on file 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 Gender Identity Not on file Sexual Orientation [...] Description 12/22/2025 9:30 AM CDT Hospital Encounter [facility] [address] [place] [address] Francisco Javier Owusu, [address] [facility] [address] [place] [address] 12/22/2025 9:30 AM CDT - 12/22/2025 10:00 AM CDT Surgery [facility] [address] [place] [address] Francisco Javier Owusu, [address] [facility] [address] [place] [address] COLONOSCOPY Scheduled Procedures Name Priority Associated Diagnoses Date/Ti me COLONOSCOPY Encounter for screening colonoscopy 12/22/2025 9:30 AM CDT Health Maintenance Due Date Last Done Comments Colon Cancer Screening-DNA Stool 1965 Prostate Cancer Screening-PSA 1965 DTaP/Tdap/Td Vaccine [...] Gustavo Gallagher M.D. CH: LOVELY Report ID: [id number] Reading Location: [id number] Procedure Note Gustavo Gallagher MD - 01/26/2025 [...] by Gustavo Gallagher M.D. CH: Report ID: [id number] Reading Location: [id number] Jose Luis Ayala MD IMG XR PROCEDURES [...] Gustavo Gallagher M.D. CH: LOVELY Report ID: [id number] Reading Location: [id number] Procedure Note Gustavo Gallagher MD - 01/26/2025 EXAM DESCRIPTION: XR SHOULDER LEFT 2 OR MORE VIEWS REASON FOR STUDY: fall Best obtainable images done in wheelchair. Pt unable to stand Pt in w/security director ED with cc of L neck/L [...] Gustavo Gallagher M.D. CH: LOVELY Report ID: [id number] Reading Location: [id number] Jose Luis Ayala MD IMG XR PROCEDURES [...] Gustavo Gallagher M.D. CH: LOVELY Report ID: [id number] Reading Location: [id number] Procedure Note Gustavo Gallagher MD - 01/26/2025 [...] Gustavo Gallagher M.D. CH: LOVELY Report ID: [id number] Reading Location: [place] [address] Jose Luis Ayala MD IMG CT PROCEDURES [...] BLOOD ORDERABLES Final Res ult [facility] [place]) [address] [facility] Department [place] [address] * Differential, auto (01/26/2025 10:13 [...] Final Res ult [facility] ([place]) [address] [facility] [employer] [place] [address] * (ABNORMAL) CBC with auto differential (01/26/2025 [...] 0.00 0.00 - 0.01 K/cumm [facility] ([place]) Blood 01/26/2025 10:1 3 AM CDT 01/26/2025 10:16 AM CDT Jose Luis Ayala MD LAB BLOOD ORDERABLES Final Res ult [facility] ([place]) [address] [facility] [place] [place] [address] * (ABNORMAL) Protime-INR (01/26/2025 10:13 AM CDT) PT 15.8(H) 10.2 - 13.5 sec [facility] ([place]) INR 1.41(H) 0.90 - 1.20 [facility] ([place]) Comment: Interpretive data Oral anticoagulant [...] LAB BLOOD ORDERABLES Final Res ult [facility] ([place]) [address] [facility] Department [place] [address] * (ABNORMAL) Comprehensive metabolic panel (01/26/2025 10:13 AM CDT) Sodium 144 135 - 145 mmol/L [facility] ([place] Potassium, pl 4.1 3.3 - 4.9 mmol/L [facility] ([place]) Chloride 104 97 - 110 mmol/L [facility] ([place]) CO2 28 22 - 32 mmol/L [facility] ([place]) Anion gap 12 2 - 15 mmol/L [facility] ([place]) BUN 9 6 - 25 mg/dL [facility] ([place]) Creatinine 0.76(L) 0.80 - 1.30 mg/dL [facility] ([place]) Glucose 108 70 - 199 mg/dL [facility] ([place]) Comment: Interpretive Data Fasting glucose [...] classification and Diagnosis of Diabetes Diabetes Care 202; 46: S19-S40. Current interpretive data was last [...] MD LAB BLOOD ORDERABLES Final Res ult [facility] ([place]) [address] [facility] Department [place] [address] * Hepatitis panel, acute Blood (10/08/2024 10:20 AM CDT) Hep A IgM Nonreactive Nonreactive Hep B core IgM Nonreactive Nonreactive [facility] Hep C Ab Nonreactive Nonreactive [facility] Comment:Antibodies to HCV no t detected. Does NOT exclude the possibility of recent exposure to HCV. Current interpretive data was last revised on 22 HepBsAg Nonreactive Nonreactive [facility] Blood 10/08/2024 10:2 0 AM CDT 10/08/2024 10:31 AM CDT us Reba Biswas NP LAB MICROBIOLOGY - GENERAL O RDERABLES Final Result [facility] [address] [facility] [place] [address] from Last 3 Months or Most Recently Relevant to Health Maintenance Insurance [facility] MEDICARE ADVANTAGE [facility] Address: [address] [place], [place] [id number] [facility] Address: [address] [address] [facility] Address: [address] [address] IDPA Advance Directives For more information, please contact: [phone] * Full Code (Latest Code Status on File) Date Activated Date Inactivated Comments 10/06/2024 10:58 PM 10/21/2024 8:34 PM Care Teams Pantograph Machine Operator Relationship Specialty Start Date End Date Renee Barbosa MD [address] [facility] [address] [place] [id number] PCP - General Family Medicine 03/03/25
--- NOTE | 2025-04-25 15:15 | ADMGEN ---
This patient, Alfredo Ott, was admitted to 2nd Floor Room 204-1. Patient/family oriented to hospital policies and general routines including ID bracelet, bed and alarms, visiting hours, pain management, procedures, bathroom and other care routines, personal items, smoking policy, room service/diet, and visiting hours. Information on how to activate the Rapid Response Team has been discussed. Patient/Family are encouraged to report perceived risks to care and to ask questions if they do not understand what they are told or what they should do.
[2025-04-25 16:00] VITALS: BP 126/70; PULSE 70; RESP 18; TEMP 37; O2SAT 96
[2025-04-25] MEDS: MONTELUKAST SODIUM 10 MG TABLET PO (17:25)
[2025-04-25] MEDS: GABAPENTIN 300 MG CAPSULE PO (17:25)
[2025-04-25] MEDS: APIXABAN 2.5 MG TABLET 5 MG BY MOUTH (21:34)
[2025-04-25] MEDS: BACLOFEN 10 MG TABLET PO (21:34)
[2025-04-26] VITALS: BP 103/60; PULSE 56; RESP 16; TEMP 36.4; O2SAT 97
[2025-04-26 08:00] VITALS: BP 129/81; PULSE 69; RESP 18; TEMP 36.6; O2SAT 99
[2025-04-26] MEDS: APIXABAN 2.5 MG TABLET 5 MG BY MOUTH ×2 (09:32→20:44)
[2025-04-26] MEDS: ATORVASTATIN 40 MG TABLET PO (09:32)
[2025-04-26] MEDS: ASPIRIN 81 MG ENTERIC TABLET PO (09:32)
[2025-04-26] MEDS: PANTOPRAZOLE SOD SESQUIHYDRATE 20 MG TAB PO (09:32)
[2025-04-26] MEDS: GABAPENTIN 300 MG CAPSULE PO ×3 (09:32→17:00)
[2025-04-26] MEDS: SERTRALINE HCL 25 MG TABLET PO (09:32)
[2025-04-26 16:00] VITALS: BP 110/66; PULSE 67; RESP 16; TEMP 36.9; O2SAT 99
--- NOTE | 2025-04-26 16:31 | PM.IMHP ---
H&P: HPI History of Present Illness Date/Time: 04/26/25 16:31 Chief Complaint: CVA Narrative: Patient is a 60 year old male with PMH of CVAs. Patint was admitted at [facility] from 04/20/2025 to 04/25/2025 due to facial drooping, severe weakness on the left side and hypoglycemia (BS 38). CT Head showed a large subacute infarct involving the right MCA territory. Brain MRI showed large right MCA distribution infarction probably representing early chronic stage, no hemorrhage or acute ischemic event identified. Neurology was consulted. Patient had a venous doppler of lower extremity and a DVT was identified. Patient was treated with Lovenox and transitioned to PO Eliquis prior to discharge. Echo with EF 60-65% and no significant valvular abnormalities, no evidence of shunt. Patient was deemed to have not had an acute stroke and felt that his symptoms were related to hypoglycemic event. Patient was diagnosed with pneumonia prior to discharge and was started on IV antibiotics. We will continue antibiotics here at [place]. Patient was discharged to [facility] for rehab services. Review of Systems Review of Systems: All systems reviewed & are unremarkable except as noted in HPI and below PMFSH Family History Family History Father Bone cancer Social History Social History Smoking status: Light tobacco smoker Tobacco type: cigarettes and e-cigarettes/vaping Alcohol intake: former Substance use: never Substance use type: does not use Lack of Transportation: No Lack of Food: Never True Current Housing: I Have Housing Concerned About Future Housing: No Difficulty Paying Gas/Electric Bills: No Difficulty Paying for Meds: No Currently Unemployed: No Education: High School Diploma/GED Difficulty w/ Childcare or Family Care: No Spiritual care concerns: No Meds Home Medications and Allergies Home Medications ?Medication ?Instructions ?Recorded ?Confirmed ?Type atorvastatin 40 mg tablet 40 mg PO DAILY 04/20/25 04/25/25 History baclofen 10 mg tablet 10 mg PO Q6H PRN muscle spasm 04/20/25 04/25/25 History fluoxetine 20 mg capsule 20 mg PO DAILY 04/20/25 04/25/25 History gabapentin 300 mg capsule 300 mg PO .TID 04/20/25 04/25/25 History sertraline 25 mg tablet 25 mg PO DAILY 04/20/25 04/25/25 History montelukast 10 mg tablet 10 mg PO QPM 04/22/25 04/25/25 History pantoprazole 20 mg tablet,delayed 20 mg PO DAILY 04/22/25 04/25/25 History release acetaminophen 325 mg tablet 650 mg (2 x 325 mg) PO Q4H PRN 04/25/25 04/25/25 Rx Mild Pain (1-3) Or Fever #30 tabs apixaban 5 mg tablet (Eliquis) See Rx Instructions .Route 04/25/25 04/25/25 Rx .COMPLEX #60 tabs aspirin 81 mg tablet,delayed 81 mg PO QAM #30 tabs 04/25/25 04/25/25 Rx release azithromycin 500 mg tablet 500 mg PO ONCE #1 tablet 04/25/25 04/25/25 Rx cefdinir 300 mg capsule 300 mg PO Q12H #6 caps 04/25/25 04/25/25 Rx polyethylene glycol 3350 17 gram 17 g PO QAM PRN Constipation #30 ea 04/25/25 04/25/25 Rx oral powder packet (Miralax) ramelteon 8 mg tablet 8 mg PO DAILY PRN insomnia #30 tabs 04/25/25 04/25/25 Rx Allergies Allergy/AdvReac Type Severity Reaction Status Date / Time Penicillins Allergy Mild HIVES Verified 04/25/25 14:46 Vital Signs Vital Signs - 24 hr 04/26/25 00:00 04/26/25 08:00 Temperature 97.5 F L 97.9 F Pulse Rate 56 L 69 Respiratory Rate 16 18 Blood Pressure 103/60 129/81 Pulse Oximetry 97 99 Oxygen Delivery Room Air Room Air Exam Const: General: comfortable and no acute distress HENMT: Face/Nose/Sinus: Normal nares present Mouth: Yes moist mucous membranes Other: left facial droop noted Eyes: General: appearance normal, both eyes and all related structures Sclera: sclerae normal Resp: Effort & Inspection: normal respiratory effort Auscultation: clear to auscultation bilaterally Cardio: Rate: regular rate Rhythm: regular rhythm GI: GI Palp: Yes Soft to palpation Auscultation: normal bowel sounds Skin: General skin exam: normal color and no rashes or lesions noted Neuro: Other: left sided weakness upper and lower extremity, left facial droop noted, speech slightly slurred Extrem: General: normal to inspection Psych: Mental Status: mental status grossly normal Affect: normal affect Assessment and Plan Assessment and plan (1) Ischemic stroke: Code(s): I63.9 - Cerebral infarction, unspecified Status: Acute Assessment and Plan: presented with left facial droop, extreme left sided weakness, blood sugar 38 s/p Head CT s/p Head and Neck CTA s/p Brain MRI s/p Neurology consult continue aspirin, atorvastatin, Eliquis admission for Swing bed for PT/OT (2) Hypoglycemia: Code(s): E16.2 - Hypoglycemia, unspecified Status: Acute Assessment and Plan: BS 38 when EMS arrived resolved blood sugars were stable in the hospital no hx of DM, Hgba1c 5.1% (3) Left leg pain: Code(s): M79.605 - Pain in left leg Status: Acute Assessment and Plan: s/p x-rays with no acute fractures pain control (4) Left shoulder pain: Code(s): M25.512 - Pain in left shoulder Status: Acute Assessment and Plan: s/p x-rays with no acute fractures pain control (5) Pneumonia: Code(s): J18.9 - Pneumonia, unspecified organism Status: Acute Assessment and Plan: s/p IV antibiotics continue PO Cefdinir monitor respiratory status Quality VTE Prophylaxis VTE prophylaxis: pharmacologic ordered
[2025-04-26] MEDS: MONTELUKAST SODIUM 10 MG TABLET PO (17:00)
[2025-04-26] MEDS: BACLOFEN 10 MG TABLET PO (17:00)
[2025-04-27] VITALS: BP 110/82; PULSE 69; RESP 16; TEMP 36.2; O2SAT 99
[2025-04-27 08:00] VITALS: BP 117/70; PULSE 81; RESP 18; TEMP 36.4; O2SAT 100
[2025-04-27] MEDS: GABAPENTIN 300 MG CAPSULE PO ×3 (08:09→16:59)
[2025-04-27] MEDS: SERTRALINE HCL 25 MG TABLET PO (08:09)
[2025-04-27] MEDS: PANTOPRAZOLE SOD SESQUIHYDRATE 20 MG TAB PO (08:09)
[2025-04-27] MEDS: BACLOFEN 10 MG TABLET PO ×2 (08:09→21:02)
[2025-04-27] MEDS: ASPIRIN 81 MG ENTERIC TABLET PO (08:09)
[2025-04-27] MEDS: APIXABAN 2.5 MG TABLET 5 MG BY MOUTH ×2 (08:09→21:01)
[2025-04-27] MEDS: ATORVASTATIN 40 MG TABLET PO (08:09)
[2025-04-27] MEDS: CEFDINIR 300 MG CAPSULE PO ×2 (09:45→21:01)
--- NOTE | 2025-04-27 15:54 | PC.NURSE ---
Case management spoke with cousin on phone, who reported concerns that patient was more slurred in speech this AM (when speaking to him on the phone. Assessed by service writer advisor and 2nd nurse, Rosey, whom had cared for patient previously, no change noted in speech pattern, remains in stable condition.
[2025-04-27 16:00] VITALS: BP 113/57; PULSE 70; RESP 17; TEMP 36.6; O2SAT 99
[2025-04-27] MEDS: MONTELUKAST SODIUM 10 MG TABLET PO (16:59)
[2025-04-27] MEDS: ACETAMINOPHEN 325 MG TABLET 650 MG PO (21:01)
[2025-04-28] VITALS (8 sets, daily range): BP systolic 106–121; BP diastolic 48–80; PULSE 56–86; RESP 18–20; TEMP 36.6–37.4; O2SAT 96–99
[2025-04-28] MEDS: ATORVASTATIN 40 MG TABLET PO (08:02)
[2025-04-28] MEDS: BACLOFEN 10 MG TABLET PO ×3 (08:02→20:57)
[2025-04-28] MEDS: APIXABAN 2.5 MG TABLET 5 MG BY MOUTH ×2 (08:02→19:52)
[2025-04-28] MEDS: CEFDINIR 300 MG CAPSULE PO ×2 (08:02→19:52)
[2025-04-28] MEDS: GABAPENTIN 300 MG CAPSULE PO ×3 (08:02→17:03)
[2025-04-28] MEDS: SERTRALINE HCL 25 MG TABLET PO (08:02)
[2025-04-28] MEDS: ACETAMINOPHEN 325 MG TABLET 650 MG PO ×3 (08:02→19:52)
[2025-04-28] MEDS: PANTOPRAZOLE SOD SESQUIHYDRATE 20 MG TAB PO (08:02)
[2025-04-28] MEDS: ASPIRIN 81 MG ENTERIC TABLET PO (08:02)
--- NOTE | 2025-04-28 13:15 | PC.NURSE ---
PT with patient attempting to walk, patient begins to c/o dizziness, and chest pain, VS: P68, SPO2 97% on room air, BP 114/80, R 20. Assisted to bed with PT and nurse. POURED [employer]EM[employer] here, new orders received.
--- NOTE | 2025-04-28 13:27 | ECG_ITS ---
Test Date: 2025-04-28 13:39:48 Measurements Intervals [place] Rate: 61 P: 75 [place]: 139 QRS: 69 QRSD: 105 T: 66 QT: 417 QTc: 422 Interpretive Statements SINUS RHYTHM LOW QRS VOLTAGE IN PRECORDIAL LEADS [QRS DEFLECTION < 1.0 mV IN CHEST LEADS] NONSPECIFIC ST ABNORMALITY ABNORMAL ECG Electronically Signed On 04-28-2025 16:04:13 PIT RECORDER by Ronald Tiwari M.D.
[2025-04-28] MEDS: NITROGLYCERIN SL 0.4 MG TABLET SUBLINGUAL (13:43)
[2025-04-28 13:48] LABS: Hematocrit 37.9 % (40.0-54.0); Hemoglobin 12.5 g/dL (14.0-18.0); Immature Granulocyte Percent A 0.3 % (0.0-0.0); Lymphocytes Absolute Auto 1.20 K/mm3 (1.10-4.50); Mean Corpuscular HGB Conc 33.0 g/dL (32-36); Mean Corpuscular Hemoglobin 31.3 pg (27.0-31.0); Mean Corpuscular Volume 95.0 fL (78.0-102.0); Nucleated Red Blood Cells Absolute Auto 0.00 K/mm3 (0.00-0.00); Nucleated Red Blood Cells Perc 0.0 % (0-0.0); Platelet Count Result 170 K/mm3 (150-420); Red Blood Count 3.99 M/mm3 (4.70-6.10); White Blood Count 6.6 K/mm3 (4.8-10.8)
[2025-04-28 14:03] LABS: Alanine Aminotransferase 36 U/L (6-50); Albumin Level 3.9 g/dL (3.5-5.1); Alkaline Phosphatase 69 U/L (38-126); Anion Gap 9 mmol/L (4-12); Aspartate Amino Transferase 38 U/L (17-59); Bilirubin,Total 0.3 mg/dL (0.2-1.3); Blood Urea Nitrogen 11 mg/dL (9-20); Calcium 8.8 mg/dL (8.4-10.2); Carbon Dioxide 25 mmol/L (22-30); Chloride 108 mmol/L (98-107); Estimated CRCL calculation 92 ml/min; Estimated Glomerular Filt Rate > 60; Glucose 114 mg/dL (65-110); Osmolality Calculated 294 mOsm/kg (285-295); Potassium 4.2 mmol/L (3.4-5.0); Sodium 142 mmol/L (137-145); Total Protein 6.2 g/dL (6.3-8.2)
--- NOTE | 2025-04-28 14:05 | P.PNIM_ITS ---
Progress Note: A&P Assessment and Plan (1) Ischemic stroke: Code(s): I63.9 - Cerebral infarction, unspecified Status: Acute Assessment and Plan: presented with left facial droop, extreme left sided weakness, blood sugar 38 s/p Head CT s/p Head and Neck CTA s/p Brain MRI s/p Neurology consult continue aspirin, atorvastatin, Eliquis admission for Swing bed for PT/OT (2) Hypoglycemia: Code(s): E16.2 - Hypoglycemia, unspecified Status: Acute Assessment and Plan: BS 38 when EMS arrived resolved blood sugars were stable in the hospital no hx of DM, Hgba1c 5.1% (3) Left leg pain: Code(s): M79.605 - Pain in left leg Status: Acute Assessment and Plan: s/p x-rays with no acute fractures pain control (4) Left shoulder pain: Code(s): M25.512 - Pain in left shoulder Status: Acute Assessment and Plan: s/p x-rays with no acute fractures pain control (5) Pneumonia: Code(s): J18.9 - Pneumonia, unspecified organism Status: Acute Assessment and Plan: s/p IV antibiotics continue PO Cefdinir monitor respiratory status (6) Chest pain: Code(s): R07.9 - Chest pain, unspecified Status: Acute Plan patient developed dizziness and chest pain while working with physical therapy patient rates the pain 9/10 and says it is crushing without dyspnea, nausea or radiation VS stable stat EKG done without ST changes troponin negative , 3 hour repeat ordered CBC and CMP without acteu changes GI cocktail ordered Subjective Date/time seen: 04/28/25 14:05 Interval history: Patient seen today for an acute visit. Patient with complaints of sternal chest pain, rated 9/10 and described it as crushing. Patient denied dyspnea, nausea or referred pain. Per nursing patient was working with physical therapy and was walkiing when he started complaining of dizziness and chest pain. He wanted to sit down immediately and they were able to lower him to the bed. EKG obtained without acute ST changes. Nitro SL ordered. VS were stable. Troponin and lab work ordered. Troponin negative, 3 hour repeat ordered. GI cocktail ordered. Review of Systems Review of Systems: All systems reviewed & are unremarkable except as noted in HPI and below Exam Const: General: comfortable and no acute distress HENMT: Face/Nose/Sinus: Normal nares present Mouth: Yes moist mucous membranes Other: left facial droop noted Eyes: General: appearance normal, both eyes and all related structures Sclera: sclerae normal Resp: Effort & Inspection: normal respiratory effort Auscultation: clear to auscultation bilaterally Cardio: Rate: regular rate Rhythm: regular rhythm GI: Auscultation: normal bowel sounds Skin: General skin exam: normal color and no rashes or lesions noted Neuro: Other: left sided weakness upper and lower extremity, left facial droop noted, speech slightly slurred Extrem: General: normal to inspection Psych: Mental Status: mental status grossly normal Affect: normal affect Objective Data Vital Signs Vital Signs: Vital Signs - 24 hr 04/27/25 16:00 04/28/25 00:00 04/28/25 08:00 Temperature 97.9 F 99.3 F Pulse Rate 70 63 67 Respiratory Rate 17 18 18 Blood Pressure 113/57 L 107/79 Pulse Oximetry 99 96 98 Oxygen Delivery Room Air Room Air Room Air 04/28/25 08:00 04/28/25 13:15 04/28/25 13:45 Temperature 97.8 F 98.0 F Pulse Rate 67 68 63 Respiratory Rate 18 20 20 Blood Pressure 106/53 L 114/80 107/48 L Pulse Oximetry 98 97 98 Oxygen Delivery Room Air Room Air Room Air 04/28/25 13:57 Temperature 98.3 F Pulse Rate 56 L Respiratory Rate 20 Blood Pressure 110/68 Pulse Oximetry 99 Oxygen Delivery Room Air Intake/Output Intake/Output: Intake & Output 04/25/25 04/26/25 04/27/25 04/28/25 23:59 23:59 23:59 23:59 Intake Total 515 1040 1580 1460 Output Total 216 627 3076 1000 Balance 240 512 -2302 278 Meds/Results Medications: Active Medications Generic Name Dose Route Start Last Admin Trade Name Freq PRN Reason Stop Dose Admin Acetaminophen 650 mg 04/25/25 15:45 04/28/25 13:53 Acetaminophen 325 Mg Tablet PO 650 mg Q4H PRN Administration Mild Pain (1-3) or Fever Apixaban 5 mg 04/25/25 21:00 04/28/25 08:02 Apixaban 2.5 Mg Tablet BY MOUTH 5 mg Q12HR VALENCIA Administration Aspirin 81 mg 04/26/25 09:00 04/28/25 08:02 Aspirin 81 Mg Enteric Tablet PO 81 mg QAM VALENCIA Administration Atorvastatin Calcium 40 mg 04/26/25 09:00 04/28/25 08:02 Atorvastatin 40 Mg Tablet PO 40 mg DAILY VALENCIA Administration Baclofen 10 mg 04/25/25 15:45 04/28/25 13:53 Baclofen 10 Mg Tablet PO 10 mg Q6H PRN Administration Muscle Spasm Cefdinir 300 mg 04/27/25 09:00 04/28/25 08:02 Cefdinir 300 Mg Capsule PO 300 mg Q12HR VALENCIA Administration Al Hydrox/Mg Hydrox/ 0 ml 04/28/25 14:02 Simethicone 30 ml/ Belladonna PO 04/28/25 14:03 Alkaloids/Phenobarbital 32.4 ONCE STA mg/ Lidocaine HCl 15 ml Fluoxetine HCl 20 mg 04/26/25 09:00 04/28/25 08:02 Fluoxetine Hcl 20 Mg Capsule PO 20 mg DAILY VALENCIA Administration Gabapentin 300 mg 04/25/25 17:00 04/28/25 12:02 Gabapentin 300 Mg Capsule PO 300 mg TID VALENCIA Administration Montelukast Sodium 10 mg 04/25/25 18:00 04/27/25 16:59 Montelukast Sodium 10 Mg Tablet PO 10 mg QPM VALENCIA Administration Nitroglycerin 0.4 mg 04/28/25 13:28 04/28/25 13:43 Nitroglycerin Sl 0.4 Mg Tablet SUBLINGUAL 0.4 mg Q5MIN PRN Administration Chest Pain Pantoprazole Sodium 20 mg 04/26/25 09:00 04/28/25 08:02 Pantoprazole Sod Sesquihydrate 20 Mg Tab PO 20 mg DAILY VALENCIA Administration Polyethylene Glycol 17 gm 04/25/25 15:45 Polyethylene Glycol 3350 17 Gm Powd.Pack PO QAM PRN Constipation Sertraline HCl 25 mg 04/26/25 09:00 04/28/25 08:02 Sertraline Hcl 25 Mg Tablet PO 25 mg DAILY VALENCIA Administration Labs Labs: Laboratory Results - last 24 hr 04/28/25 13:39 WBC 6.6 RBC 3.99 L Hgb 12.5 L Hct 37.9 L MCV 95.0 MCH 31.3 H MCHC 33.0 RDW 12.9 Plt Count 170 MPV 10.0 Immature Gran % (Auto) 0.3 H Neut % (Auto) 66.2 Lymph % (Auto) 18.2 [place] % (Auto) 10.2 Eos % (Auto) 4.2 Baso % (Auto) 0.9 Lymph # (Auto) 1.20 [place] # (Auto) 0.67 Eos # (Auto) 0.28 Baso # (Auto) 0.06 Abs Immat Gran (auto) 0.02 H Absolute Neuts (auto) 4.37 Absolute Nucleated RBC 0.00 Nucleated RBC % 0.0 Quality VTE Prophylaxis VTE prophylaxis: pharmacologic ordered
[2025-04-28 14:15] LABS: Troponin I < 0.012 ng/mL (0.000-0.034)
[2025-04-28] MEDS: MAG HYDROX/ALUMINUM HYD/SIMETH 30 ML, PHENobarb/HYOSCY/ATROPINE/SCOP 32.4 MG, LIDOCAINE... PO (14:18)
[2025-04-28] MEDS: MONTELUKAST SODIUM 10 MG TABLET PO (17:03)
[2025-04-28 17:19] LABS: Troponin I < 0.012 ng/mL (0.000-0.034)
[2025-04-29] VITALS: BP 121/65; PULSE 57; RESP 18; TEMP 36.9; O2SAT 98
--- NOTE | 2025-04-29 00:25 | PC.NURSE ---
Pt asleep and no signs of discomfort noted.
--- NOTE | 2025-04-29 01:41 | PC.NURSE ---
775 ml of clear, bailey urine emptied from urinal.
--- NOTE | 2025-04-29 02:05 | PC.NURSE ---
Pt asleep and no signs of discomfort noted.
--- NOTE | 2025-04-29 06:24 | PC.NURSE ---
Pt asleep on his side.
[2025-04-29 08:00] VITALS: BP 111/66; PULSE 58; RESP 18; TEMP 36; O2SAT 98
[2025-04-29] MEDS: APIXABAN 2.5 MG TABLET 5 MG BY MOUTH ×2 (09:08→20:56)
[2025-04-29] MEDS: ATORVASTATIN 40 MG TABLET PO (09:08)
[2025-04-29] MEDS: SERTRALINE HCL 25 MG TABLET PO (09:08)
[2025-04-29] MEDS: ASPIRIN 81 MG ENTERIC TABLET PO (09:08)
[2025-04-29] MEDS: GABAPENTIN 300 MG CAPSULE PO (09:08)
[2025-04-29] MEDS: PANTOPRAZOLE SOD SESQUIHYDRATE 20 MG TAB PO (09:08)
[2025-04-29] MEDS: CEFDINIR 300 MG CAPSULE PO ×2 (09:08→20:56)
[2025-04-29] MEDS: BACLOFEN 10 MG TABLET PO ×2 (09:15→20:57)
[2025-04-29 10:22] VITALS: BP 112/62
--- NOTE | 2025-04-29 10:22 | PM.EVENT ---
Event Note Event Note Event Note: patient with episode dizziness and chest pain yesterday troponins were negative x3 EKGs with no ST/ T elevations or changes patient's BP has been running low will reduced his gabapentin 200 mg t.i.d. orthostatics pending.
[2025-04-29] MEDS: GABAPENTIN 100 MG CAPSULE PO ×2 (12:59→17:07)
[2025-04-29 16:00] VITALS: BP 106/63; PULSE 56; RESP 20; TEMP 36.3; O2SAT 99
[2025-04-29] MEDS: MONTELUKAST SODIUM 10 MG TABLET PO (17:07)
[2025-04-29 20:00] VITALS: PULSE 67; RESP 18; O2SAT 96
[2025-04-30] VITALS: BP 108/59; PULSE 67; RESP 18; TEMP 36.9; O2SAT 96
[2025-04-30 08:00] VITALS: BP 111/48; PULSE 58; RESP 20; TEMP 36; O2SAT 96
[2025-04-30] MEDS: APIXABAN 2.5 MG TABLET 5 MG BY MOUTH ×2 (08:15→21:29)
[2025-04-30] MEDS: GABAPENTIN 100 MG CAPSULE PO ×3 (08:15→17:55)
[2025-04-30] MEDS: SERTRALINE HCL 25 MG TABLET PO (08:16)
[2025-04-30] MEDS: CEFDINIR 300 MG CAPSULE PO ×2 (08:16→21:29)
[2025-04-30] MEDS: PANTOPRAZOLE SOD SESQUIHYDRATE 20 MG TAB PO (08:16)
[2025-04-30] MEDS: ATORVASTATIN 40 MG TABLET PO (08:16)
[2025-04-30] MEDS: ASPIRIN 81 MG ENTERIC TABLET PO (08:16)
[2025-04-30 16:00] VITALS: BP 114/64; RESP 18; TEMP 36.3
[2025-04-30 16:30] VITALS: PULSE 64; O2SAT 97
[2025-04-30] MEDS: MONTELUKAST SODIUM 10 MG TABLET PO (17:55)
[2025-04-30 20:00] VITALS: PULSE 60; RESP 16; O2SAT 96
[2025-05-01] VITALS: BP 111/70; PULSE 60; RESP 16; TEMP 36.4; O2SAT 96
[2025-05-01 07:35] VITALS: BP 110/55; PULSE 65; RESP 16; TEMP 36.4; O2SAT 97
[2025-05-01 08:30] VITALS: PULSE 65; RESP 16; O2SAT 97
[2025-05-01] MEDS: ASPIRIN 81 MG ENTERIC TABLET PO (08:45)
[2025-05-01] MEDS: ATORVASTATIN 40 MG TABLET PO (08:45)
[2025-05-01] MEDS: APIXABAN 2.5 MG TABLET 5 MG BY MOUTH ×2 (08:45→20:14)
[2025-05-01] MEDS: PANTOPRAZOLE SOD SESQUIHYDRATE 20 MG TAB PO (08:45)
[2025-05-01] MEDS: GABAPENTIN 100 MG CAPSULE PO ×3 (08:45→16:36)
[2025-05-01] MEDS: SERTRALINE HCL 25 MG TABLET PO (08:45)
[2025-05-01] MEDS: CEFDINIR 300 MG CAPSULE PO ×2 (08:45→20:15)
[2025-05-01 16:35] VITALS: BP 112/55; PULSE 59; RESP 16; TEMP 36.3; O2SAT 97
[2025-05-01] MEDS: ACETAMINOPHEN 325 MG TABLET 650 MG PO (16:36)
[2025-05-01] MEDS: MONTELUKAST SODIUM 10 MG TABLET PO (17:05)
--- NOTE | 2025-05-01 19:20 | PC.NURSE ---
ASSUMED CARE. PATIENT CURRENTLY SITTING UP IN CHAIR. DOES NOT WANT TO GO TO THE BED AT THIS TIME. PATIENT HAS CALL LIGHT IN REACH. NO NEEDS VOICED
--- NOTE | 2025-05-01 21:53 | PC.NURSE ---
ASSISTED PATIENT X 1 WITH WALKER AND GAIT BELT TO BED. ALL PERSONAL ITEMS ARE IN REACH. CALL LIGHT IN REACH
[2025-05-02] VITALS: BP 112/62; PULSE 83; RESP 18; TEMP 36.1; O2SAT 94
[2025-05-02 08:00] VITALS: BP 104/57; PULSE 66; RESP 16; TEMP 36.4; O2SAT 98
[2025-05-02] MEDS: CEFDINIR 300 MG CAPSULE PO ×2 (09:42→21:17)
[2025-05-02] MEDS: SERTRALINE HCL 25 MG TABLET PO (09:42)
[2025-05-02] MEDS: BACLOFEN 10 MG TABLET PO ×2 (09:42→21:17)
[2025-05-02] MEDS: ATORVASTATIN 40 MG TABLET PO (09:42)
[2025-05-02] MEDS: PANTOPRAZOLE SOD SESQUIHYDRATE 20 MG TAB PO (09:42)
[2025-05-02] MEDS: APIXABAN 2.5 MG TABLET 5 MG BY MOUTH ×2 (09:42→21:17)
[2025-05-02] MEDS: ASPIRIN 81 MG ENTERIC TABLET PO (09:42)
[2025-05-02] MEDS: GABAPENTIN 100 MG CAPSULE PO ×3 (09:43→17:59)
[2025-05-02 16:00] VITALS: BP 110/60; PULSE 68; RESP 20; TEMP 36.4; O2SAT 96
[2025-05-02] MEDS: MONTELUKAST SODIUM 10 MG TABLET PO (18:00)
[2025-05-02 20:00] VITALS: PULSE 58; RESP 20; O2SAT 96
[2025-05-03] VITALS: BP 103/57; PULSE 56; RESP 16; TEMP 36.6; O2SAT 96
[2025-05-03 08:00] VITALS: BP 114/54; PULSE 56; RESP 20; TEMP 36.4; O2SAT 100
[2025-05-03] MEDS: GABAPENTIN 100 MG CAPSULE PO ×3 (09:24→17:59)
[2025-05-03] MEDS: APIXABAN 2.5 MG TABLET 5 MG BY MOUTH ×2 (09:24→20:44)
[2025-05-03] MEDS: SERTRALINE HCL 25 MG TABLET PO (09:25)
[2025-05-03] MEDS: CEFDINIR 300 MG CAPSULE PO ×2 (09:25→20:43)
[2025-05-03] MEDS: BACLOFEN 10 MG TABLET PO (09:25)
[2025-05-03] MEDS: PANTOPRAZOLE SOD SESQUIHYDRATE 20 MG TAB PO (09:25)
[2025-05-03] MEDS: ATORVASTATIN 40 MG TABLET PO (09:25)
[2025-05-03] MEDS: ASPIRIN 81 MG ENTERIC TABLET PO (09:25)
[2025-05-03 16:00] VITALS: BP 104/53; PULSE 54; RESP 20; TEMP 36.4; O2SAT 100
[2025-05-03] MEDS: MONTELUKAST SODIUM 10 MG TABLET PO (17:59)
[2025-05-04] VITALS: BP 112/59; PULSE 50; RESP 18; TEMP 36.3; O2SAT 99
[2025-05-04 08:00] VITALS: BP 101/48; PULSE 56; RESP 18; TEMP 36.6; O2SAT 97
[2025-05-04] MEDS: ATORVASTATIN 40 MG TABLET PO (09:16)
[2025-05-04] MEDS: GABAPENTIN 100 MG CAPSULE PO ×3 (09:16→17:56)
[2025-05-04] MEDS: BACLOFEN 10 MG TABLET PO (09:16)
[2025-05-04] MEDS: CEFDINIR 300 MG CAPSULE PO ×2 (09:16→20:30)
[2025-05-04] MEDS: APIXABAN 2.5 MG TABLET 5 MG BY MOUTH ×2 (09:16→20:30)
[2025-05-04] MEDS: ASPIRIN 81 MG ENTERIC TABLET PO (09:16)
[2025-05-04] MEDS: PANTOPRAZOLE SOD SESQUIHYDRATE 20 MG TAB PO (09:16)
[2025-05-04] MEDS: SERTRALINE HCL 25 MG TABLET PO (09:17)
[2025-05-04 16:00] VITALS: BP 105/60; PULSE 50; RESP 18; TEMP 36.6; O2SAT 99
[2025-05-04] MEDS: MONTELUKAST SODIUM 10 MG TABLET PO (17:56)
[2025-05-05] VITALS: BP 102/54; PULSE 51; RESP 18; TEMP 36.4; O2SAT 97
[2025-05-05 07:20] LABS: Hematocrit 38.6 % (40.0-54.0); Hemoglobin 12.8 g/dL (14.0-18.0); Mean Corpuscular HGB Conc 33.2 g/dL (32-36); Mean Corpuscular Hemoglobin 31.1 pg (27.0-31.0); Mean Corpuscular Volume 93.9 fL (78.0-102.0); Platelet Count Result 166 K/mm3 (150-420); Red Blood Count 4.11 M/mm3 (4.70-6.10); White Blood Count 5.0 K/mm3 (4.8-10.8)
[2025-05-05 07:31] LABS: Alanine Aminotransferase 19 U/L (6-50); Albumin Level 3.9 g/dL (3.5-5.1); Alkaline Phosphatase 78 U/L (38-126); Anion Gap 7 mmol/L (4-12); Aspartate Amino Transferase 20 U/L (17-59); Bilirubin,Total 0.4 mg/dL (0.2-1.3); Blood Urea Nitrogen 13 mg/dL (9-20); Calcium 9.3 mg/dL (8.4-10.2); Carbon Dioxide 31 mmol/L (22-30); Chloride 105 mmol/L (98-107); Estimated CRCL calculation 87 ml/min; Estimated Glomerular Filt Rate > 60; Glucose 93 mg/dL (65-110); Osmolality Calculated 296 mOsm/kg (285-295); Potassium 4.0 mmol/L (3.4-5.0); Sodium 143 mmol/L (137-145); Total Protein 6.4 g/dL (6.3-8.2)
[2025-05-05 07:52] VITALS: BP 106/64; PULSE 56; RESP 18; TEMP 36.3; O2SAT 97
[2025-05-05] MEDS: APIXABAN 2.5 MG TABLET 5 MG BY MOUTH ×2 (08:16→20:34)
[2025-05-05] MEDS: ACETAMINOPHEN 325 MG TABLET 650 MG PO ×2 (08:17→20:33)
[2025-05-05] MEDS: SERTRALINE HCL 25 MG TABLET PO (08:17)
[2025-05-05] MEDS: GABAPENTIN 100 MG CAPSULE PO ×3 (08:17→16:59)
[2025-05-05] MEDS: ASPIRIN 81 MG ENTERIC TABLET PO (08:18)
[2025-05-05] MEDS: BACLOFEN 10 MG TABLET PO ×2 (08:18→20:34)
[2025-05-05] MEDS: PANTOPRAZOLE SOD SESQUIHYDRATE 20 MG TAB PO (08:18)
[2025-05-05] MEDS: CEFDINIR 300 MG CAPSULE PO ×2 (08:18→20:34)
[2025-05-05] MEDS: ATORVASTATIN 40 MG TABLET PO (08:18)
--- NOTE | 2025-05-05 12:52 | P.PNIM_ITS ---
Progress Note: A&P Assessment and Plan (1) Physical deconditioning: Code(s): R53.81 - Other malaise Status: Acute Assessment and Plan: patient admitted to [facility] for rehabilitation after an acute stroke and extended hospitalization * PT/OT * wheelchair ordered for discharge planning needs * up to chair with all meals * patient with left footdrop unable to wear compression device due to DVT * fall risk precautions (2) Ischemic stroke: Code(s): I63.9 - Cerebral infarction, unspecified Status: Acute Assessment and Plan: patient with acute CVA resulting left-sided deficits * continued atorvastatin, ASA, Eliquis * PT OT * follow up with Neurology outpatient (3) DVT (deep venous thrombosis): Code(s): I82.409 - Acute embolism and thrombosis of unspecified deep veins of unspecified lower extremity Status: Acute Assessment and Plan: DVT in the left lower extremity * continued patient's Eliquis b.i.d. Plan Code status: Full code per patient DVT prophylaxis: Eliquis Stress ulcer prophylaxis: Protonix 40 daily PT/OT notes: swing bed Disposition: patient admitted to [facility] for continued rehabilitation after acute stroke. Plans for discharge home with home health on Sunday05/08/2025 Time Spent With Patient Time with patient: 15 - 25 minutes Subjective Date/time seen: 05/05/25 12:52 Interval history: Patient is a 60 year old male admitted for rehabilitation after an acute CVA [facility] bed program 05/05/2025: patient had been chair in no acute distress still has some mild swelling to left lower extremity secondary to DVT patient denies any chest pain, shortness a breath, nausea, vomiting plan for discharge on Sunday. Review of Systems Review of Systems: All systems reviewed & are unremarkable except as noted in HPI and below Exam Const: General: comfortable and no acute distress HENMT: Face/Nose/Sinus: Normal nares present Mouth: Yes moist mucous membranes Other: left facial droop noted Eyes: General: appearance normal, both eyes and all related structures Sclera: sclerae normal Resp: Effort & Inspection: normal respiratory effort Auscultation: clear to auscultation bilaterally Cardio: Rate: regular rate Rhythm: regular rhythm GI: Auscultation: normal bowel sounds Skin: General skin exam: normal color and no rashes or lesions noted Neuro: Other: left sided weakness upper and lower extremity, left facial droop noted, speech slightly slurred Extrem: General: edema (2-3+) left Psych: Mental Status: mental status grossly normal Affect: normal affect Objective Data Vital Signs Vital Signs: Vital Signs - 24 hr 05/04/25 16:00 05/05/25 00:00 05/05/25 07:52 Temperature 97.9 F 97.6 F 97.3 F L Pulse Rate 50 L 51 L 56 L Respiratory Rate 18 18 18 Blood Pressure 105/60 102/54 L 106/64 Pulse Oximetry 99 97 97 Oxygen Delivery Room Air Room Air Room Air Intake/Output Intake/Output: Intake & Output 05/02/25 05/03/25 05/04/25 05/05/25 23:59 23:59 23:59 23:59 Intake Total 2400 3240 2780 1140 Output Total 3650 2550 3100 1550 Balance -1250 010 -429 -986 Meds/Results Medications: Active Medications Generic Name Dose Route Start Last Admin Trade Name Freq PRN Reason Stop Dose Admin Acetaminophen 650 mg 04/25/25 15:45 05/05/25 08:17 Acetaminophen 325 Mg Tablet PO 650 mg Q4H PRN Administration Mild Pain (1-3) or Fever Apixaban 5 mg 04/25/25 21:00 05/05/25 08:16 Apixaban 2.5 Mg Tablet BY MOUTH 5 mg Q12HR VALENCIA Administration Aspirin 81 mg 04/26/25 09:00 05/05/25 08:18 Aspirin 81 Mg Enteric Tablet PO 81 mg QAM VALENCIA Administration Atorvastatin Calcium 40 mg 04/26/25 09:00 05/05/25 08:18 Atorvastatin 40 Mg Tablet PO 40 mg DAILY VALENCIA Administration Baclofen 10 mg 04/25/25 15:45 05/05/25 08:18 Baclofen 10 Mg Tablet PO 10 mg Q6H PRN Administration Muscle Spasm Cefdinir 300 mg 04/27/25 09:00 05/05/25 08:18 Cefdinir 300 Mg Capsule PO 300 mg Q12HR VALENCIA Administration Fluoxetine HCl 20 mg 04/26/25 09:00 05/05/25 08:17 Fluoxetine Hcl 20 Mg Capsule PO 20 mg DAILY VALENCIA Administration Gabapentin 100 mg 04/29/25 13:00 05/05/25 08:17 Gabapentin 100 Mg Capsule PO 100 mg TID VALENCIA Administration Montelukast Sodium 10 mg 04/25/25 18:00 05/04/25 17:56 Montelukast Sodium 10 Mg Tablet PO 10 mg QPM VALENCIA Administration Nitroglycerin 0.4 mg 04/28/25 13:28 04/28/25 13:43 Nitroglycerin Sl 0.4 Mg Tablet SUBLINGUAL 0.4 mg Q5MIN PRN Administration Chest Pain Pantoprazole Sodium 20 mg 04/26/25 09:00 05/05/25 08:18 Pantoprazole Sod Sesquihydrate 20 Mg Tab PO 20 mg DAILY VALENCIA Administration Polyethylene Glycol 17 gm 04/25/25 15:45 Polyethylene Glycol 3350 17 Gm Powd.Pack PO QAM PRN Constipation Sertraline HCl 25 mg 04/26/25 09:00 05/05/25 08:17 Sertraline Hcl 25 Mg Tablet PO 25 mg DAILY VALENCIA Administration Labs Labs: Laboratory Results - last 24 hr 05/05/25 07:06 WBC 5.0 RBC 4.11 L Hgb 12.8 L Hct 38.6 L MCV 93.9 MCH 31.1 H MCHC 33.2 RDW 12.9 Plt Count 166 MPV 9.5 Sodium 143 Potassium 4.0 Chloride 105 Carbon Dioxide 31 H Anion Gap 7 BUN 13 Creatinine 0.99 Estim Creat Clear Calc 87 Estimated GFR > 60 Glucose 93 Calculated Osmolality 296 H Calcium 9.3 Total Bilirubin 0.4 AST 20 ALT 19 Alkaline Phosphatase 78 Total Protein 6.4 Albumin 3.9 Quality VTE Prophylaxis VTE prophylaxis: pharmacologic ordered -Patient's previous records reviewed on admission -ER notes reviewed in detail on admission -discussed all findings and current treatment plan with patient/Family/POA -Consultations reviewed for recommendations -Patient's disposition for safe discharge discussed with case advocate -radiology imaging, EKG and test results I have personally reviewed and interpreted unless otherwise specified Dictation performed by [employer]api direct speech recognition software, therefore beet worker variants and typographical errors may occur. Hospitalist MIPS Advance Care Plan I have confirmed that the patient's Advanced Care Plan is present, code status is documented, or surrogate decision maker is listed in patient medical record.: Yes Medication Reconciliation I have utilized all available resources to obtain, update and review the patients current medications (includes all prescriptions, OTC, herbals, cannabis, and nutritional supplements).: Yes The patient is not eligible for med reconciliation; the patient is in a emergent medical situation where delaying treatment would jeopardize the patients health.: No
--- NOTE | 2025-05-05 13:00 | P.PNCROSS_ITS ---
Event Note Event Note Event Note: Patient is a 60 year old male who was admitted to [facility] for cont inued rehabilitation after suffering from acute CVA resulting in left-sided deficits also has history of left-sided foot drop. Patient's left upper extremity is completely flaccid minimal strength and movement in lower left extremity. at this time it would be beneficial for patient to receive a wheelchair. due to patient's current acute CVA which has resulted in significant limitations in his impairing his ability to participate in mobility related activities of daily living. due to patient's left lower extremity impairments and drop foot mobility is limited and can not be resolved with a cane or a walker. Plan is for patient to return home the in WBC will significantly improve the beneficial ability to participate in MRADLS, and will be used on regular basis in home. after discussion with patient he is not express any unwillingness to use a manual wheelchair and the patient has sufficient upper extremity function other physical and mental capabilities to safely self propel the in WBC in the home and on any typical day patient reports he does have a caregiver who was available and willing to provide assistance.
[2025-05-05 14:35] VITALS: BP 110/60; PULSE 99; RESP 18; TEMP 36.6; O2SAT 96
[2025-05-05] MEDS: MONTELUKAST SODIUM 10 MG TABLET PO (16:59)
[2025-05-06] VITALS: BP 110/71; PULSE 62; RESP 16; TEMP 36.6; O2SAT 99
[2025-05-06 08:00] VITALS: BP 113/71; PULSE 57; RESP 18; TEMP 36.2; O2SAT 97
[2025-05-06] MEDS: ACETAMINOPHEN 325 MG TABLET 650 MG PO ×2 (08:13→21:41)
[2025-05-06] MEDS: BACLOFEN 10 MG TABLET PO ×2 (08:14→21:41)
[2025-05-06] MEDS: GABAPENTIN 100 MG CAPSULE PO ×3 (08:14→17:06)
[2025-05-06] MEDS: APIXABAN 2.5 MG TABLET 5 MG BY MOUTH ×2 (08:14→21:41)
[2025-05-06] MEDS: SERTRALINE HCL 25 MG TABLET PO (08:14)
[2025-05-06] MEDS: ATORVASTATIN 40 MG TABLET PO (08:14)
[2025-05-06] MEDS: ASPIRIN 81 MG ENTERIC TABLET PO (08:14)
[2025-05-06] MEDS: CEFDINIR 300 MG CAPSULE PO ×2 (08:14→21:42)
[2025-05-06] MEDS: PANTOPRAZOLE SOD SESQUIHYDRATE 20 MG TAB PO (08:14)
[2025-05-06 16:00] VITALS: BP 113/67; PULSE 57; RESP 18; TEMP 36.6; O2SAT 97
[2025-05-06] MEDS: MONTELUKAST SODIUM 10 MG TABLET PO (17:06)
[2025-05-06 20:00] VITALS: PULSE 58; RESP 18; O2SAT 97
[2025-05-07] VITALS: BP 112/59; PULSE 58; RESP 16; TEMP 36.7; O2SAT 98
[2025-05-07 08:00] VITALS: BP 108/68; PULSE 57; RESP 18; TEMP 36.3; O2SAT 97
[2025-05-07] MEDS: ACETAMINOPHEN 325 MG TABLET 650 MG PO ×2 (08:05→21:15)
[2025-05-07] MEDS: APIXABAN 2.5 MG TABLET 5 MG BY MOUTH ×2 (08:06→21:15)
[2025-05-07] MEDS: ATORVASTATIN 40 MG TABLET PO (08:06)
[2025-05-07] MEDS: GABAPENTIN 100 MG CAPSULE PO ×3 (08:06→17:13)
[2025-05-07] MEDS: BACLOFEN 10 MG TABLET PO ×2 (08:06→21:15)
[2025-05-07] MEDS: PANTOPRAZOLE SOD SESQUIHYDRATE 20 MG TAB PO (08:06)
[2025-05-07] MEDS: ASPIRIN 81 MG ENTERIC TABLET PO (08:06)
[2025-05-07] MEDS: SERTRALINE HCL 25 MG TABLET PO (08:06)
[2025-05-07 16:00] VITALS: BP 96/81; PULSE 56; RESP 18; TEMP 36.4; O2SAT 100
[2025-05-07] MEDS: MONTELUKAST SODIUM 10 MG TABLET PO (17:13)
[2025-05-07 20:00] VITALS: PULSE 62; RESP 16; O2SAT 98
[2025-05-08] VITALS: BP 116/72; PULSE 60; RESP 16; TEMP 36.7; O2SAT 98
[2025-05-08 08:00] VITALS: BP 108/78; PULSE 78; RESP 18; TEMP 36.1; O2SAT 78
[2025-05-08] MEDS: APIXABAN 2.5 MG TABLET 5 MG BY MOUTH (08:31)
[2025-05-08] MEDS: GABAPENTIN 100 MG CAPSULE PO ×2 (08:32→12:37)
[2025-05-08] MEDS: ASPIRIN 81 MG ENTERIC TABLET PO (08:32)
[2025-05-08] MEDS: ACETAMINOPHEN 325 MG TABLET 650 MG PO (08:32)
[2025-05-08] MEDS: PANTOPRAZOLE SOD SESQUIHYDRATE 20 MG TAB PO (08:32)
[2025-05-08] MEDS: SERTRALINE HCL 25 MG TABLET PO (08:33)
[2025-05-08] MEDS: ATORVASTATIN 40 MG TABLET PO (08:33)
--- NOTE | 2025-05-08 16:06 | P.DS_ITS ---
DS: Admitting Diagnosis Discharge Date 05/08/2025 Admitting Diagnosis Ischemic stroke hypoglycemia left leg pain left shoulder pain pneumonia DS: Discharge Diagnosis Discharge Diagnosis (1) Physical deconditioning: Code(s): R53.81 - Other malaise Status: Acute (2) Ischemic stroke: Code(s): I63.9 - Cerebral infarction, unspecified Status: Acute (3) DVT (deep venous thrombosis): Code(s): I82.409 - Acute embolism and thrombosis of unspecified deep veins of unspecified lower extremity Status: Acute DS: Summary Hospital Course Reason for hospitalization: rehab Hospital Course: Physical deconditioning patient admitted to [facility] bed for rehabilitation after an acute stroke and extended hospitalization * PT/OT * wheelchair ordered for discharge planning needs * up to chair with all meals * patient with left footdrop unable to wear compression device due to DVT * fall risk precautions * discharge patient to [facility] today for continued halfway rehabilitation Ischemic Stroke patient with acute CVA resulting left-sided deficits * continued atorvastatin, ASA, Eliquis * PT OT * follow up with Neurology outpatient DVT (deep venous thrombosis) DVT in the left lower extremity * continued patient's Eliquis b.i.d. Time Spent with Patient Time attestation: Total time spent providing and/or coordinating discharge services: 35 Minutes Exam Const: General: comfortable and no acute distress HENMT: Face/Nose/Sinus: Normal nares present Mouth: Yes moist mucous membranes Other: left facial droop noted Eyes: General: appearance normal, both eyes and all related structures Sclera: sclerae normal Resp: Effort & Inspection: normal respiratory effort Auscultation: clear to auscultation bilaterally Cardio: Rate: regular rate Rhythm: regular rhythm GI: Auscultation: normal bowel sounds Skin: General skin exam: normal color and no rashes or lesions noted Neuro: Other: left sided weakness upper and lower extremity, left facial droop noted, speech slightly slurred Extrem: General: normal to inspection and edema (2+) left Psych: Mental Status: mental status grossly normal Affect: normal affect Discharge Plan Discharge Attending physician on discharge: Samuel Cavanaugh Consulting providers: Sonam Sweeney Discharging Clinician: Latoya Allred Patient Disposition: SNF Activity: as tolerated Diet: heart healthy Discharge Instructions: Patient discharging for continued skilled rehab at [facility] Patient Instructions: Apixaban (By mouth), Deep Vein Thrombosis (DC), Fall Prevention for Older Adults (DC), Ischemic Stroke (DC) Patient Language: Latvian Stand Alone Forms: General Discharge Information, Long Term Discharge Follow-up/Referrals: Trung,RAUL BatesP [Primary Care Provider, Unknown] Referral Note: Follow up with your PCP after discharge from SNF Discharge Medications: New acetaminophen 325 mg Tablet 650 mg PO Q4H PRN (Reason: Mild Pain (1-3) Or Fever) Qty: 30 0RF nitroglycerin [Nitrostat] 0.4 mg Tablet, Sublingual 0.4 mg sublingual Q5MIN PRN (Reason: Chest Pain) Qty: 10 0RF gabapentin 100 mg Capsule 100 mg PO TID Qty: 90 0RF Eliquis 5 mg tablet 5 mg PO Q12H Qty: 60 0RF Continued atorvastatin 40 mg tablet 40 mg PO DAILY baclofen 10 mg tablet 10 mg PO Q6H PRN (Reason: muscle spasm) fluoxetine 20 mg capsule 20 mg PO DAILY sertraline 25 mg tablet 25 mg PO DAILY pantoprazole 20 mg tablet,delayed release (DR/EC) 20 mg PO DAILY montelukast 10 mg tablet 10 mg PO QPM aspirin 81 mg Tablet,Delayed Release (Dr/Ec) 81 mg PO QAM Qty: 30 0RF polyethylene glycol 3350 [Miralax] 17 gram Powder In Packet 17 g PO QAM PRN (Reason: Constipation) Qty: 30 0RF Discontinued gabapentin 300 mg capsule 300 mg PO .TID acetaminophen 325 mg Tablet 650 mg PO Q4H PRN (Reason: Mild Pain (1-3) Or Fever) Qty: 30 0RF Eliquis 5 mg tablet See Rx Instructions .ROUTE .COMPLEX Qty: 60 0RF Rx Instructions: take 10 mg twice daily x 7 days then 5 mg twice daily ramelteon 8 mg tablet 8 mg PO DAILY PRN (Reason: insomnia) Qty: 30 0RF cefdinir 300 mg capsule 300 mg PO Q12H Qty: 6 0RF Patient Comments: 300 mg Q12H for 3 days. Quantity 6 tabs azithromycin 500 mg tablet 500 mg PO ONCE Qty: 1 0RF Rx Instructions: on 04/26/2025 Other Ambulatory Orders: PT Outpatient Eval and Treat (ONCE) Timeframe: [id number] Location: Determined by Patient Ordered By: Sonam Sweeney Date of admission: 04/25/25 14:37 Primary Care Provider: TrungJana Admitting Provider: Samuel Cavanaugh Attending physician on admission: Samuel Cavanaugh Condition: Stable Quality VTE Prophylaxis VTE prophylaxis: pharmacologic ordered
--- NOTE | 2025-05-08 16:56 | PC.NURSE ---
1630 patient care turned over [facility] transport. report was called to adela in [facility] to Larisa. discharge orders sent with him. personal belongings sent. 3 phones. pack of smokes, e-vap, and wallet.
--- NOTE | 2025-05-11 10:17 | PC.NURSE ---
discharge call back completed, dc to [facility], no questions regarding recept of dc instructions/medications
== END 2025-05-08 16:30 | DRG 64 ==
PROVIDERS: Nurse Practitioner Adult Health; Nurse Practitioner Family; Admitting Provider Internal Medicine; PCP Nurse Practitioner Family; Visit Provider Internal Medicine
DX: I63.9 Cerebral infarction, unspecified (principal); J18.9 Pneumonia, unspecified organism; G81.94 Hemiplegia, unspecified affecting left nondominant side; I82.402 Acute embolism and thrombosis of unspecified deep veins of left lower extremity; E16.2 Hypoglycemia, unspecified; R29.810 Facial weakness; R53.81 Other malaise; M21.372 Foot drop, left foot; M25.512 Pain in left shoulder; F17.290 Nicotine dependence, other tobacco product, uncomplicated; Z86.73 Personal history of transient ischemic attack (TIA), and cerebral infarction without residual deficits; Z88.0 Allergy status to penicillin
CPT/HCPCS: 36415; 80053; 82948; 84484; 85025; 85027; 93005; 97110; 97161; 97165; 97530; 97535; A4565; A9270